=== PATIENT | male | born 1950 | race Caucasian/White ===

== ENCOUNTER 2019-11-10 10:47 | Outpatient (REF) | payer BC, SELFPAY ==
--- NOTE | 2019-11-10 | US_ITS ---
EXAMINATION: US EXTRACRANIAL CAROTID DUPLEX, BILATERAL CLINICAL INFORMATION: Carotid stenosis. Status post bilateral carotid endarterectomy. COMPARISON: 08/30/2017 carotid ultrasound. TECHNIQUE: Real-time ultrasound and Doppler techniques (integrating B-mode 2-D vascular images, Doppler spectral analysis and color-flow Doppler imaging) were utilized to interrogate the extracranial carotid arteries, the vertebral arteries and proximal subclavian arteries bilaterally. The degree of stenosis is determined by criteria similar to NASCET. FINDINGS: Severe echogenic atherosclerotic plaque was seen in the right arteries bilaterally. Endarterectomy changes are seen at the level the carotid bulbs bilaterally. Color Doppler interrogation demonstrated normal arterial waveforms with brisk systolic upstrokes. No tardus parvus waveform was identified. Arterial velocities were as follows in cm/s: RIGHT: Proximal CCA: 61 Distal CCA: 82 Proximal ICA: 125 Mid ICA: 93 Distal ICA: 78 ECA: 97 LEFT: Proximal CCA: 114 Distal CCA: 109 Proximal ICA: 141 Mid ICA: 134 Distal ICA: 110 ECA: 74 The vertebral arteries demonstrated normal arterial waveforms and direction of flow. IMPRESSION: 1. Elevated velocities in the the proximal segments of the internal carotid arteries bilaterally, left greater than right as well as the mid segment of the left internal carotid artery in the range of 50-79% stenosis by velocity criteria.
== END 2019-11-10 10:48 | disposition home or self-care (01) ==
LOC: HO.HMGCX 10:47
PROVIDERS: PCP Physician Assistant; Visit Provider Surgery Vascular Surgery
DX: I65.23 Occlusion and stenosis of bilateral carotid arteries (principal); Z98.890 Other specified postprocedural states
CPT/HCPCS: 93880

== ENCOUNTER → 2019-12-04 10:00 | Outpatient (BNVA) | payer BC, SELFPAY | PROVIDERS: PCP Physician Assistant; Referring Provider Physician Assistant; Visit Provider Surgery Vascular Surgery | DX: Z76.89 Persons encountering health services in other specified circumstances (principal) ==

== ENCOUNTER 2020-04-01 07:11 | Outpatient (REF) | payer BC, SELFPAY ==
[2020-04-01 08:01] LABS: Hematocrit 42.3 % (42-52); Hemoglobin 13.6 g/dl (14.0-18.0); Mean Corpuscular HGB Conc 32.2 g/dl (31.0-36.0); Mean Corpuscular Hemoglobin 30.2 pg (27.0-33.0); Mean Platelet Volume 9.3 fL (9.4-12.4); Platelet Count 181 X10*3/uL (160-400); Red Cell Distribution Width 13.6 % (11.0-16.0); White Blood Count 4.6 X10*3/uL (4.8-10.8)
[2020-04-01 09:16] LABS: Creatinine Urine 90.07 mg/dL; Microalbumin Urine < 5.0 mg/L
[2020-04-01 09:20] LABS: Alanine Aminotransferase 20 U/L (0-40); Albumin Level 3.9 g/dL (3.5-5.0); Alkaline Phosphatase 74 U/L (39-117); Anion Gap 11 (12-20); Aspartate Amino Transferase 19 U/L (5-37); Bilirubin Total 0.4 mg/dL (0.0-1.0); Blood Urea Nitrogen 21 mg/dL (9-16); Calcium 8.3 mg/dL (8.4-10.2); Carbon Dioxide 22 mmol/L (22-29); Chloride 109 mmol/L (96-108); Cholesterol 191 mg/dL; Estimated Glomerular Filt Rate > 60; Glucose Fasting 86 mg/dL (60-99); HDL Cholesterol 42 mg/dL; LDL Cholesterol Calculated 84 mg/dl; Potassium 4.3 mmol/L (3.3-5.1); Sodium 138 mmol/L (135-145); Total Protein 6.2 g/dL (6.5-8.0); Triglycerides 327 mg/dL
[2020-04-01 09:34] LABS: Prostate Specific Antigen Scr 0.99 ng/mL (<0.05-4.0); TSH reflex Free T4 2.93 uIU/mL (0.32-4.0)
== END 2020-04-01 07:12 | disposition home or self-care (01) ==
LOC: HO.LAB 07:11
PROVIDERS: PCP Physician Assistant; Visit Provider Physician Assistant
DX: I10 Essential (primary) hypertension (principal); Z12.5 Encounter for screening for malignant neoplasm of prostate
CPT/HCPCS: 36415; 80053; 80061; 82043; 84153; 84443; 85027

== ENCOUNTER 2020-09-29 07:09 | Outpatient (REF) | payer BC, SELFPAY ==
[2020-09-29 08:59] LABS: Hematocrit 42.6 % (42-52); Hemoglobin 13.7 g/dl (14.0-18.0); Mean Corpuscular HGB Conc 32.2 g/dl (31.0-36.0); Mean Corpuscular Hemoglobin 29.7 pg (27.0-33.0); Mean Corpuscular Volume 92.2 fL (80-98); Mean Platelet Volume 9.6 fL (9.4-12.4); Platelet Count 230 X10*3/uL (160-400); Red Blood Count 4.62 X10*6/uL (4.60-5.80); Red Cell Distribution Width 13.8 % (11.0-16.0); White Blood Count 5.6 X10*3/uL (4.8-10.8)
[2020-09-29 09:48] LABS: Alanine Aminotransferase 15 U/L (0-40); Alkaline Phosphatase 52 U/L (39-117); Anion Gap 10 (12-20); Aspartate Amino Transferase 20 U/L (5-37); Bilirubin Total 0.4 mg/dL (0.0-1.0); Blood Urea Nitrogen 15 mg/dL (9-16); Calcium 8.9 mg/dL (8.4-10.2); Carbon Dioxide 22 mmol/L (22-29); Chloride 109 mmol/L (96-108); Cholesterol 169 mg/dL; Estimated Glomerular Filt Rate 51; Glucose Fasting 81 mg/dL (60-99); HDL Cholesterol 40 mg/dL; LDL Cholesterol Calculated 60 mg/dl; Potassium 4.4 mmol/L (3.3-5.1); Sodium 137 mmol/L (135-145); Total Protein 6.3 g/dL (6.5-8.0); Triglycerides 346 mg/dL
== END 2020-09-29 07:10 | disposition home or self-care (01) ==
LOC: HO.LAB 07:09
PROVIDERS: PCP Physician Assistant; Visit Provider Physician Assistant
DX: E78.5 Hyperlipidemia, unspecified (principal); I10 Essential (primary) hypertension
CPT/HCPCS: 36415; 80053; 80061; 85027

== ENCOUNTER 2020-10-25 08:24 | Outpatient (REF) | payer BC, SELFPAY ==
--- NOTE | 2020-10-25 11:10 | MHC.AU.ANO ---
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 Iker was last tested at this office on 08/26/2019 and found to have normal/borderline normal low frequency thresholds, dropping to a severe high frequency sensorineural hearing loss bilaterally with 100% speech understanding for both ears at 65 dB HL. Compared to 2019 results, thresholds had decreased slightly for both ears. Hearing aid trial was discussed at the last visit and advised [facility] to determine if [facility] is [facility] for [facility] services. Iker reports he has not determined [facility] eligibility at this time, but plans to pursue when ready. Ear History: History of and occupational noise exposure?: Yes Medical History: Medical History: Heart Problems (Arythmia), High Blood Pressure, High cholesterol Medication List: Metoprolol, Lisinipril, Simvastatin, Topiramate, Loratidine. Recently placed on an additional cholesterol medication, but name of medication is not known. Otoscopy: Right Ear: Unremarkable Left Ear: Unremarkable Tympanometry: Not performed at today's visit as all previous testing has indicated normal middle ear function bilaterally. Otoacoustic Emissions Not performed at today's visit. Hearing Evaluation: Transducer(s) Used: Insert Earphones Bone Conduction Method: Conventional Audiometry Stimuli Used: Pure Tones Right Ear: Description of Hearing: Normal hearing thresholds at 250 and 500 Hz, sloping to a severe high frequency sensorineural hearing loss. Left Ear: Description of Hearing: Normal to borderline normal hearing thresholds at 250 and 500 Hz, sloping to a severe high frequency sensorineural hearing loss. Speech Recognition Threshold (SRT): Method Used: Monitored Live Voice Stimuli Used: Spondee Words Right Ear: 20 dB HL Left Ear: 25 dB HL Word Discrimination: Method: Recorded Lists Word Lists Used: NU-6 Right Ear: 88% at 60 dB HL 100% at 65 dB HL Left Ear: 100% at 65 dB HL Comparison: Compared to the most recent evaluation: Hearing is stable. Recommendations: Audiological re-evaluation in one year. Will send a reminder card. Patient plans to contact [facility] to inquire about [facility] aid benefits. Diagnosis: Primary Diagnosis: H90.3 Bilateral Sensorineural Hearing Loss Services Performed: Comprehensive Audiological Evaluation (CPT 04268) Signature: Provider: Jade Brewster, [facility]
== END 2020-10-25 08:25 | disposition home or self-care (01) ==
LOC: HO.SH 08:24
PROVIDERS: Visit Provider Physician Assistant
DX: H90.3 Sensorineural hearing loss, bilateral (principal)
CPT/HCPCS: 92557

== ENCOUNTER 2021-04-11 06:55 | Outpatient (REF) | payer BC, SELFPAY ==
[2021-04-11 07:20] LABS: Hematocrit 43.8 % (42.0-52.0); Hemoglobin 13.8 g/dl (14.0-18.0); Mean Corpuscular HGB Conc 31.5 g/dl (31.0-36.0); Mean Corpuscular Hemoglobin 29.4 pg (27.0-33.0); Mean Corpuscular Volume 93.4 fL (80.0-98.0); Mean Platelet Volume 8.9 fL (9.4-12.4); Platelet Count 211 X10*3/uL (160-400); Red Blood Count 4.69 X10*6/uL (4.60-5.80); Red Cell Distribution Width 13.9 % (11.0-16.0); White Blood Count 6.3 X10*3/uL (4.8-10.8)
[2021-04-11 07:42] LABS: Alanine Aminotransferase 13 U/L (0-40); Alkaline Phosphatase 49 U/L (39-117); Anion Gap 10 (12-20); Aspartate Amino Transferase 20 U/L (5-37); Bilirubin Total 0.4 mg/dL (0.0-1.0); Blood Urea Nitrogen 19 mg/dL (9-16); Calcium 8.8 mg/dL (8.4-10.2); Carbon Dioxide 22 mmol/L (22-29); Chloride 111 mmol/L (96-108); Cholesterol 156 mg/dL; Estimated Glomerular Filt Rate 48; Glucose Fasting 85 mg/dL (60-99); HDL Cholesterol 46 mg/dL; LDL Cholesterol Calculated 69 mg/dl; Potassium 4.3 mmol/L (3.3-5.1); Sodium 139 mmol/L (135-145); Total Protein 6.4 g/dL (6.5-8.0); Triglycerides 209 mg/dL
[2021-04-11 07:43] LABS: Creatinine Urine 110.48 mg/dL; Microalbum/Creatinine Ratio Ur 4.5 ug/mg cr
[2021-04-11 08:03] LABS: TSH reflex Free T4 2.25 uIU/mL (0.32-4.0)
== END 2021-04-11 06:56 | disposition home or self-care (01) ==
LOC: HO.LAB 06:55
PROVIDERS: PCP Physician Assistant; Visit Provider Physician Assistant
DX: I10 Essential (primary) hypertension (principal); E78.1 Pure hyperglyceridemia
CPT/HCPCS: 36415; 80053; 80061; 82043; 84443; 85027

== ENCOUNTER 2021-06-27 08:51 | Outpatient (REF) | payer BC, SELFPAY ==
--- NOTE | ~2021-06-27 | US_ITS ---
EXAMINATION: US RETROPERITONEAL LIMITED (AORTA) CLINICAL INFORMATION: History of smoking. Hypertension. Encounter for screening for cardiovascular disorders. COMPARISON: None TECHNIQUE: Tapia-scale, color Doppler and spectral Doppler evaluation of the abdominal aorta. FINDINGS: The aorta is atherosclerotic. The measurements of the aorta in maximum AP and transverse dimensions respectively are as follows: Proximal: 2.3 x 2.1 cm. Mid: 1.9 x 1.7 cm. Distal: 1.7 x 1.7 cm. PSV: 89 cm/s. The measurements of the common iliac arteries in maximum AP and TRV dimensions are as follows: Right Common Iliac Artery: 1.1 x 1.1 cm. Left Common Iliac Artery: 1.0 x 1.3 cm. US/US abdominal aortic aneurysm IMPRESSION: Negative for abdominal aortic aneurysm.
== END 2021-06-27 08:52 | disposition home or self-care (01) ==
LOC: HO.US 08:51
PROVIDERS: Visit Provider Physician Assistant
DX: Z13.6 Encounter for screening for cardiovascular disorders (principal); F17.200 Nicotine dependence, unspecified, uncomplicated; I10 Essential (primary) hypertension
CPT/HCPCS: 76706

== ENCOUNTER 2021-10-11 07:28 | Outpatient (REF) | payer MEDICARE, SELFPAY ==
[2021-10-11 07:56] LABS: Hematocrit 42.8 % (42.0-52.0); Hemoglobin 13.8 g/dl (14.0-18.0); Mean Corpuscular HGB Conc 32.2 g/dl (31.0-36.0); Mean Corpuscular Hemoglobin 29.5 pg (27.0-33.0); Mean Corpuscular Volume 91.5 fL (80.0-98.0); Mean Platelet Volume 9.5 fL (9.4-12.4); Platelet Count 220 X10*3/uL (160-400); Red Blood Count 4.68 X10*6/uL (4.60-5.80); Red Cell Distribution Width 14.1 % (11.0-16.0); White Blood Count 6.1 X10*3/uL (4.8-10.8)
[2021-10-11 08:41] LABS: Alanine Aminotransferase 16 U/L (0-40); Alkaline Phosphatase 48 U/L (39-117); Anion Gap 15 (12-20); Aspartate Amino Transferase 22 U/L (5-37); Bilirubin Total 0.4 mg/dL (0.0-1.0); Blood Urea Nitrogen 20 mg/dL (9-16); Calcium 8.9 mg/dL (8.4-10.2); Carbon Dioxide 19 mmol/L (22-29); Chloride 111 mmol/L (96-108); Cholesterol 163 mg/dL; Estimated Glomerular Filt Rate 47; Glucose Fasting 91 mg/dL (60-99); HDL Cholesterol 40 mg/dL; LDL Cholesterol Calculated 79 mg/dl; Potassium 4.9 mmol/L (3.3-5.1); Sodium 140 mmol/L (135-145); Total Protein 6.6 g/dL (6.5-8.0); Triglycerides 221 mg/dL
[2021-10-11 09:04] LABS: Prostate Specific Antigen Scr 0.59 ng/mL (<0.05-4.0)
[2021-10-11 09:28] LABS: Estimated Average Glucose 111 mg/dL; Hemoglobin A1c % 5.5 %
[2021-10-11 09:39] LABS: Creatinine Urine 103.55 mg/dL; Microalbumin Urine < 5.0 mg/L
== END 2021-10-11 07:29 | disposition home or self-care (01) ==
LOC: HO.LAB 07:28
PROVIDERS: PCP Physician Assistant; Visit Provider Physician Assistant
DX: Z12.5 Encounter for screening for malignant neoplasm of prostate (principal); I10 Essential (primary) hypertension
CPT/HCPCS: 36415; 80053; 80061; 82043; 83036; 84153; 85027

== ENCOUNTER 2022-05-05 12:49 | Outpatient (REF) | payer MEDICARE, SELFPAY ==
--- NOTE | ~2022-05-05 | US_ITS ---
EXAMINATION: US EXTRACRANIAL CAROTID DUPLEX, BILATERAL CLINICAL INFORMATION: Bilateral stenosis COMPARISON: Carotid duplex on 11/10/2019 TECHNIQUE: Real-time ultrasound and Doppler techniques (integrating B-mode 2-D vascular images, Doppler spectral analysis and color-flow Doppler imaging) were utilized to interrogate the extracranial carotid arteries, the vertebral arteries and proximal subclavian arteries bilaterally. The degree of stenosis is determined by criteria similar to NASCET. FINDINGS: Right Side: 1. There is severe atherosclerotic plaque seen in the bifurcation/proximal ICA region. 2. The common carotid artery PSV proximally is 48 cm/s and distally 69 cm/s. 3. The proximal internal carotid artery velocities are 105 cm/s systolic and 23 cm/s diastolic. 4. The proximal external carotid artery PSV is 79 cm/s. 5. The vertebral artery shows antegrade flow, however flow is monophasic. 6. The subclavian artery waveforms are normal. Left Side: 1. There is severe atherosclerotic plaque seen in the bifurcation/proximal ICA region. 2. The common carotid artery PSV proximally is 138 cm/s and distally 132 cm/s. 3. The proximal internal carotid artery velocities are 107 cm/s systolic and 30 cm/s diastolic. 4. The proximal external carotid artery PSV is 186 cm/s. 5. The vertebral artery shows antegrade flow, however flow is monophasic. 6. The subclavian artery waveforms are normal. US/US carotid duplex BI IMPRESSION: There is severe atherosclerotic disease in the bilateral common carotid and internal carotid arteries, however by velocity criteria to disease corresponds to less than 50% stenosis. 1. RIGHT: Minimal, non-hemodynamically significant stenosis of the proximal right internal carotid artery corresponding to a 0-49% stenosis by velocity criteria. 2. LEFT: Minimal, non-hemodynamically significant stenosis of the proximal left internal carotid artery corresponding to a 0-49% stenosis by velocity criteria. 3. Monophasic waveforms in the bilateral vertebral arteries.
== END 2022-05-05 12:50 | disposition home or self-care (01) ==
LOC: HO.HMGCX 12:49
PROVIDERS: PCP Physician Assistant; Visit Provider Surgery Vascular Surgery
DX: I65.23 Occlusion and stenosis of bilateral carotid arteries (principal)
CPT/HCPCS: 93880

== ENCOUNTER 2022-05-08 06:59 | Outpatient (REF) | payer MEDICARE, SELFPAY ==
[2022-05-08 08:05] LABS: Hematocrit 42.7 % (42.0-52.0); Hemoglobin 13.5 g/dl (14.0-18.0); Mean Corpuscular HGB Conc 31.6 g/dl (31.0-36.0); Mean Corpuscular Hemoglobin 28.9 pg (27.0-33.0); Mean Corpuscular Volume 91.4 fL (80.0-98.0); Mean Platelet Volume 9.6 fL (9.4-12.4); Platelet Count 205 X10*3/uL (160-400); Red Blood Count 4.67 X10*6/uL (4.60-5.80); Red Cell Distribution Width 13.9 % (11.0-16.0); White Blood Count 5.5 X10*3/uL (4.8-10.8)
[2022-05-08 08:27] LABS: Alanine Aminotransferase 17 U/L (0-40); Albumin Level 3.9 g/dL (3.5-5.0); Alkaline Phosphatase 48 U/L (39-117); Anion Gap 11 (12-20); Aspartate Amino Transferase 20 U/L (5-37); Bilirubin Total 0.6 mg/dL (0.0-1.0); Blood Urea Nitrogen 15 mg/dL (9-16); Calcium 8.9 mg/dL (8.4-10.2); Carbon Dioxide 22 mmol/L (22-29); Chloride 111 mmol/L (96-108); Cholesterol 164 mg/dL; Estimated Glomerular Filt Rate 48; Glucose Fasting 81 mg/dL (60-99); HDL Cholesterol 36 mg/dL; LDL Cholesterol Calculated 91 mg/dl; Potassium 4.7 mmol/L (3.3-5.1); Sodium 139 mmol/L (135-145); Total Protein 6.2 g/dL (6.5-8.0); Triglycerides 188 mg/dL
[2022-05-08 08:46] LABS: Creatinine Urine 64.29 mg/dL; Microalbumin Urine < 5.0 mg/L
[2022-05-08 08:46] LABS: Prostate Specific Antigen Scr 0.84 ng/mL (<0.05-4.0); TSH reflex Free T4 3.81 uIU/mL (0.32-4.0)
== END 2022-05-08 07:00 | disposition home or self-care (01) ==
LOC: HO.LAB 06:59
PROVIDERS: PCP Physician Assistant; Visit Provider Physician Assistant
DX: Z12.5 Encounter for screening for malignant neoplasm of prostate (principal); I10 Essential (primary) hypertension; E78.2 Mixed hyperlipidemia
CPT/HCPCS: 36415; 80053; 80061; 82043; 84153; 84443; 85027

== ENCOUNTER → 2022-06-08 15:18 | Outpatient (BNVA) | payer MEDICARE, SELFPAY | PROVIDERS: PCP Physician Assistant; Visit Provider Surgery Vascular Surgery | DX: I65.23 Occlusion and stenosis of bilateral carotid arteries (principal) | CPT/HCPCS: 99212 ==

== ENCOUNTER 2022-09-18 12:45 | Outpatient (RCR) | payer MEDICARE, SELFPAY ==
[2022-11-17 09:25] LABS: Immature Retic Fraction 17.2 % (2.3-13.4); Retic HGB Equivalent 34.2 pg (30.0-35.0); Reticulocyte Percent 1.6 % (0.5-1.8); Reticulocytes Absolute 0.078 X10*6/uL (0.026-0.095)
[2022-11-17 10:42] LABS: Rheumatoid Factor < 13.0 IU/mL (<15.0)
[2022-11-17 10:48] LABS: C Reactive Protein 0.22 mg/dL (< or = 0.50)
[2022-11-17 10:54] LABS: Ferritin 87 ng/mL (20-250)
[2022-11-17 10:56] LABS: Folate 8.2 ng/mL (> or = 4.0); Vitamin B12 214 pg/mL (200-900)
[2022-11-20 15:23] LABS: Anti Nuclear Antibody Screen NEGATIVE (NEGATIVE)
[2022-11-21 05:48] LABS: HLA B27 Negative (Negative)
[2022-11-23 04:59] LABS: PTT (LAC) Screen 35 sec (<=40)
== END 2023-05-25 15:00 | disposition home health service (06) ==
LOC: HO.WCC 12:45
PROVIDERS: Visit Provider Physician Assistant
DX: S00.00XD Unspecified superficial injury of scalp, subsequent encounter (principal); D23.4 Other benign neoplasm of skin of scalp and neck; I10 Essential (primary) hypertension; Z79.899 Other long term (current) drug therapy; Z87.891 Personal history of nicotine dependence
CPT/HCPCS: 11042; 11045; 17250; 82607; 82728; 82746; 83516; 84134; 85045; 85597; 85598; 85613; 85730; 86038; 86140; 86146; 86147; 86431; 86812; 97597; 99212; 99213; 99214

== ENCOUNTER 2022-09-18 15:23 | Outpatient (REF) | payer MEDICARE, SELFPAY | END 2022-09-18 15:24 | disposition home or self-care (01) | LOC: HO.SH 15:23 | PROVIDERS: Visit Provider Physician Assistant | DX: Z01.118 Encounter for examination of ears and hearing with other abnormal findings (principal); H90.3 Sensorineural hearing loss, bilateral | CPT/HCPCS: 92557 ==

== ENCOUNTER 2022-11-17 07:07 | Outpatient (REF) | payer MEDICARE, SELFPAY ==
[2022-11-17 09:24] LABS: Hematocrit 45.6 % (42.0-52.0); Hemoglobin 14.4 g/dl (14.0-18.0); Mean Corpuscular HGB Conc 31.6 g/dl (31.0-36.0); Mean Corpuscular Hemoglobin 28.7 pg (27.0-33.0); Mean Corpuscular Volume 90.8 fL (80.0-98.0); Mean Platelet Volume 10.1 fL (9.4-12.4); Platelet Count 195 X10*3/uL (160-400); Red Blood Count 5.02 X10*6/uL (4.60-5.80); Red Cell Distribution Width 14.2 % (11.0-16.0); White Blood Count 5.1 X10*3/uL (4.8-10.8)
== END 2022-11-17 07:08 | disposition home or self-care (01) ==
LOC: HO.LAB 07:07
PROVIDERS: PCP Physician Assistant; Visit Provider Physician Assistant
DX: I10 Essential (primary) hypertension (principal)
CPT/HCPCS: 36415; 85027

== ENCOUNTER 2022-11-20 08:24 | Outpatient (AMB) | payer MEDICARE, SELFPAY ==
--- NOTE | 2022-11-20 08:38 | MHC.PC.OV ---
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 Trauma Registrar: Not Required per policy Accompanied by: Self / Same As Patient Allergies No Known Allergies Allergy (Verified 11/20/22 08:46) Medication List - Last Reconciled 11/20/22 by Ehsan Payne PA-C albuterol sulfate 90 mcg/actuation 1 inh inhalation QID PRN 30 days aspirin (Adult Aspirin Regimen) 81 mg PO DAILY ipratropium bromide 2 sprays intranasal BID lisinopril 30 mg PO DAILY metoprolol succinate ER 25 mg PO DAILY simvastatin 40 mg PO BEDTIME 90 days topiramate 50 mg (2 x 25 mg) PO BID 90 days Tobacco use date assessed: 11/20/22 Fall risk assessment: No Falls in past year Last assessed Fall Risk: 11/20/22 Dental Screening Dental Screen Date: 11/20/22 Did you have a dental visit in the last 12 months?: No Did you have a dental problem in the last 6 months where you did not have access to dental care?: No Was dental information given to patient?: Patient has dentist HPI 6mth f/u HPI Details Iker is a 71 y/o M here today for follow-up visit. PAtient has a Pmhx of HLD, Migraines, HTN, carotid stenosis. ? Concern--> has been seeing a net lead architect for scalp actinic keratoses to which he has gotten biopsies, unfortunately complicated by delayed wound healing [facility] Dermatology considering skin graft. Awaiting on rheumatology lab testing. He also reports having left knee tightness and pain. Does use a left knee brace while he golfs which has helped. He does report a previous history of left knee arthroscopic surgery for meniscus tear. ? .. ? HTN: Blood pressure elevated today in office.? reports his blood pressures at home are 120 is 130 systolic. Deneis any CP/ SOB, Edema in extremities. Is followed by briquette machine operator helper ([facility] cardiology). ? .. ? Carotid stenosis :? Is followed yearly by /Vascular.? Denies any further episodes of dizziness were syncope. Patient is a smoker has quit several years ago. REcent Carotid US -->There is severe atherosclerotic disease in the bilateral common carotid and internal carotid arteries, however by velocity criteria to disease corresponds to less than 50% stenosis. ? .. ? HLD: Patient on statin therapy and reporting no side effects. Most recent lipid panel showing acceptable LDL and total cholesterol. Has been making lifestyle modifications to his diet to reduce his cholesterol as well. Triglycerides are much improved, will discontinue fenofibrate due to risk of myopathy. Laboratory Tests 11/17/22 07:41 WBC 5.1 Immature Retic Fra ction 17.2 H Ferritin 87 C-Reactive Protein 0.22 Vitamin B12 214 Folate 8.2 Rheumatoid Factor < 13.0 PFSH Medical History Tubular adenoma of colon Former smoker Surgical History H/O carotid endarterectomy S/P wisdom tooth extraction Hx of shoulder surgery Family History Father Myocardial infarction Mother Hypertension Emphysema lung Myocardial infarction Substance use disorder Son No problems noted. Son No problems noted. Son No problems noted. Daughter No problems noted. Social History Housing: House Alcohol intake: current Alcohol intake frequency: 0-2 drinks per day Alcohol type: wine Patient Tobacco Use Status: Former Tobacco user Quit Date: 1999 e-Cigarette/Vaping Use: Never Used Second Hand Smoke Exposure: No service: No Current occupational status: unemployed and retired Current occupation: [employer] Cognitive needs: No Hearing needs: No Vision needs: Yes (Glasses) Questionnaire Thrive Questionnaire Date Thrive assessed: 05/17/22 JEFF-7 AMB Questionnaire JEFF-7 Date JEFF - 7 assessed: 05/17/22 Source: Developed by Drs. Tim Power, Digna Ascencio, Dani Herrera and colleagues, with an educational dianelys from [employer]. Review of Systems Const Denies headache(s) Eyes Denies loss of vision ENT Denies vertigo, Denies dizziness, Denies headache(s) and Denies sore throat Card Denies chest pain, Denies leg edema and Denies lightheadedness Resp Denies cough, Denies hemoptysis and Denies wheezing GI Denies abdominal pain, Denies melena, Denies constipation, Denies diarrhea and Denies vomiting Denies dysuria, Denies urinary frequency and Denies urinary urgency Musc Denies arthralgias, Denies joint swelling, Denies numbness and Denies tingling Neuro Denies Abnormal speech present, Denies behavioral changes, Denies vertigo, Denies dizziness, Denies headache(s), Denies loss of vision, Denies memory loss, Denies numbness and Denies tingling Psych Denies anxiety, Denies behavioral changes, Denies depression, Denies memory loss and Denies panic attacks Ronal/Lymph Denies easy bleeding and Denies easy bruising Aller/Immun Denies wheezing Physical exam (Primary Care) Vital Signs: Last Vital Signs Pulse 50 11/20/22 08:39 BP 140/90 H 11/20/22 08:39 Pulse Ox 96 11/20/22 08:39 Oxygen Delivery Method Room Air 11/20/22 08:39 BMI result Body Mass Index 25.8 Tobacco/Smoking Status: Tobacco use Status Tobacco use date assessed 11/20/22 11/20/22 08:40 Patient Tobacco Use Status Former Tobacco user 11/20/22 08:39 e-Cigarette/Vaping Use Never Used 11/20/22 08:39 Thrive Assessment: Date of Thrive Assessment Date Thrive assessed 05/17/22 11/20/22 08:39 Const General: healthy appearing, no acute distress, alert and awake Nutritional Appearance: well nourished Orientation/consciousness: oriented to person, oriented to place and oriented to time [facility] Ears: TM's normal bilaterally General nose exam: Normal nasal mucous membranes and turbinates present Eyes Conjunctivae: conjunctivae normal Sclerae: sclerae normal Pupils: Equal, round and reactive pupils present Neck Neck: Yes no lymphadenopathy and Yes no JVD Thyroid: Thyroid normal Carotids: no bruits Resp Effort & Inspection: normal respiratory effort and not tachypneic Auscultation: no crackles, no rales, no rhonchi and no wheezes Cardio Rate: regular rate Rhythm: regular rhythm Heart sounds: no murmurs and normal S1 and S2 GI Palpation (GI): Soft to palpation, nontender, no hepatomegaly and no splenomegaly Auscultation: normal bowel sounds Skin General skin exam: no rashes or lesions noted and dry skin Neuro General: oriented to person, oriented to place and oriented to time Cranial nerves: Yes Equal, round and reactive pupils present Speech: No Abnormal speech present Gait exam (Neuro): Normal gait present Motor exam (neuro): no tremor noted Extrem Right upper extremity: full ROM Left upper extremity: full ROM Right lower extremity: full ROM; no edema Left lower extremity: full ROM; no edema Psych Mental Status: mental status grossly normal Speech and movement: Normal speech and movement present Affect: normal affect Attitude: cooperative Thought process: Normal thought process present Office Procedures Flu Questionnaire Does the patient have a severe egg allergy?: No Immunizations flu vacc [id number] 6mos up(PF) 60 mcg(15 mcgx4)/0.5 mL IM syringe Performing Provider: Ehsan Payne PA-C [facility] Documented (not given) by: RADHA Quiles on 11/20/22 08:44 Reason Not Given: Patient Refused Assessment and Plan Assessment & Plan (1) HTN (hypertension): Code(s): I10 - Essential (primary) hypertension Qualifiers: Hypertension type: primary hypertension Qualified Code(s): I10 - Essential (primary) hypertension Plan: Patient's blood pressure slightly elevated today in office. He reports that home and at other medical office his blood pressures have been stable. Continues with lisinopril and metoprolol with good effect. Otherwise denies any chest discomfort, headaches dizziness. Goal blood pressures remain below 140/90 (2) Carotid stenosis: Comment: 2019 - bilateral carotid endarterectomy by Dr. Malloy Code(s): I65.29 - Occlusion and stenosis of unspecified carotid artery Qualifiers: Laterality: bilateral Qualified Code(s): I65.23 - Occlusion and stenosis of bilateral carotid arteries Plan: Patient continues to follow vascular. Most recent ultrasound showing severe right carotid stenosis though hemodynamically stable. Will continue follow-up with vascular surgeon. (3) HLD (hyperlipidemia): Code(s): E78.5 - Hyperlipidemia, unspecified Qualifiers: Hyperlipidemia type: mixed hyperlipidemia Qualified Code(s): E78.2 - Mixed hyperlipidemia Plan: Patient's most recent lipid panel showing at appropriate total cholesterol and LDL. Triglycerides are well managed. He continues to work on lifestyle modifications on reducing high cholesterol/high triglyceride foods. (4) Scalp wound: Code(s): S01.00XA - Unspecified open wound of scalp, initial encounter Qualifiers: Encounter type: subsequent encounter Open wound type: unspecified Qualified Code(s): S01.00XD - Unspecified open wound of scalp, subsequent encounter Plan: Continues to have difficulty with delayed wound healing over his scalp due to recent biopsies. Dermatology considering skin grafting. (5) Left knee pain: Code(s): M25.562 - Pain in left knee Qualifiers: Chronicity: chronic Qualified Code(s): M25.562 - Pain in left knee; G89.29 - Other chronic pain Plan: Reports having left knee tightness and pain. He reports having a surgery in his left knee to fix a meniscal tear. He would like another evaluation of his left knee through orthopedics. Will send for x-rays to evaluate for advancing osteoarthritis. Orders: Orders Influenza [id number] Immunization Today Z23 - Encounter for immunization Lipid Panel Today E78.2 - Mixed hyperlipidemia Microalbumin, Random (w Creat) Today I10 - Essential (primary) hypertension XR knee LT 3V Today G89.29 - Other chronic pain, M25.562 - Pain in left knee Comprehensive Rapelje. Panel Fast Today I10 - Essential (primary) hypertension Prostate Specific Antigen Scr Today I10 - Essential (primary) hypertension, Z12.5 - Encounter for screening for malignant neoplasm of prostate Referrals Orthopedics Referral M17.12 - Unilateral primary osteoarthritis, left knee, M25.562 - Pain in left knee Coding Level of Care Code Est Pt Level 4 (63076) Diagnoses Primary hypertension I10 Hypertension type: primary hypertension Bilateral carotid artery stenosis I65.23 Laterality: bilateral Mixed hyperlipidemia E78.2 Hyperlipidemia type: mixed hyperlipidemia Open wound of scalp, unspecified open wound type, subsequent encounter S01.00XD Encounter type: subsequent encounter Open wound type: unspecified Chronic pain of left knee M25.562; G89.29 Chronicity: chronic
[2022-11-20 08:39] VITALS: BP 140/90; PULSE 50; O2SAT 96; BMI 25.8
== END 2022-11-20 09:03 | disposition home or self-care (01) ==
PROVIDERS: Visit Provider Physician Assistant
DX: I10 Essential (primary) hypertension (principal); I65.23 Occlusion and stenosis of bilateral carotid arteries; E78.2 Mixed hyperlipidemia; S01.00XD Unspecified open wound of scalp, subsequent encounter; M25.562 Pain in left knee; G89.29 Other chronic pain
CPT/HCPCS: 99214

== ENCOUNTER 2022-11-24 08:45 | Outpatient (REF) | payer MEDICARE, SELFPAY ==
--- NOTE | ~2022-11-24 | XR_ITS ---
EXAMINATION: XR KNEE, LEFT CLINICAL INFORMATION: Left knee pain COMPARISON: None available. TECHNIQUE: Three views of the left knee. FINDINGS: BONES: Bony structures are intact. There is no focal bone destruction or periosteal reaction seen. JOINTS: Alignment of joints is normal. SOFT TISSUE: Soft tissue is normal. No radiopaque foreign body or abnormal air collection is seen. Marked atherosclerotic calcifications are seen in the left popliteal fossa. XR/XR knee LT 3V IMPRESSION: 1. Normal x-rays of left knee. No fracture or dislocation or signs of osteomyelitis are found. Some fractures could be difficult to visualize on plain x-rays, especially in the osteopenic and relatively old patients. If there are significant clinical suspicion or symptoms of fracture, further evaluation with CT or MRI scan should be considered.
== END 2022-11-24 08:46 | disposition home or self-care (01) ==
LOC: HO.XRAY 08:45
PROVIDERS: PCP Physician Assistant; Visit Provider Physician Assistant
DX: M25.562 Pain in left knee (principal); G89.29 Other chronic pain
CPT/HCPCS: 73562

== ENCOUNTER 2022-12-21 09:27 | Outpatient (AMB) | payer MEDICARE, SELFPAY ==
[2022-12-21 09:28] VITALS: BMI 25.8
--- NOTE | 2022-12-21 09:28 | A.OFFVIS_ITS ---
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 Patient reports that his right knee has been painful for about a year now. He has previous knee scope done with menisectomy, this was done in [place]. He states that he did great after the surgery up until the last year. He feels that the knee is sore, he is wearing knee brace which does help. No history of cortisone injections. 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 He complains of pain with daily activity, which he says worsens with exercise or overuse. He says his pain began ~1 year ago, and he describes this as soreness . He feels pain globally about his knee, which is slightly worse in the back. He wears a knee brace with activities, especially golfing, which gives him some relief. He walks once a week and does two sessions of [employer] a week, which tires him out. He says this exercise program involves cardio activities and is not done primarily while sitting. He denies any prior injections or PT. He has a hx of left knee for a meniscus tear in ~1999. This was done at [place]. He says his knee was doing well following surgery until last year when his pain began. [facility] Medical History Tubular adenoma of colon Former smoker Surgical History (Updated 12/21/22 @ 09:34 by Margot Puckett CMA) H/O left knee surgery (~1999) H/O carotid endarterectomy S/P wisdom tooth extraction Hx of shoulder surgery Family History Father Myocardial infarction Mother Hypertension Emphysema lung Myocardial infarction Substance use disorder Son No problems noted. Son No problems noted. Son No problems noted. Daughter No problems noted. Social History Housing: House Alcohol intake: current Alcohol intake frequency: 0-2 drinks per day Alcohol type: wine Patient Tobacco Use Status: Former Tobacco user Quit Date: 1999 e-Cigarette/Vaping Use: Never Used Second Hand Smoke Exposure: No service: No Current occupational status: unemployed and retired Current occupation: [employer] Cognitive needs: No Hearing needs: No Vision needs: Yes (Glasses) Review of Systems Const All systems reviewed & are unremarkable except as noted in HPI and below Physical Exam Vital Signs: BMI result Body Mass Index 25.8 Const General: no acute distress, alert and awake Orientation/consciousness: patient oriented x3 HEENT Head: Yes normocephalic and Yes atraumatic Eyes EOM: EOMs intact bilaterally Resp Effort & Inspection: normal respiratory effort and able to speak in complete sentences Cardio Jugular venous distension: no JVD Skin General skin exam: turgor normal Rashes: no rashes Neuro General: patient oriented x3 Extrem Other: Left Knee: Medial joint TTP No effusion 5-125 deg motion Psych Appearance: grossly normal Affect: normal affect Attitude: cooperative Office Procedures Joint Injection/Drain Joint Injection/Drain Details: Injected 1 mL of Decadron and 3 mL 1% lidocaine and 3 mL of 0.25% Marcaine. Site was prepped using aseptic technique. Patient tolerated the procedure well. Primary Site: left knee Approach Used: anterolateral Coding 31133 - Large joint Procedure code (CPT) selection complete Results Reviewed Results Reviewed: I personally reviewed relevant radiographs Normal x-rays of left knee. No fracture or dislocation or signs of osteomyelitis are found. Assessment & Plan Assessment & Plan (1) Left knee pain: Code(s): M25.562 - Pain in left knee Qualifiers: Chronicity: chronic Qualified Code(s): M25.562 - Pain in left knee; G89.29 - Other chronic pain Plan: This is a 71 year old man with left knee pain, and a hx of knee in 1999. He has pain primarily with overuse when exercising or prolonged ambulation. He finds relief from wearing a knee brace and denies any hx of injections or PT. His radiographs are unremarkable and his pain is not reproducible on exam. I discussed his diagnosis and treatment options. I performed a diagnostic steroid injection to his left knee, which he tolerated well. He will follow up if his symptoms persist or worsen and we will consider PT and activity modification. Plan Scribed for Parish Marie MD by Cirilo Horowitz medical technologist generalist, on 12/21/22 at 9:45 AM, EST. Coding Level of Care Code New Pt Level 4 (38625) Diagnoses Chronic pain of left knee M25.562; G89.29 Chronicity: chronic CPT Codes Coding - 97131 Large joint: 48158 - Large joint ([id number])
== END 2022-12-21 10:19 | disposition home or self-care (01) ==
PROVIDERS: PCP Physician Assistant; Visit Provider Orthopaedic Surgery
DX: M25.562 Pain in left knee (principal); G89.29 Other chronic pain
CPT/HCPCS: 20610; 99204

== ENCOUNTER → 2022-12-21 09:27 | Outpatient (BNVA) | payer MEDICARE, SELFPAY | PROVIDERS: PCP Physician Assistant; Visit Provider Orthopaedic Surgery | DX: M25.562 Pain in left knee (principal); G89.29 Other chronic pain | CPT/HCPCS: 20610; 99202; J0665; J1100 ==

== ENCOUNTER 2022-12-22 08:10 | Outpatient (AMB) | payer MEDICARE, SELFPAY ==
[2022-12-22 08:27] VITALS: BP 130/78; PULSE 78; TEMP 36.6; O2SAT 95; BMI 25.8
--- NOTE | 2022-12-22 08:27 | AM.OFFWIN_ITS ---
Intake Vital Signs 12/22/22 08:27 Height 5 ft 6 in Weight 160 lb BMI 25.8 BP 130/78 Blood Pressure Location Rt brachial Position Sitting Pulse 78 Pulse Source Pulse Oximeter Temp 97.8 F Temp Source Temporal Artery Scan Pulse Oximetry (%) 95 Oxygen Delivery Method Room Air Intake Visit Reasons: EST/cough X 3 weeks (lobby masked) Intake Note: pt is here for c/o cough x3 week Patient Tobacco Use Status: Former Tobacco user Quit Date: 1999 Allergies No Known Allergies Allergy (Verified 12/22/22 08:27) Do you need a note to return to daycare/school/sports/work: Yes HPI HPI Comments History of Present Illness Details This is a 71-year-old male who presents to the office today for sick visit. Patient complaining of a persistent cough x3 weeks. Patient states he developed viral URI symptoms such as sinus/nasal congestion, rhinorrhea, sore throat, and low-grade fevers approximately 3 weeks ago. He states that the symptoms have all resolved but he has a persistent dry cough. He states the cough is worse at night. He denies any significant shortness of breath, but does feel slightly winded during a coughing fit. He has been using his albuterol inhaler with good relief. He has been using PO benzonatate 200 mg 3 times daily as needed with good relief. [facility]LY [facility] Medical History Tubular adenoma of colon Former smoker Surgical History (Updated 12/21/22 @ 09:34 by Margot Puckett CMA) H/O left knee surgery (~1999) H/O carotid endarterectomy S/P wisdom tooth extraction Hx of shoulder surgery Family History Father Myocardial infarction Mother Hypertension Emphysema lung Myocardial infarction Substance use disorder Son No problems noted. Son No problems noted. Son No problems noted. Daughter No problems noted. Social History Housing: House Alcohol intake: current Alcohol intake frequency: 0-2 drinks per day Alcohol type: wine Patient Tobacco Use Status: Former Tobacco user Quit Date: 1999 e-Cigarette/Vaping Use: Never Used Second Hand Smoke Exposure: No service: No Current occupational status: unemployed and retired Current occupation: [employer] Cognitive needs: No Hearing needs: No Vision needs: Yes (Glasses) Review of Systems Const All systems reviewed & are unremarkable except as noted in HPI and below Reports no additional complaints Eyes Reports no additional complaints ENT Reports no additional complaints Card Reports no additional complaints Resp Reports no additional complaints GI Reports no additional complaints Reports no additional complaints Musc Reports no additional complaints Skin/Breast Reports system reviewed and no additional complaints, except as documented Neuro Reports no additional complaints Psych Reports no additional complaints Endo Reports no additional complaints Ronal/Lymph Reports no additional complaints Aller/Immun Reports no additional complaints Physical Exam Vital Signs: Last Vital Signs Temp 97.8 F 12/22/22 08:27 Pulse 78 12/22/22 08:27 BP 130/78 12/22/22 08:27 Pulse Ox 95 12/22/22 08:27 Oxygen Delivery Method Room Air 12/22/22 08:27 BMI result Body Mass Index 25.8 Const Other: Vital signs reviewed. Constitutional: Non-toxic appearing. No acute distress. Well-developed and well-nourished. HEENT: Normocephalic and atraumatic. Skin: Warm and dry. No rashes or lesions noted. Neck: Full and painless range of motion. No cervical lymphadenopathy. Cardio: Regular rate and rhythm. No murmurs, gallops, or rubs. No lower extremity edema. No JVD. Pulmonary: No respiratory distress. No accessory muscle usage. Scant expiratory wheezing. Gastrointestinal: Soft, nontender, and nondistended in all 4 quadrants. Normoactive bowel sounds in all 4 quadrants. Genitourinary: No CVA tenderness. Musculoskeletal: Normal range of motion in joints throughout the body. No deformity or other signs of injury. Neuro: Alert and oriented x4. Cranial nerves 2-12 grossly intact. No focal deficits appreciated. Psych: Normal mood and affect. Assessment & Plan Assessment & Plan (1) Acute bronchitis: Code(s): J20.9 - Acute bronchitis, unspecified Plan: This is a 71-year-old male who presents to the office complaining of a persistent dry cough x3 weeks in the setting of viral URI symptoms. On physical examination, patient has scant expiratory wheezing but his physical exam is otherwise benign and his vital signs are stable. History and physical most consistent with an acute post viral bronchitis. Patient sent home on p.o. prednisone 40 mg daily x5 days. He was instructed to continue using PO benzon atate 200 mg 3 times daily as needed for cough. He was instructed to continue using albuterol inhaler as needed for wheezing/shortness of breath. Patient was advised to follow-up here or proceed to the emergency room if he were to develop worsening sputum production, worsening shortness of breath, fever/chills, or hemoptysis. Patient verbalizes understanding and he is in agreement with the plan. Medications: New prednisone 40 mg (2 x 20 mg) PO DAILY 10 tabs 0RF Coding Level of Care Code Est Pt Level 3 (93456) Diagnoses Acute bronchitis J20.9
== END 2022-12-22 08:49 | disposition home or self-care (01) ==
PROVIDERS: PCP Physician Assistant; Visit Provider Physician Assistant Medical
DX: J20.9 Acute bronchitis, unspecified (principal)
CPT/HCPCS: 99213

== ENCOUNTER 2023-02-09 10:12 | Outpatient (REF) | payer MEDICARE, SELFPAY ==
--- NOTE | ~2023-02-09 | XR_ITS ---
EXAMINATION: XR SKULL CLINICAL INFORMATION: Nonhealing component of the sculp COMPARISON: None available. TECHNIQUE: 3 views of the skull were obtained. FINDINGS: Osseous structures are unremarkable. Soft tissues are normal. There is no evidence of abnormal soft tissues or gas in the soft tissues. Visualized paranasal sinuses are well aerated. Mastoids are well aerated. XR/XR skull <4V IMPRESSION: Unremarkable examination.
== END 2023-02-09 10:13 | disposition home or self-care (01) ==
LOC: HO.XRAY 10:12
PROVIDERS: PCP Physician Assistant; Visit Provider Physician Assistant
DX: S01.00XD Unspecified open wound of scalp, subsequent encounter (principal)
CPT/HCPCS: 70250

== ENCOUNTER 2023-03-12 07:32 | Day surgery (SDC) | payer MEDICARE, SELFPAY ==
[2023-03-08 14:58] VITALS: BMI 25.5
--- NOTE | 2023-03-09 09:17 | P.CONAN_ITS ---
HPI - Anesthesia Eval Consult details Narrative: 72yo M for Colonoscopy [facility] Active Problems Active Problems: All Active Problems (Updated 03/08/23 @ 14:57 by Catalina Riojas RN) Osteoarthritis of left knee (Acute) Left knee pain (Acute) Scalp wound (Acute) Colon cancer screening (Acute) Screening for AAA (abdominal aortic aneurysm) (Acute) Sensorineural hearing loss (SNHL) of both ears (Acute) Hypertriglyceridemia (Acute) Annual physical exam (Acute) Carotid stenosis (Acute) HTN (hypertension) (Acute) HLD (hyperlipidemia) (Acute) Past Medical History Medical History Osteoarthritis Carotid stenosis Elevated cholesterol HTN (hypertension) Tubular adenoma of colon Former smoker Family History Family History Father Myocardial infarction Mother Hypertension Emphysema lung Myocardial infarction Substance use disorder Son No problems noted. Son No problems noted. Son No problems noted. Daughter No problems noted. Surgical History Surgical History (Updated 03/08/23 @ 15:00 by Catalina Riojas RN) H/O colonoscopy H/O left knee surgery (~1999) H/O carotid endarterectomy S/P wisdom tooth extraction Hx of shoulder surgery Social History Social History Housing: House Alcohol intake: current Alcohol intake frequency: 0-2 drinks per day Alcohol type: wine Patient Tobacco Use Status: Former Tobacco user Quit Date: 1999 e-Cigarette/Vaping Use: Never Used Second Hand Smoke Exposure: No service: No Current occupational status: unemployed and retired Current occupation: [employer] Cognitive needs: No Hearing needs: No Vision needs: Yes (Glasses) Meds Allergies Allergy/AdvReac Type Severity Reaction Status Date / Time No Known Allergies Allergy Verified 12/22/22 08:27 Home Medications Medication Instructions Recorded Confirmed Last Taken Type aspirin 81 mg tablet,delayed 81 mg PO DAILY 12/04/19 03/08/23 Unknown History release (Adult Aspirin Regimen) metoprolol succinate 25 mg 25 mg PO DAILY 12/04/19 03/08/23 Unknown History tablet,extended release 24 hr Exam Height,Weight and Vital Signs: Height 5 ft 6 in Weight 71.668 kg Pertinent Lab Results Pertinent Lab Results: Laboratory Tests 11/17/22 07:41 WBC 5.1 Hgb 14.4 Hct 45.6 Plt Count 195 Assessment and Plan Assessment Anesthesia Assessment: Chart Reviewed
--- NOTE | 2023-03-12 07:23 | HO.ANESPROP2 ---
COUNT INCLUDES THE [facility] Active Problems Active Problems: All Active Problems (Updated 03/12/23 @ 06:32 by Maine Mtz RN) Osteoarthritis of left knee (Acute) Left knee pain (Acute) Scalp wound (Acute) Colon cancer screening (Acute) Screening for AAA (abdominal aortic aneurysm) (Acute) Sensorineural hearing loss (SNHL) of both ears (Acute) Hypertriglyceridemia (Acute) Annual physical exam (Acute) Carotid stenosis (Acute) HTN (hypertension) (Acute) HLD (hyperlipidemia) (Acute) Past Medical History Medical History Asthma History of supraventricular tachycardia Migraines Osteoarthritis Carotid stenosis Elevated cholesterol HTN (hypertension) Tubular adenoma of colon Former smoker Functional capacity: independent ambulation Family History Family History Father Myocardial infarction Mother Hypertension Emphysema lung Myocardial infarction Substance use disorder Son No problems noted. Son No problems noted. Son No problems noted. Daughter No problems noted. Family history of problems with anesthesia: No Surgical History Surgical History H/O colonoscopy H/O left knee surgery (~1999) H/O carotid endarterectomy S/P wisdom tooth extraction Hx of shoulder surgery Social History Social History Housing: House Alcohol intake: current Alcohol intake frequency: 0-2 drinks per day Alcohol type: wine Patient Tobacco Use Status: Former Tobacco user Quit Date: 1999 e-Cigarette/Vaping Use: Never Used Second Hand Smoke Exposure: No service: No Current occupational status: unemployed and retired Current occupation: [employer] Cognitive needs: No Hearing needs: No Vision needs: Yes (Glasses) Meds Allergies Allergy/AdvReac Type Severity Reaction Status Date / Time No Known Allergies Allergy Verified 12/22/22 08:27 Active Medications: Current Medications Lactated Ringer's (Lr) 1,000 mls @ 100 mls/hr IVCONT .Q10H RAFA Sodium Biphosphate/Sodium Phosphate (Sodium Phosphate,Maverick-Dibasic 133 Ml Enema) 133 ml FL ONCE PRN PRN Reason: Poor Colonoscopy Prep Results Home Medications Medication Instructions Recorded Confirmed Last Taken Type aspirin 81 mg tablet,delayed 81 mg PO DAILY 12/04/19 03/08/23 Unknown History release (Adult Aspirin Regimen) metoprolol succinate 25 mg 25 mg PO DAILY 12/04/19 03/08/23 03/12/23 History tablet,extended release 24 hr Exam Height,Weight and Vital Signs: Height 5 ft 6 in Weight 71.668 kg Airway Mallampati Class: II TM Dist: >3cm Neck ROM: Full Heart: RRR Lungs: CTA Assessment and Plan Assessment Anesthesia Assessment: Anesthesia Plan Discussed Final Anesthetic Review Family History of Problems with Anesthesia: No NPO: Yes ASA Class: II Final Preanesthetic Review: Meds/Allgs Chart Reviewed, Consent Obtained/Reviewed and Anes Risks/Benef Reviewed Patient Risk: Low Procedure Risk: Low Anesthetic Plan Anesthetic Plan: MAC: Disposition: Standard PACU
[2023-03-12 07:43] VITALS: BMI 26.0
[2023-03-12 08:08] VITALS: BP 114/75; PULSE 80; RESP 16; TEMP 36.6; O2SAT 97
[2023-03-12] MEDS: Lactated Ringers 1,000 ML 100 ML IVCONT (08:14)
[2023-03-12 09:45] VITALS: BP 118/105; PULSE 60; TEMP 36.4; O2SAT 97
--- NOTE | 2023-03-12 09:47 | PM.OP ---
Brief Operative Note Date of Service: 03/12/23 Pre-op diagnosis: Screening Post-op diagnosis: other (Colon polyps) Procedure: Colonoscopy to the cecum with bx/removal of polyps Surgeon: Tim Schmitt MD Anesthesia: MAC Was an Restaurant Assistant used for this Procedure?: No Estimated blood loss (mL): 2.0 Pathology: other (A. Transverse colon polyp B. Polyp at 20cm C. Rectal polyp) Condition: stable Disposition: PACU
[2023-03-12 10:00] VITALS: BP 77/45; PULSE 51; RESP 16; O2SAT 96
[2023-03-12 10:15] VITALS: BP 98/56; PULSE 50; O2SAT 98
--- NOTE | 2023-03-12 10:27 | HO.POSTANES ---
Post Anesthesia Evaluation Post Anesthesia Evaluation Date of Service: 03/12/23 Vital Signs: Vital Signs Temp Pulse Resp BP Pulse Ox O2 Del Method 03/12/23 10:15 50 89/50 L 98 Room Air 03/12/23 10:00 51 16 77/45 L 96 Room Air 03/12/23 09:45 97.5 F 60 118/105 H 97 Room Air 03/12/23 08:08 97.8 F 80 16 114/75 97 Room Air Anesthesia: Monitored Mental Status: Awake Pain Control: Satisfactory Nausea/Vomiting: None Hydration: Adequate Anesthesia-Related Issues: No Anes. Related Issues
[2023-03-12 10:29] VITALS: BP 108/59; PULSE 87; RESP 16; O2SAT 98
--- NOTE | 2023-03-12 11:35 | OP_ITS ---
DATE OF SERVICE: 03/12/2023 SURGEON: Tim Schmitt MD INDICATIONS: The patient presents for evaluation of colorectal cancer screening and personal history of tubular adenoma of the colon. Full consent was obtained from him for this, including risks of bleeding and perforation. PREOPERATIVE DIAGNOSIS: POSTOPERATIVE DIAGNOSIS: PROCEDURE PERFORMED: Colonoscopy to cecum with biopsy and removal of polyps. ESTIMATED BLOOD LOSS: COMPLICATIONS: ANESTHESIA: Medication used: Monitored anesthesia care. ASSISTANTS: SPECIMENS: PREOPERATIVE DIAGNOSES: Colorectal cancer screening and personal history of tubular adenoma of the colon. POSTOPERATIVE DIAGNOSES: Colorectal cancer screening and personal history of tubular adenoma of the colon, small colon polyps, diverticulosis, and internal hemorrhoids. DESCRIPTION OF PROCEDURE: The patient was placed in the left lateral decubitus position. The digital rectal exam revealed no abnormalities. The Olympus video pediatric colonoscope was entered into the rectum and advanced easily to the cecum. Once in the cecum, I did identify normal-appearing cecal pouch with appendiceal orifice and a normal-appearing ileocecal valve. The entire cecum and ileocecal valve appeared normal. The scope was slowly withdrawn assessing all mucosal surfaces carefully. Preparation was excellent. In the transverse colon, at 20 cm, and in the rectum there were flat less than 5 mm polyps, which were each biopsied and completely removed with cold biopsy forceps. I did not visualize any other polyps, colitis, nor angiodysplasia. There was a moderate amount of sigmoid diverticulosis. In the rectum, scope was retroflexed visualizing internal hemorrhoids, but no other pathology. The rectal mucosa appeared normal. The scope was straightened out and withdrawn from the patient. He tolerated the procedure well and was returned to the recovery area in stable condition. IMPRESSION: 1. Small colon polyps. 2. Diverticulosis. 3. Internal hemorrhoids. PLAN: The results of biopsy will be checked. I would recommend a repeat colonoscopy in 5 years for further screening. He was advised to resume his aspirin in 48 hours. MD RAMIRO De La O/LEATHA / [phone]
== END 2023-03-12 10:55 | disposition home or self-care (01) ==
PROVIDERS: PCP Physician Assistant; Visit Provider Internal Medicine
PROC: 0DJD8ZZ Inspection of Lower Intestinal Tract, Via Natural or Artificial Opening Endoscopic (ICD-10-PCS; CPT 45378; principal; 2023-03-12 08:40)
DX: Z12.11 Encounter for screening for malignant neoplasm of colon (principal); Z86.010 Personal history of colon polyps; D12.3 Benign neoplasm of transverse colon; D12.8 Benign neoplasm of rectum; K63.5 Polyp of colon; K57.30 Diverticulosis of large intestine without perforation or abscess without bleeding; K64.8 Other hemorrhoids; I10 Essential (primary) hypertension; E78.5 Hyperlipidemia, unspecified; J45.909 Unspecified asthma, uncomplicated; Z79.82 Long term (current) use of aspirin; Z98.890 Other specified postprocedural states; Z87.891 Personal history of nicotine dependence; Z79.899 Other long term (current) drug therapy
CPT/HCPCS: 45380; 88305; J2704

== ENCOUNTER 2023-03-30 11:27 | Outpatient (AMB) | payer MEDICARE, SELFPAY ==
--- NOTE | 2023-03-30 11:29 | MHC.OFFVIS ---
Intake Intake Visit Reasons: Unilateral primary osteoarthritis, left knee Intake Note: Iker is a 72 year old male who presents today for a follow up of his left knee osteoarthritis, last injection was done 12/21/22. Patient reports that this injection continues to be helpful. He does not feel that he needs a repeat injection at this point. He wears brace with increased activity which is helpful Allergies No Known Allergies Allergy (Verified 12/22/22 08:27) HPI Unilateral primary osteoarthritis, left knee HPI Details Iker is a 72 year old man who returns to discuss his left knee pain. He received a diagnostic steroid injection on 12/21/22, with good relief, and has found good support from wearing a knee brace. He denies nay pain today and says the injection continues to be helpful for him. He has a hx of left knee for a meniscus tear in ~1999. This was done at [facility]. He says his knee was doing well following surgery until his pain began. [facility] Medical History Wounds, multiple Asthma History of supraventricular tachycardia Migraines Osteoarthritis Carotid stenosis Elevated cholesterol HTN (hypertension) Tubular adenoma of colon Former smoker Surgical History H/O colonoscopy H/O left knee surgery (~1999) H/O carotid endarterectomy S/P wisdom tooth extraction Hx of shoulder surgery Family History Father Myocardial infarction Mother Hypertension Emphysema lung Myocardial infarction Substance use disorder Son No problems noted. Son No problems noted. Son No problems noted. Daughter No problems noted. Social History Housing: House Alcohol intake: current Alcohol intake frequency: 0-2 drinks per day Alcohol type: wine Patient Tobacco Use Status: Former Tobacco user Quit Date: 1999 e-Cigarette/Vaping Use: Never Used Second Hand Smoke Exposure: No service: No Current occupational status: unemployed and retired Current occupation: [employer] Cognitive needs: No Hearing needs: No Vision needs: Yes (Glasses) Review of Systems Const All systems reviewed & are unremarkable except as noted in HPI and below Physical Exam Const General: no acute distress, alert and awake Orientation/consciousness: patient oriented x3 HEENT Head: Yes normocephalic and Yes atraumatic Eyes EOM: EOMs intact bilaterally Resp Effort & Inspection: normal respiratory effort and able to speak in complete sentences Cardio Jugular venous distension: no JVD Skin General skin exam: turgor normal Rashes: no rashes Neuro General: patient oriented x3 Extrem Other: nl gait nl motion no ttp Psych Appearance: grossly normal Affect: normal affect Attitude: cooperative Assessment & Plan Assessment & Plan (1) Osteoarthritis of left knee: Code(s): M17.12 - Unilateral primary osteoarthritis, left knee Plan: Left knee OA Nothing to do as he is feeling well. May follow up as needed. Plan Prepared for Parish Marie MD by Cirilo Horowitz, medical underwriter, on 03/30/23 at 11:38 AM, EST. Coding Level of Care Code Est Pt Level 3 (68229) Diagnoses Osteoarthritis of left knee M17.12
== END 2023-03-30 11:49 | disposition home or self-care (01) ==
PROVIDERS: PCP Physician Assistant; Visit Provider Orthopaedic Surgery
DX: M17.12 Unilateral primary osteoarthritis, left knee (principal)
CPT/HCPCS: 99212

== ENCOUNTER → 2023-03-30 11:27 | Outpatient (BNVA) | payer MEDICARE, SELFPAY | PROVIDERS: PCP Physician Assistant; Visit Provider Orthopaedic Surgery | DX: M17.12 Unilateral primary osteoarthritis, left knee (principal) | CPT/HCPCS: 99212 ==

== ENCOUNTER 2023-05-21 06:59 | Outpatient (REF) | payer MEDICARE, SELFPAY ==
[2023-05-21 07:44] LABS: Alanine Aminotransferase 25 U/L (0-40); Albumin Level 3.9 g/dL (3.5-5.0); Alkaline Phosphatase 70 U/L (39-117); Aspartate Amino Transferase 24 U/L (5-37); Bilirubin Direct 0.2 mg/dL (0.0-0.5); Bilirubin Total 0.6 mg/dL (0.0-1.0); Cholesterol 178 mg/dL (<200); HDL Cholesterol 64 mg/dL (>40); LDL Cholesterol Calculated 82 mg/dL (<100); Total Protein 6.7 g/dL (6.5-8.0); Triglycerides 162 mg/dL (<150)
[2023-05-21 07:47] LABS: Alanine Aminotransferase 26 U/L (0-40); Alkaline Phosphatase 70 U/L (39-117); Anion Gap 13 (12-20); Aspartate Amino Transferase 25 U/L (5-37); Bilirubin Total 0.6 mg/dL (0.0-1.0); Blood Urea Nitrogen 17 mg/dL (9-16); Calcium 8.9 mg/dL (8.4-10.2); Carbon Dioxide 22 mmol/L (22-29); Chloride 110 mmol/L (96-108); Cholesterol 183 mg/dL (<200); Estimated Glomerular Filt Rate > 60; Glucose Fasting 79 mg/dL (60-99); HDL Cholesterol 64 mg/dL (>40); LDL Cholesterol Calculated 86 mg/dL (<100); Potassium 4.3 mmol/L (3.3-5.1); Sodium 141 mmol/L (135-145); Total Protein 6.8 g/dL (6.5-8.0); Triglycerides 165 mg/dL (<150)
[2023-05-21 08:04] LABS: Prostate Specific Antigen Scr 0.84 ng/mL (<0.05-4.0)
[2023-05-21 09:15] LABS: Microalbum/Creatinine Ratio Ur 37.8 ug/mg cr (<30)
== END 2023-05-21 07:00 | disposition home or self-care (01) ==
LOC: HO.LAB 06:59
PROVIDERS: Absent Provider Physician Assistant; PCP Physician Assistant; Visit Provider Internal Medicine
DX: I10 Essential (primary) hypertension (principal); E78.2 Mixed hyperlipidemia; Z12.5 Encounter for screening for malignant neoplasm of prostate
CPT/HCPCS: 36415; 80053; 80061; 80076; 82043; 82570; 84153

== ENCOUNTER 2023-05-23 08:23 | Outpatient (AMB) | payer MEDICARE, SELFPAY ==
[2023-05-23 08:25] VITALS: BP 144/88; PULSE 57; O2SAT 97; BMI 25.8
--- NOTE | 2023-05-23 08:25 | MHC.PC.OV ---
Vital Signs 05/23/23 08:25 Height 5 ft 6 in Weight 160 lb BMI 25.8 BP 144/88 H Blood Pressure Location Lt brachial Position Sitting Pulse 57 Pulse Source Pulse Oximeter Pulse Oximetry (%) 97 Oxygen Delivery Method Room Air Intake Visit Reasons: Annual Exam - see comments Intake Note: Patient here for a physical exam Brand Protection Manager Required: No Accompanied by: Self / Same As Patient Allergies No Known Allergies Allergy (Verified 05/23/23 08:45) Medication List - Last Reconciled 05/23/23 by Ehsan Payne PA-C albuterol sulfate 90 mcg/actuation 1 inh inhalation QID PRN 30 days aspirin (Adult Aspirin Regimen) 81 mg PO DAILY ipratropium bromide 2 sprays intranasal BID lisinopril 10 mg PO DAILY 90 days metoprolol succinate ER 25 mg PO DAILY rosuvastatin (Crestor) 20 mg PO DAILY topiramate 50 mg (2 x 25 mg) PO BID 90 days Tobacco use date assessed: 05/23/23 Fall risk assessment: No Falls in past year Last assessed Fall Risk: 05/23/23 Dental Screening Dental Screen Date: 05/23/23 Did you have a dental visit in the last 12 months?: Yes Did you have a dental problem in the last 6 months where you did not have access to dental care?: No Was dental information given to patient?: Patient has dentist HPI Annual Exam - see comments HPI Details Iker is a 72 y/o M here today for routine annual physical. Patient has a Pmhx of HLD, Migraines, HTN, carotid stenosis. ? 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 Second opinion with Dermatology diagnosed with erosive skin disorder the repeat biopsy. Was using clobetasol which really helped heal his skin.. ? .. ? HTN: Blood pressure elevated today in office. He believes he has an element of white coat hypertension. He reports at home having low blood pressure readings 90 to 100 systolic. He does report at these times feeling somewhat tired and fatigued. Will like to decrease his lisinopril dose to 10 mg. ? .. ? Carotid stenosis :? Is followed yearly by /Vascular.? Denies any further episodes of dizziness were syncope. Patient is a smoker has quit several years ago. REcent Carotid US -->There is severe atherosclerotic disease in the bilateral common carotid and internal carotid arteries, however by velocity criteria to disease corresponds to less than 50% stenosis. His statin potency has been increased to better manage his LDL. Now on Crestor 20 mg ? .. ? HLD: Patient on statin therapy and reporting no side effects. Most recent lipid panel showing acceptable LDL and total cholesterol. Has been making lifestyle modifications to his diet to reduce his cholesterol as well. Vaccine: UTD with COVID, ,UTD with Tdap and PCV, Considering Shingrex vaccine Colonoscopy:? Done in [address] Schmitt, polyp found tubular adenoma repeat 5 years- Laboratory Tests 05/08/22 05/21/23 05/21/23 07:06 07:06 07:10 Creatinine 1.44 H 1.02 Fasting Glucose 79 Cholesterol 178 LDL Cholesterol, C alc 82 PSA Screen 0.84 Urine Microalbumin 38.0 PFSH Medical History Wounds, multiple Asthma History of supraventricular tachycardia Migraines Osteoarthritis Carotid stenosis Elevated cholesterol HTN (hypertension) Tubular adenoma of colon Former smoker Surgical History (Updated 05/23/23 @ 08:35 by Ehsan Payne PA-C) H/O colonoscopy H/O left knee surgery (~1999) H/O carotid endarterectomy S/P wisdom tooth extraction Hx of shoulder surgery Family History Father Myocardial infarction Mother Hypertension Emphysema lung Myocardial infarction Substance use disorder Son No problems noted. Son No problems noted. Son No problems noted. Daughter No problems noted. 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 1. Little interest or pleasure in doing things: not at all 2. Feeling down, depressed, or hopeless: not at all 3. Trouble falling or staying asleep, or sleeping too much: not at all 4. Feeling tired or having little energy: not at all 5. Poor appetite or overeating: not at all 6. Feeling bad about yourself - or that you are a failure or have let yourself or your family down: not at all 7. Trouble concentrating on things, such as reading the newspaper or watching television: not at all 8. Moving or speaking so slowly that other people could have noticed. Or the opposite - being so fidgety or restless that you have been moving around a lot more than usual: not at all 9. Thoughts that you would be better off or of hurting yourself in some way: not at all Total score: 0 Depression Screening Interpretation: Negative Depression Screening Done: Yes 62824 - PHQ-9 Billing: Yes Source: Developed by Drs. Tim Power, Digan Ascencio, Dani Herrera and colleagues, with an educational dianelys from [employer]. Thrive Questionnaire Date Thrive assessed: 05/23/23 I am a: Patient What is your living situation today?: I have a steady place to live Within the past 12 months, did the food you bought not last and you didn't have the money to get more?: Never true Within the past 12 months, did you worry whether your food would run out before you got money to buy more?: Never true Do you have trouble paying for medicines?: No Do you have trouble getting transportation to medical appointments?: No Do you have trouble paying your heating and electricity bill?: No Do you have trouble taking care of your child, family member or friend?: No Do you have trouble with day-to-day activities such as bathing, preparing meals, shopping, managing finances, etc.?: No Are you currently unemployed and looking for a job?: No Are you interested in more education?: No Please select the resources that you would like help with: None Currently or been in a relationship where the following occur: no concerns reported THRIVE Score: 0 AUDIT C Alcohol Use Questionnaire (AUDIT-C) 1. How often do you have a drink containing alcohol?: 4 or more times a week 2. How many drinks containing alcohol do you have on a typical day when you are drinking?: 1 or 2 3. How often do you have six or more drinks on one occasion?: Never Total Score: 4 JEFF-7 AMB Questionnaire JEFF-7 Date JEFF - 7 assessed: 05/23/23 Feeling nervous, anxious, or on edge: 0 = Not at all Not being able to stop or control worryin = Not at all Worrying too much about different things: 0 = Not at all Trouble relaxin = Not at all Being so restless that it is hard to sit still: 0 = Not at all Becoming easily annoyed or irritable: 0 = Not at all Feeling afraid as if something awful might happen: 0 = Not at all Total JEFF-7 score (0-4 normal; 5-9 mild; 10-14 moderate; 15-21 severe): 0 Source: Developed by Drs. Tim Power, Digna Ascencio, Dani Herrera and colleagues, with an educational dianelys from [employer]. JEFF-7 Assessment Billing JEFF-7 Assessment Tool: JEFF-7 Assessment 61689 Review of Systems Const Denies body aches, Denies chills, Denies excessive sweating, Denies fatigue, Denies fever(s) and Denies headache(s) Eyes Denies blurry vision ENT Denies dysphagia, Denies vertigo, Denies dizziness, Denies headache(s), Denies hearing loss and Denies tinnitus Card Denies chest pain, Denies chest pain with activity, Denies syncope, Denies irregular heart rhythm and Denies dyspnea Resp Denies chest congestion, Denies cough, Denies hemoptysis, Denies dyspnea and Denies wheezing GI Denies abdominal pain, Denies melena, Denies hematochezia, Denies coffee ground emesis, Denies dysphagia, Denies diarrhea, Denies nausea and Denies vomiting Denies difficulty urinating, Denies dysuria, Denies urinary frequency, Denies urinary hesitancy and Denies urinary urgency Musc Denies arthralgias, Denies limited range of motion, Denies muscle cramps and Denies muscle weakness Skin/Breast Denies rash and Denies skin ulcer Neuro Denies Abnormal speech present, Denies confusion, Denies vertigo, Denies dizziness, Denies syncope, Denies headache(s), Denies memory loss and Denies seizure-like activity Psych Denies anxiety, Denies confusion, Denies depression, Denies memory loss, Denies panic attacks and Denies paranoia Endo Denies excessive sweating, Denies fatigue, Denies flushing, Denies polydipsia and Denies polyuria Aller/Immun Denies wheezing Physical exam (Primary Care) Vital Signs: Last Vital Signs Pulse 57 05/23/23 08:25 BP 144/88 H 05/23/23 08:25 Pulse Ox 97 05/23/23 08:25 Oxygen Delivery Method Room Air 05/23/23 08:25 BMI result Body Mass Index 25.8 Tobacco/Smoking Status: Tobacco use Status Tobacco use date assessed 05/23/23 05/23/23 08:29 Patient Tobacco Use Status Former Tobacco user 05/23/23 08:36 e-Cigarette/Vaping Use Never Used 05/23/23 08:36 PHQ-9: PHQ-9 Score PHQ-9: Total score 0 05/23/23 13:38 Depression Screening Interpretation: Negative Thrive Assessment: Date of Thrive Assessment Date Thrive assessed 05/23/23 05/23/23 08:29 Currently or been in a relationship where the following occur: no concerns reported Const General: cooperative, comfortable, no acute distress, alert and awake; No confusion Orientation/consciousness: oriented to person, oriented to place, patient oriented x3 and No confusion [facility] Head: Yes normocephalic Head images: 1. WELL-HEALED SKIN , PREVIOUS ulcerative scar is noted Ears: external ears normal and TM's normal bilaterally Face and sinus: No sinus tenderness Mouth: Normal oral and palatal mucosa present and tongue normal Teeth and gingiva: dentition normal and gingiva normal Throat: Yes posterior oropharynx normal, Yes tonsils normal and Yes uvula midline Eyes Conjunctivae: conjunctivae normal Sclerae: sclerae normal Pupils: Equal, round and reactive pupils present EOM: EOMs intact bilaterally Direct Ophthalmoscopy: No no photophobia Neck Neck: Yes no lymphadenopathy, No tender and Yes no JVD Thyroid: Thyroid normal Carotids: no bruits Chest Chest palpation & inspection: no tenderness Resp Effort & Inspection: normal respiratory effort, no audible wheezes, not labored and no stridor Auscultation: no crackles, no rales, no rhonchi and no wheezes Cardio Jugular venous distension: no JVD Rate: regular rate, not bradycardic and not tachycardic Rhythm: regular rhythm Bruits: no carotid bruits Peripheral pulses: Peripheral pulses 2+ throughout GI Inspection: Yes normal to inspection, No abdominal wall ecchymosis and No visible herniation Palpation (GI): Soft to palpation, nontender, no guarding, not rigid and No hepatosplenomegaly present Auscultation: normoactive bowel sounds General: Yes no CVA tenderness Back/Spine/Pelvis Back: no CVA tenderness and No back tenderness Cervical Spine: cervical ROM normal Thoracic/Lumbar Spine: thoracic and lumbar spine normal to inspection, straight leg raise negative bilaterally, No thoraco-lumbar ROM limited and No lumbar spinal tenderness Skin Lesions: no lesions Rashes: no rashes Wounds: no wounds Neuro General: oriented to person, oriented to place, patient oriented x3, CN's II-XI intact bilaterally and No confusion Cranial nerves: Yes Equal, round and reactive pupils present and Yes Normal accommodation reflex present Cognition (Neuro): normal cognition Speech: No Abnormal speech present Gait exam (Neuro): Normal gait present Motor exam (neuro): 5/5 motor strength present throughout Extrem Right upper extremity: full ROM; no cyanosis Left upper extremity: full ROM; no cyanosis Right lower extremity: no edema Left lower extremity: no edema Psych Appearance: grossly normal Mental Status: mental status grossly normal Affect: normal affect Attitude: cooperative Thought process: Normal thought process present Assessment and Plan Assessment & Plan (1) Annual physical exam: Code(s): Z00.00 - Encounter for general adult medical examination without abnormal findings (2) HTN (hypertension): Code(s): I10 - Essential (primary) hypertension Qualifiers: Hypertension type: primary hypertension Qualified Code(s): I10 - Essential (primary) hypertension Plan: Patient's blood pressure slightly elevated today in office. Does have an element of white coat hypertension. He Reports having low blood pressure reading ( 90- 100 systolic) at times does asymptomatic during those times. He is interested in reducing his lisinopril dose to reduce episodes of hypo tension He believes metoprolol is managing his blood pressure for the most part. Goal blood pressures remain below 140/90 (3) Carotid stenosis: Comment: 2019 - bilateral carotid endarterectomy by Dr. Malloy Code(s): I65.29 - Occlusion and stenosis of unspecified carotid artery Qualifiers: Laterality: bilateral Qualified Code(s): I65.23 - Occlusion and stenosis of bilateral carotid arteries Plan: Patient continues to follow vascular. He is status post endarterectomy. His statin was increased in potency (now on Crestor 20 mg). Most recent ultrasound showing severe right carotid stenosis though hemodynamically stable. Will continue follow-up with vascular surgeon. Goal LDL to be optimally below 70 (4) HLD (hyperlipidemia): Code(s): E78.5 - Hyperlipidemia, unspecified Qualifiers: Hyperlipidemia type: mixed hyperlipidemia Qualified Code(s): E78.2 - Mixed hyperlipidemia Plan: Patient's most recent lipid panel showing good total cholesterol and LDL. Triglycerides are well managed. HAs been changed to Crestor 20mg by his livestock showman to better manage his LDL. Goal LDL to be optimally below 70. . He continues to work on lifestyle modifications on reducing high cholesterol/high triglyceride foods. (5) Scalp wound: Code(s): S01.00XA - Unspecified open wound of scalp, initial encounter Qualifiers: Encounter type: subsequent encounter Open wound type: unspecified Qualified Code(s): S01.00XD - Unspecified open wound of scalp, subsequent encounter Plan: Has got a 2nd opinion from dermatology and [place]. Repeat biopsy showed an erosive skin disease. He was started on clobetasol topical treatment which significantly helped his scalp ulcer. 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 Was followed by [place] wound management.. Was treated with topical steroid which significantly helped his skin disorder. Continues following up with Dermatology. Orders: Orders Comprehensive [place]. Panel Fast 6 Months I10 - Essential (primary) hypertension Lipid Panel 6 Months E78.2 - Mixed hyperlipidemia Complete Blood Count no Diff 6 Months E78.2 - Mixed hyperlipidemia Microalbumin, Random (w Creat) 6 Months I10 - Essential (primary) hypertension Medications: New lisinopril 10 mg PO DAILY 90 tabs 1RF 90 days I10 - Essential (primary) hypertension Discontinued lisinopril Discontinued Reason: Doctor's Order 30 mg PO DAILY 90 tabs 2RF I10 - Essential (primary) hypertension Patient Instructions: Goal: Monitor blood pressure with goal blood pressure be below 140/90 and above 100/60 Barriers: Being compliant with medication Coding Level of Care Code Est Pt Prev Care >65y(50739) Diagnoses Annual physical exam Z00.00 Primary hypertension I10 Hypertension type: primary hypertension Bilateral carotid artery stenosis I65.23 Laterality: bilateral Mixed hyperlipidemia E78.2 Hyperlipidemia type: mixed hyperlipidemia Open wound of scalp, unspecified open wound type, subsequent encounter S01.00XD Encounter type: subsequent encounter Open wound type: unspecified Non-pressure chronic ulcer of skin of other sites with unspecified severity L98.499 Additional Codes JEFF-7 Assessment Billing - JEFF-7 Assessment Tool: JEFF-7 Assessment [id number] ([id number])
== END 2023-05-23 09:03 | disposition home or self-care (01) ==
PROVIDERS: Visit Provider Physician Assistant
DX: Z00.00 Encounter for general adult medical examination without abnormal findings (principal); I10 Essential (primary) hypertension; L98.499 Non-pressure chronic ulcer of skin of other sites with unspecified severity; I65.23 Occlusion and stenosis of bilateral carotid arteries; E78.2 Mixed hyperlipidemia; S01.00XD Unspecified open wound of scalp, subsequent encounter
CPT/HCPCS: 99397

== ENCOUNTER 2023-06-08 15:27 | Outpatient (REF) | payer MEDICARE, SELFPAY ==
--- NOTE | ~2023-06-08 | US_ITS ---
EXAMINATION: US EXTRACRANIAL CAROTID DUPLEX, BILATERAL CLINICAL INFORMATION: Occlusion and stenosis of bilateral carotid arteries COMPARISON: Carotid duplex 05/05/2022 TECHNIQUE: Real-time ultrasound and Doppler techniques (integrating B-mode 2-D vascular images, Doppler spectral analysis and color-flow Doppler imaging) were utilized to interrogate the extracranial carotid arteries, the vertebral arteries and proximal subclavian arteries bilaterally. The degree of stenosis is determined by criteria similar to NASCET. FINDINGS: Right Side: 1. There is moderate atherosclerotic plaque seen in the bifurcation/proximal ICA region. 2. The common carotid artery PSV proximally is 60 cm/s and distally 51 cm/s. 3. The proximal internal carotid artery velocities are 114 cm/s systolic and 27 cm/s diastolic. Of note, there is a moderate stenosis at the bulb area of the endarterectomy with peak systolic velocity of 260 cm/sec. Bovine stent graft placed after endarterectomy partially visualized. 4. The proximal external carotid artery PSV is 66 cm/s. 5. The vertebral artery shows antegrade flow. 6. The subclavian artery waveforms are normal. Left Side: 1. There is moderate atherosclerotic plaque seen in the bifurcation/proximal ICA region. 2. The common carotid artery PSV proximally is 125 cm/s and distally 156 cm/s. 3. The proximal internal carotid artery velocities are 104 cm/s systolic and 26 cm/s diastolic. Of note, there is a moderate stenosis at the bulb area of the endarterectomy with peak systolic velocity 272 cm/sec. Bovine stent graft placed after endarterectomy partially visualized. 4. The proximal external carotid artery PSV is 109 cm/s. 5. The vertebral artery shows bidirectional flow. 6. The subclavian artery waveforms are normal. US/US carotid duplex BI IMPRESSION: 1. RIGHT: Minimal, non-hemodynamically significant stenosis of the proximal right internal carotid artery corresponding to a 0-49% stenosis by velocity criteria. 2. LEFT: Minimal, non-hemodynamically significant stenosis of the proximal left internal carotid artery corresponding to a 0-49% stenosis by velocity criteria. 3. Moderate stenosis at the bulb and bilateral endarterectomies. Bovine stent grafts partially visualized bilaterally. 4. There is no change in the category severity of disease when compared to the previous study dated 05/05/2022.
== END 2023-06-08 15:28 | disposition home or self-care (01) ==
LOC: HO.US 15:27
PROVIDERS: PCP Physician Assistant; Visit Provider Surgery Vascular Surgery
DX: I65.23 Occlusion and stenosis of bilateral carotid arteries (principal)
CPT/HCPCS: 93880

== ENCOUNTER 2023-07-17 09:57 | Outpatient (AMB) | payer MEDICARE, SELFPAY ==
[2023-07-17 09:58] VITALS: BP 156/80; BMI 25.8
--- NOTE | 2023-07-17 09:58 | A.OFFVIS_ITS ---
Vital Signs 07/17/23 09:58 07/17/23 10:15 Height 5 ft 6 in Weight 160 lb BMI 25.8 BP 156/80 H 120/76 Blood Pressure Location Rt brachial Lt brachial Position Sitting Sitting Intake Visit Reasons: 1 year carotid US follow up Intake Note: 1 yr follow up carotid US 06/08/23, NO complaints, goes to the gym three times a week. Hx of bilateral LE CEA 2019 Accompanied by: Self / Same As Patient Allergies No Known Allergies Allergy (Verified 07/17/23 10:12) HPI HPI 1 year carotid US follow up: Details: Very pleasant 72-year-old gentleman presents for follow-up regarding carotid disease. It has been nearly 5 years since he has undergone bilateral carotid endarterectomy. He is retired but remains quite active. He works at the [employer]. 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 In addition he golfs and exercises on a regular basis. He is on an aspirin. He is doing extremely well. Of note he did quit smoking at the age of 50. He now presents for follow-up. PENDING SALE TO [facility] Medical History Wounds, multiple Asthma History of supraventricular tachycardia Migraines Osteoarthritis Carotid stenosis Elevated cholesterol HTN (hypertension) Tubular adenoma of colon Former smoker Surgical History H/O colonoscopy H/O left knee surgery (~1999) H/O carotid endarterectomy S/P wisdom tooth extraction Hx of shoulder surgery Family History Father Myocardial infarction Mother Hypertension Emphysema lung Myocardial infarction Substance use disorder Son No problems noted. Son No problems noted. Son No problems noted. Daughter No problems noted. 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 Cognitive needs: No Hearing needs: No Vision needs: Yes (Glasses) Review of Systems Const All systems reviewed & are unremarkable except as noted in HPI and below Reports no additional complaints ENT Reports Normal hearing present Card Denies chest pain, Denies chest pain at rest, Denies chest pain with activity and Denies pedal edema Resp Denies cough GI Denies abdominal pain Musc Denies abnormal gait, Denies muscle cramps and Denies radiating pain into limb Skin/Breast Denies skin ulcer and Denies wounds Neuro Reports Normal hearing present and Denies abnormal gait Psych Reports no additional complaints Physical Exam Vital Signs: Last Vital Signs BP 120/76 07/17/23 10:15 BMI result Body Mass Index 25.8 Const General: cooperative, healthy appearing and comfortable Orientation/consciousness: oriented to person, oriented to place and oriented to time HEENT Head: Yes normal to inspection Neck Neck: Yes normal visual inspection Carotids: no bruits Chest Chest palpation & inspection: normal inspection of the chest Resp Effort & Inspection: normal respiratory effort and able to speak in complete sentences Auscultation: clear to auscultation bilaterally, no crackles, no rales, no rhonchi and no wheezes Cardio Rate: regular rate Rhythm: regular rhythm Heart sounds: S1 normal heart sound present and S2 normal heart sound present Bruits: no carotid bruits Peripheral pulses: Peripheral pulses 2+ throughout GI Inspection: Yes normal to inspection Skin Wounds: no wounds Hair: normal Neuro General: oriented to person, oriented to place and oriented to time Cranial nerves: Yes CN's II-XII intact bilaterally and Yes Normal hearing present Cognition (Neuro): normal cognition Motor exam (neuro): 5/5 motor strength present throughout Extrem Other: venous exam: No significant superficial varicosities or spider telangiectasias, minimal edema General: No clubbing, No cyanosis and No edema Psych Appearance: grossly normal Mental Status: mental status grossly normal Speech and movement: Normal speech and movement present Results Reviewed Results Reviewed: Testing dated 06/08/2023 demonstrates bilateral 0-49% stenosis with a peak systolic on the right of 114 and on the left of 104. Written report and images were reviewed. Assessment & Plan Assessment & Plan (1) Carotid stenosis: Comment: 2019 - bilateral carotid endarterectomy by Dr. Malloy Code(s): I65.29 - Occlusion and stenosis of unspecified carotid artery Category: Medical Qualifiers: Laterality: bilateral Qualified Code(s): I65.23 - Occlusion and stenosis of bilateral carotid arteries Plan: In short patient has asymptomatic carotid disease. We have reviewed signs and symptoms of a stroke. We also discussed risk factor modification inclusive a healthy diet low in cholesterol. The patient will follow up with us with surveillance ultrasound of the carotids 1 year. Should there be any changes or signs or symptoms of a stroke we will be happy to see them back sooner. Thank you for allowing us to participate in this patient's care. If there are any questions or concerns please do not hesitate to contact us. Orders: Orders US carotid duplex BI 1 Year I65.23 - Occlusion and stenosis of bilateral carotid arteries Coding Level of Care Code Est Pt Level 4 (41810) Diagnoses Bilateral carotid artery stenosis I65.23 Laterality: bilateral
[2023-07-17 10:15] VITALS: BP 120/76
== END 2023-07-17 10:18 | disposition home or self-care (01) ==
PROVIDERS: PCP Physician Assistant; Visit Provider Surgery Vascular Surgery
DX: I65.23 Occlusion and stenosis of bilateral carotid arteries (principal)
CPT/HCPCS: 99213

== ENCOUNTER → 2023-07-17 09:57 | Outpatient (BNVA) | payer MEDICARE, SELFPAY | PROVIDERS: PCP Physician Assistant; Visit Provider Surgery Vascular Surgery | DX: I65.23 Occlusion and stenosis of bilateral carotid arteries (principal) | CPT/HCPCS: 99212 ==

== ENCOUNTER 2023-09-10 14:26 | Outpatient (AMB) | payer MEDICARE, SELFPAY ==
[2023-09-10 15:24] VITALS: BP 122/74; PULSE 68; TEMP 36.9; O2SAT 99; BMI 26.6
--- NOTE | 2023-09-10 15:24 | AM.OFFWIN_ITS ---
Intake Vital Signs 09/10/23 15:24 Height 5 ft 6 in Weight 165 lb BMI 26.6 BP 122/74 Blood Pressure Location Rt brachial Position Sitting Pulse 68 Pulse Source Pulse Oximeter Temp 98.5 F Temp Source Oral Pulse Oximetry (%) 99 Oxygen Delivery Method Room Air Intake Visit Reasons: EP Blocked Ears Intake Note: PT c/o blocked ears Patient Tobacco Use Status: Former Tobacco user Allergies No Known Allergies Allergy (Verified 09/10/23 15:24) Do you need a note to return to daycare/school/sports/work: No HPI EP Blocked Ears HPI Details This note is constructed using voice recognition software. While every effort has been made to ensure accuracy, senior electronics engineer errors may have been included. The patient is a 72 year old male who presents to the clinic today with bilateral ear blockage for the past several days. He notes that he does have a history of cerumen impaction, which was last over a decade ago, but none since. He was concerned that he could have cerumen blockage. He does have some recent sneezing, and some ?allergy symptoms , that he reports are not so bothersome to him. He denies fever, chills, cough, shortness of breath, but is having some nasal congestion. He takes [id number] generic Claritin daily. [facility] Medical History Wounds, multiple Asthma History of supraventricular tachycardia Migraines Osteoarthritis Carotid stenosis Elevated cholesterol HTN (hypertension) Tubular adenoma of colon Former smoker Surgical History H/O colonoscopy H/O left knee surgery (~1999) H/O carotid endarterectomy S/P wisdom tooth extraction Hx of shoulder surgery Family History Father Myocardial infarction Mother Hypertension Emphysema lung Myocardial infarction Substance use disorder Son No problems noted. Son No problems noted. Son No problems noted. Daughter No problems noted. 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 Cognitive needs: No Hearing needs: No Vision needs: Yes (Glasses) Review of Systems Const All systems reviewed & are unremarkable except as noted in HPI and below Physical Exam Vital Signs: Last Vital Signs Temp 98.5 F 09/10/23 15:24 Pulse 68 09/10/23 15:24 BP 122/74 09/10/23 15:24 Pulse Ox 99 09/10/23 15:24 Oxygen Delivery Method Room Air 09/10/23 15:24 BMI result Body Mass Index 26.6 Const General: cooperative, healthy appearing, comfortable and no acute distress Orientation/consciousness: patient oriented x3 Limitations: no limitations HEENT Head: Yes normal to inspection Ears: hearing grossly normal bilaterally, external ears normal and TM abnormal retracted bilateral General nose exam: Normal external nose present, Normal nares present and No nasal discharge present Face and sinus: Yes normal facial exam and Yes sinuses nontender Mouth: Normal oral and palatal mucosa present and moist mucous membranes Throat: Yes posterior oropharynx normal, Yes tonsils normal, Yes uvula midline, Yes postnasal drainage and Yes cobblestoning Eyes General: appearance normal, both eyes and all related structures Neck Neck: Yes normal visual inspection Resp Effort & Inspection: normal respiratory effort, able to speak in complete sentences, Actively coughing, no respiratory distress, not tachypneic, no tripod positioning and no use of accessory muscles Auscultation: clear to auscultation bilaterally Cardio Jugular venous distension: no JVD Rate: regular rate Rhythm: regular rhythm Heart sounds: S1 normal heart sound present, S2 normal heart sound present, no click, no gallops, no murmurs and no rubs Skin General skin exam: no rashes or lesions noted, elasticity normal and turgor normal Neuro General: patient oriented x3 Extrem General: Yes normal to inspection and Yes no clubbing, cyanosis or edema Assessment & Plan Assessment & Plan (1) Allergic rhinitis: Code(s): J30.9 - Allergic rhinitis, unspecified Qualifiers: Allergic rhinitis trigger: unspecified Allergic rhinitis seasonality: unspecified Qualified Code(s): J30.9 - Allergic rhinitis, unspecified Plan: Physical examination reassuring today for allergy contribution to symptoms. Advised trial Flonase nasal spray, prescription sent to requested pharmacy as patient feels that this may be covered by his insurance and his FSA card. Advised ongoing use of [id number] second-generation antihistamine. Advised follow up with worsening or failure to resolve. Plan See above for full details and plan. Medications: New fluticasone propionate 50 mcg/actuation administer into each nostril 1 spray intranasal BID PRN 16 grams 0RF allergy symptoms Coding Level of Care Code Est Pt Level 3 (54442) Diagnoses Allergic rhinitis, unspecified seasonality, unspecified trigger J30.9 Allergic rhinitis trigger: unspecified Allergic rhinitis seasonality: unspecified
== END 2023-09-10 16:03 | disposition home or self-care (01) ==
PROVIDERS: PCP Physician Assistant; Visit Provider Registered Nurse
DX: J30.9 Allergic rhinitis, unspecified (principal)
CPT/HCPCS: 99213

== ENCOUNTER 2023-11-20 07:08 | Outpatient (REF) | payer MEDICARE, SELFPAY ==
[2023-11-20 07:50] LABS: Hematocrit 45.1 % (42.0-52.0); Hemoglobin 14.3 g/dl (14.0-18.0); Mean Corpuscular HGB Conc 31.7 g/dl (31.0-36.0); Mean Corpuscular Hemoglobin 28.3 pg (27.0-33.0); Mean Corpuscular Volume 89.3 fL (80.0-98.0); Mean Platelet Volume 9.6 fL (9.4-12.4); Platelet Count 182 X10*3/uL (160-400); Red Blood Count 5.05 X10*6/uL (4.60-5.80); Red Cell Distribution Width 14.2 % (11.0-16.0); White Blood Count 5.2 X10*3/uL (4.8-10.8)
[2023-11-20 08:29] LABS: Alanine Aminotransferase 19 U/L (0-40); Albumin Level 3.9 g/dL (3.5-5.0); Alkaline Phosphatase 79 U/L (39-117); Anion Gap 10 (12-20); Aspartate Amino Transferase 20 U/L (5-37); Bilirubin Total 0.5 mg/dL (0.0-1.0); Blood Urea Nitrogen 14 mg/dL (9-16); Carbon Dioxide 24 mmol/L (22-29); Chloride 113 mmol/L (96-108); Cholesterol 159 mg/dL (<200); Estimated Glomerular Filt Rate 59; Glucose Fasting 89 mg/dL (60-99); HDL Cholesterol 34 mg/dL (>40); LDL Cholesterol Calculated 74 mg/dL (<100); Potassium 4.1 mmol/L (3.3-5.1); Sodium 143 mmol/L (135-145); Total Protein 6.4 g/dL (6.5-8.0); Triglycerides 256 mg/dL (<150)
[2023-11-20 08:36] LABS: Microalbum/Creatinine Ratio Ur 29.6 ug/mg cr (<30)
== END 2023-11-20 07:09 | disposition home or self-care (01) ==
LOC: HO.LAB 07:08
PROVIDERS: PCP Physician Assistant; Visit Provider Physician Assistant
DX: E78.2 Mixed hyperlipidemia (principal); I10 Essential (primary) hypertension
CPT/HCPCS: 36415; 80053; 80061; 82043; 82570; 85027

== ENCOUNTER 2023-11-22 08:26 | Outpatient (AMB) | payer MEDICARE, SELFPAY ==
[2023-11-22 08:52] VITALS: BP 122/80; PULSE 62; O2SAT 96; BMI 27.0
--- NOTE | 2023-11-22 08:52 | A.OFFPC_ITS ---
Vital Signs 11/22/23 08:52 Height 5 ft 6 in Weight 167 lb BMI 27.0 BP 122/80 Blood Pressure Location Lt brachial Position Sitting Pulse 62 Pulse Source Pulse Oximeter Pulse Oximetry (%) 96 Oxygen Delivery Method Room Air Intake Visit Reasons: fu HTN/ Carotid stenosis Content Publisher Required: No Accompanied by: Self / Same As Patient Allergies No Known Allergies Allergy (Verified 11/22/23 08:57) Medication List - Last Reconciled 11/22/23 by Ehsan Payne PA-C albuterol sulfate 90 mcg/actuation 1 inh inhalation QID PRN 30 days aspirin (Adult Aspirin Regimen) 81 mg PO DAILY fluticasone propionate 50 mcg/actuation 1 spray intranasal BID PRN ipratropium bromide 2 sprays intranasal BID lisinopril 10 mg PO DAILY 90 days metoprolol succinate ER 25 mg PO DAILY rosuvastatin (Crestor) 20 mg PO DAILY topiramate 50 mg (2 x 25 mg) PO BID 90 days Tobacco use date assessed: 05/23/23 Fall risk assessment: No Falls in past year Last assessed Fall Risk: 11/22/23 Dental Screening Dental Screen Date: 11/22/23 Did you have a dental visit in the last 12 months?: Yes Did you have a dental problem in the last 6 months where you did not have access to dental care?: No Was dental information given to patient?: Patient has dentist HPI fu HTN/ Carotid stenosis HPI Details Iker is a 72 y/o M here today for a follow-up visit. Patient has a Pmhx of HLD, Migraines, HTN, carotid stenosis. ? Scalp ulceration: Has resolved, does have clobetasol available to for any flare-ups.. ? .. ? HTN: Patient's blood pressure acceptable today in office. He does use m etoprolol consistently, only use his lisinopril on as needed basis.. He reports at home having low blood pressure readings 90 to 100 systolic. He does report at these times feeling somewhat tired and fatigued. ? .. ? Carotid stenosis :? Is followed yearly by /Vascular.? Denies any further episodes of dizziness were syncope. Patient is a smoker has quit several years ago. Recent Carotid US -->There is severe atherosclerotic disease in the bilateral common carotid and internal carotid arteries, however by velocity criteria to disease corresponds to less than 50% stenosis. Patient continues aspirin and statin therapy. Most recent lipid panel showing excellent control of his total cholesterol and LDL ? .. ? HLD: Patient on statin therapy and reporting no side effects. Most recent lipid panel showing acceptable LDL and total cholesterol. Has been making lifestyle modifications to his diet to reduce his cholesterol as well. Laboratory Tests 05/21/23 11/20/23 11/20/23 07:10 07:23 07:24 RBC 5.05 Creatinine 1.21 Triglycerides 162 H 256 H LDL Cholesterol, C alc 74 Urine Microalbumin 24.0 PFSH Medical History Non-pressure chronic ulcer of skin of other sites with unspecified severity Wounds, multiple Asthma History of supraventricular tachycardia Migraines Osteoarthritis Carotid stenosis Elevated cholesterol HTN (hypertension) Tubular adenoma of colon Former smoker Surgical History H/O colonoscopy H/O left knee surgery (~1999) H/O carotid endarterectomy S/P wisdom tooth extraction Hx of shoulder surgery Family History Father Myocardial infarction Mother Hypertension Emphysema lung Myocardial infarction Substance use disorder Son No problems noted. Son No problems noted. Son No problems noted. Daughter No problems noted. 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 How many drinks containing alcohol do you have on a typical day when you are drinking?: 1 or 2 3. How often do you have six or more drinks on one occasion?: Never Total Score: 0 JEFF-7 AMB Questionnaire JEFF-7 Date JEFF - 7 assessed: 05/23/23 Source: Developed by Drs. Tim Power, Digna Ascencio, Dani Herrera and colleagues, with an educational dianelys from [employer]. Review of Systems Const Denies headache(s) Eyes Denies loss of vision ENT Denies vertigo, Denies dizziness, Denies headache(s) and Denies sore throat Card Denies chest pain, Denies leg edema and Denies lightheadedness Resp Denies cough, Denies hemoptysis and Denies wheezing GI Denies abdominal pain, Denies melena, Denies constipation, Denies diarrhea and Denies vomiting Denies dysuria, Denies urinary frequency and Denies urinary urgency Musc Denies arthralgias, Denies joint swelling, Denies numbness and Denies tingling Neuro Denies Abnormal speech present, Denies behavioral changes, Denies vertigo, Denies dizziness, Denies headache(s), Denies loss of vision, Denies memory loss, Denies numbness and Denies tingling Psych Denies anxiety, Denies behavioral changes, Denies depression, Denies memory loss and Denies panic attacks Ronal/Lymph Denies easy bleeding and Denies easy bruising Aller/Immun Denies wheezing Physical exam (Primary Care) Vital Signs: Last Vital Signs Pulse 62 11/22/23 08:52 BP 122/80 11/22/23 08:52 Pulse Ox 96 11/22/23 08:52 Oxygen Delivery Method Room Air 11/22/23 08:52 BMI result Body Mass Index 27.0 Tobacco/Smoking Status: Tobacco use Status Tobacco use date assessed 05/23/23 11/22/23 08:55 Patient Tobacco Use Status Former Tobacco user 11/22/23 08:55 e-Cigarette/Vaping Use Never Used 11/22/23 08:55 Thrive Assessment: Date of Thrive Assessment Date Thrive assessed 05/23/23 11/22/23 08:55 Const General: healthy appearing, no acute distress, alert and awake Nutritional Appearance: well nourished Orientation/consciousness: oriented to person, oriented to place and oriented to time HENMT Ears: TM's normal bilaterally General nose exam: Normal nasal mucous membranes and turbinates present Eyes Conjunctivae: conjunctivae normal Sclerae: sclerae normal Pupils: Equal, round and reactive pupils present Neck Neck: Yes no lymphadenopathy and Yes no JVD Thyroid: Thyroid normal Carotids: no bruits Resp Effort & Inspection: normal respiratory effort and not tachypneic Auscultation: no crackles, no rales, no rhonchi and no wheezes Cardio Rate: regular rate Rhythm: regular rhythm Heart sounds: no murmurs and normal S1 and S2 GI Palpation (GI): Soft to palpation, nontender, no hepatomegaly and no splenomegaly Auscultation: normal bowel sounds Skin General skin exam: no rashes or lesions noted and dry skin Neuro General: oriented to person, oriented to place and oriented to time Cranial nerves: Yes Equal, round and reactive pupils present Speech: No Abnormal speech present Gait exam (Neuro): Normal gait present Motor exam (neuro): no tremor noted Extrem Right upper extremity: full ROM Left upper extremity: full ROM Right lower extremity: full ROM; no edema Left lower extremity: full ROM; no edema Psych Mental Status: mental status grossly normal Speech and movement: Normal speech and movement present Affect: normal affect Attitude: cooperative Thought process: Normal thought process present Office Procedures Flu Questionnaire Does the patient have a severe egg allergy?: No Does the patient have severe life threatening allergies?: No Does the patient have a fever or illness today?: No Immunizations Fluarix Triv [id number] (PF) 45 mcg (15 mcg x 3)/0.5 mL IM syringe Performing Provider: Ehsan Payne PA-C [facility] Administered by: AUREA Serrano on 11/22/23 09:11 Dose Route Admin Location Dispensed Lot Number Expiration Date [facility] [place] Lead Technical Writer 0.5 mL IM Left Deltoid 0.5 mL [id number] 08/04/24 [id number] [employer] VIS Given Date VIS Provided VIS Publication Date 11/22/23 Single Vaccine 20 Eligibility Eligibility Date Funding Source Not [facility] Eligible 11/22/23 Private Coding Level of Care Code Est Pt Level 4 (75673) Diagnoses Primary hypertension I10 Hypertension type: primary hypertension Mixed hyperlipidemia E78.2 Hyperlipidemia type: mixed hyperlipidemia Bilateral carotid artery stenosis I65.23 Laterality: bilateral Hypertriglyceridemia E78.1 Assessment & Plan Assessment & Plan (1) HTN (hypertension): Code(s): I10 - Essential (primary) hypertension Category: Medical Qualifiers: Hypertension type: primary hypertension Qualified Code(s): I10 - Essential (primary) hypertension Plan: Patient's blood pressure under excellent control. He reports he consistently uses his metoprolol though only has to use lisinopril from time to time. Most recent microalbumin has improved. Goal blood pressure to remain below 140/90 (2) HLD (hyperlipidemia): Code(s): E78.5 - Hyperlipidemia, unspecified Category: Medical Qualifiers: Hyperlipidemia type: mixed hyperlipidemia Qualified Code(s): E78.2 - Mixed hyperlipidemia Plan: Patient's most recent lipid panel showing excellent control of his total cholesterol and LDL. He continues on statin therapy without any particular side effects. His triglycerides are still borderline high and will work on dietary modifications. (3) Carotid stenosis: Comment: 2019 - bilateral carotid endarterectomy by Dr. Malloy Code(s): I65.29 - Occlusion and stenosis of unspecified carotid artery Category: Medical Qualifiers: Laterality: bilateral Qualified Code(s): I65.23 - Occlusion and stenosis of bilateral carotid arteries Plan: Patient continues to follow vascular surgeon here in [place]. He does get regular carotid ultrasounds which has been stable. He otherwise denies any further symptoms related to his carotid stenosis.. (4) Hypertriglyceridemia: Code(s): E78.1 - Pure hyperglyceridemia Category: Medical Plan: As above patient's triglycerides are borderline high and will work on lifestyle and dietary modifications to reduce his triglycerides. Orders: Orders Lipid Panel 6 Months E78.2 - Mixed hyperlipidemia Microalbumin, Random (w Creat) 6 Months I10 - Essential (primary) hypertension Prostate Specific Antigen Scr 6 Months I10 - Essential (primary) hypertension, Z12.5 - Encounter for screening for malignant neoplasm of prostate Influenza [id number] Immunization Today Z23 - Encounter for immunization Comprehensive [place]. Panel Fast 6 Months I10 - Essential (primary) hypertension Complete Blood Count no Diff 6 Months I10 - Essential (primary) hypertension Medications: New Fluarix Triv [id number] (PF) (flu vacc [id number] 6mos up(PF)) 0.5 mL IM ONCE 0.5 mL 0RF NS Z23 - Encounter for immunization Patient Instructions: Goal: Blood pressure to be below 140/90, LDL to optimally below 70 Barriers: Adherence to physical activity and healthy eating habits
== END 2023-11-22 09:12 | disposition home or self-care (01) ==
PROVIDERS: PCP Physician Assistant; Visit Provider Physician Assistant
DX: I10 Essential (primary) hypertension (principal); E78.2 Mixed hyperlipidemia; I65.23 Occlusion and stenosis of bilateral carotid arteries; E78.1 Pure hyperglyceridemia; Z23 Encounter for immunization

== ENCOUNTER → 2023-11-22 08:26 | Outpatient (BNVA) | payer MEDICARE, SELFPAY | PROVIDERS: PCP Physician Assistant; Visit Provider Physician Assistant | DX: I10 Essential (primary) hypertension (principal); E78.2 Mixed hyperlipidemia; I65.23 Occlusion and stenosis of bilateral carotid arteries; E78.1 Pure hyperglyceridemia; Z23 Encounter for immunization | CPT/HCPCS: 90471; 90656; 99212 ==

== ENCOUNTER 2024-05-19 06:58 | Outpatient (REF) | payer MEDICARE, SELFPAY ==
--- OUTSIDE RECORDS SUMMARY | 2024-05-19 07:01 | XMS_ITS ---
Author Organization [facility] Address [address] [place] [address] Care Team Providers Care Slot Shift Manager Name Role Phone Ehsan Payne Primary Care Provider UnavailTim Mancilla Unavailable [phone] Allergies Allergen (clinical drug ingredient) Drug/Non Drug Allergy documented on EMR Reaction Allergy Type Onset Date Status hay fever (uncoded) Unknown Allergy Active REASON FOR VISIT patient presents today for colon screening Medications Medication SIG (Take, Route, Frequency, Duration) Notes Start Date End Date Status Topamax 25 MG 2 tablet Orally Twic e a day Active Loratadine 10 MG 1 tablet Orally Once a day Active Metoprolol Succinate ER 25 MG TAKE 1 TABLET BY MOUTH EVERY DAY Oral for 90 for a SVT Active Aspirin 81 81 MG 1 tablet Orally Once a day for 30 day(s) Active Albuterol Sulfate HFA 108 (90 Base) MCG/ACT 1 puff as needed Inhalation every 4 hrs Active Lisinopril 30 MG 1 tablet Orally Once a day Active Simvastatin 40 MG 1 tablet in the even ing Orally Once a day Active Social History Tobacco Use: Social History Observation Description Date Details (start date - stop date) Former Smoker NA - NA Tobacco Use/Smoking Question Answer Notes Patient is a former smoker How long has it been since you last smoked? > 10 years Alcohol Screen Question Answer Notes Did you have a drink contain ing alcohol in the past year? Yes How often did you have a dri nk containing alcohol in the past year? 4 or more times a week (4 points) How many drinks did you have on a typical day when you were drinking in the past year? 1 or 2 drinks (0 point) How often did you have 6 or more drinks on one occasion in the past year? Never (0 point) Points 4 Interpretation Positive Section Notes: Occasional cigar; 2 glasses of wine QD Problems Problem Type SNOMED Code ICD Code Onset Dates Problem Status W/U Status Risk Notes Problem [id number] History of adenomatous polyp of colon (Z86.010) Active confirmed Problem [id number] Aspirin long-term use (Z79.82) Active confirmed Vital Signs Temperature 96.9 degrees Fahrenheit 12/15/19 23 Blood pressure systolic 00 mm Hg 12/15/19 23 Blood pressure diastolic 00 mm Hg 023 Height 66 in 12/14/2022 Weight 158 lbs 12/14/2022 BMI 25.50 kg/m2 12/14/2022 Encounters Encounter Location Date Provider Diagnosis [facility] [address] [place] [address] 12/14/2022 Tim Schmitt Encounter for screen ing for malignant neoplasm of colon Z12.11 ; Preprocedural examination Z01.818 ; History of adenomatous polyp of colon Z86.010 and Aspirin long-term use Z79.82 Assessments Encounter Date Diagnosis (ICD Code) Assessment Notes Treatment Notes Treatment Clinical Notes Section Notes 12/14/2022 Encounter for screening for malignant neoplasm of colon (ICD-10 - Z12.11) Do not take aspirin on the day of the colonoscopy Overall, Autumn appears quite well. Given his age, good clinical appearance, history of tubular adenomas of the colon, and his last colonoscopy being almost 6 years ago, I did recommend a followup colonoscopy for further screening purposes. We did review the rationale for this in regard to colon cancer prevention. Full consent is obtained for this, including risks of bleeding and perforation. He was advised not to take any aspirin on the day of the procedure. The procedure will be done with monitored anesthesia care. Autumn was comfortable with this plan. Thank you again for allowing me to participate in Autumn's care. I shall continue to keep you advised of his progress. 12/14/2022 Preprocedural examination (ICD-10 - Z01.818) Overall, Autumn appears quite well. Given his age, good clinical appearance, history of tubular adenomas of the colon, and his last colonoscopy being almost 6 years ago, I did recommend a followup colonoscopy for further screening purposes. We did review the rationale for this in regard to colon cancer prevention. Full consent is obtained for this, including risks of bleeding and perforation. He was advised not to take any aspirin on the day of the procedure. The procedure will be done with monitored anesthesia care. Autumn was comfortable with this plan. Thank you again for allowing me to participate in Autumn's care. I shall continue to keep you advised of his progress. 12/14/2022 History of adenomatous polyp of colon (ICD-10 - Z86.010) Overall, Autumn appears quite well. Given his age, good clinical appearance, history of tubular adenomas of the colon, and his last colonoscopy being almost 6 years ago, I did recommend a followup colonoscopy for further screening purposes. We did review the rationale for this in regard to colon cancer prevention. Full consent is obtained for this, including risks of bleeding and perforation. He was advised not to take any aspirin on the day of the procedure. The procedure will be done with monitored anesthesia care. Autumn was comfortable with this plan. Thank you again for allowing me to participate in Autumn's care. I shall continue to keep you advised of his progress. 12/14/2022 Aspirin long-term use (ICD-10 - Z79.82) Overall, Autumn appears quite well. Given his age, good clinical appearance, history of tubular adenomas of the colon, and his last colonoscopy being almost 6 years ago, I did recommend a followup colonoscopy for further screening purposes. We did review the rationale for this in regard to colon cancer prevention. Full consent is obtained for this, including risks of bleeding and perforation. He was advised not to take any aspirin on the day of the procedure. The procedure will be done with monitored anesthesia care. Autumn was comfortable with this plan. Thank you again for allowing me to participate in Autumn's care. I shall continue to keep you advised of his progress. Plan Of Treatment Treatment Notes Assessment Notes Encounter for screening for malignant neoplasm of colon Do not take aspirin on the day of the colonoscopy Future Test Test Name Order Date COLONOSCOPY 12/14/2022 Next Appt Details Follow Up: prn, Reason: Progress Notes * AUTUMN MAYER RDOB:[birth year] (72 yo M)Acc No.[id number]:12/14/2022 Progress Notes Patient:?AUTUMN MAYER R Provider:?Tim Schmitt MD :1950???Age:71 Y???Sex:Male Riccardo e:12/14/2022 Address:[address], [id number] Pcp:Ehsan Payne Subjective: * Chief Complaints: * ???Patient presents today fo r colon screening * HPI: ???incontinence:? I saw Autumn in the office today for evaluation of his personal history of tubular adenomas of the colon and need for colorectal cancer screening. ?I last saw Autumn in February of 2017, at which time he underwent a followup colonoscopy with removal of small tubular adenomas. He presently feels well. He enjoys a good appetite, without any significant heartburn or dysphagia. His bowel movements have been regular, without any hematochezia nor melena. He denies abdominal pain, jaundice, nor weight loss. He denies any known family history of colon cancer. Labs from last month revealed a normal CBC. Labs from May revealed a normal liver profile. * ROS:?General/Constitutional:?Change in appetite?denies.?Chills?denies.?Fatigue?denies.?Ophthalmologic:?Comments?all negative.?ENT:?Comments?all negative.?Respiratory:?hemoptysis?denies.?Cough?denies.?Cardiovascular:?Chest pain?denies.?Orthopnea?denies.?Gastrointestinal:?Comments?See HPI for details.?Genitourinary:?Hematuria?denies.?Dysuria?denies.?Musculoskeletal:?Painful joints?denies.?Weakness?denies.?Skin:?Itching?denies.?Rash?denies.?Neurologic:?Headache?denies.?Seizures?denies.?Psychiatric:?Comments?all negative.? * Medical History:? * Surgical History:?Left knee arthroscopy 2000 Left shoulder surgery for a fracture--has hardware 2013Bilateral carotid endarterectomy 2019Wisdom teeth extraction * Hospitalization/Major Diagno stic Procedure:? * Family History:?Father: dece ased, diagnosed with Heart disease.?Mother: , diagnosed with HTN (hypertension), Heart disease.? No colorectal cancer. * Social History:?Tobacco Use:?Tobacco Use/Smoking?Patient is a?former smoker,?How long has it been since you last smoked??> 10 years.?Drugs/Alcohol:?Alcohol Screen?Did you have a drink containing alcohol in the past year??Yes,?How often did you have a drink containing alcohol in the past year??4 or more times a week (4 points),?How many drinks did you have on a typical day when you were drinking in the past year??1 or 2 drinks (0 point),?How often did you have 6 or more drinks on one occasion in the past year??Never (0 point),?Points?4,?Interpretation?Positive.?Miscellaneous:?Marital status: . 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 ???Occasional cigar; 2 glasses of wine QD. * Medications:?TakingAspirin 8 1 81 MG Tablet Delayed Release 1 tablet Orally Once a dayAlbuterol Sulfate HFA 108 (90 Base) MCG/ACT Aerosol Solution 1 puff as needed Inhalation every 4 hrsLisinopril 30 MG Tablet 1 tablet Orally Once a daySimvastatin 40 MG Tablet 1 tablet in the evening Orally Once a dayTopamax 25 MG Tablet 2 tablet Orally Twice a dayLoratadine 10 MG Tablet 1 tablet Orally Once a dayMetoprolol Succinate ER 25 MG Tablet Extended Release 24 Hour TAKE 1 TABLET BY MOUTH EVERY DAY Oral , Notes: for a SVTMedication List reviewed and reconciled with the patientTaking Aspirin 81 81 MG Tablet Delayed Release 1 tablet Orally Once a dayTaking Albuterol Sulfate HFA 108 (90 Base) MCG/ACT Aerosol Solution 1 puff as needed Inhalation every 4 hrsTaking Lisinopril 30 MG Tablet 1 tablet Orally Once a dayTaking Simvastatin 40 MG Tablet 1 tablet in the evening Orally Once a dayTaking Topamax 25 MG Tablet 2 tablet Orally Twice a dayTaking Loratadine 10 MG Tablet 1 tablet Orally Once a dayTaking Metoprolol Succinate ER 25 MG Tablet Extended Release 24 Hour TAKE 1 TABLET BY MOUTH EVERY DAY Oral , Notes: for a SVTMedication List reviewed and reconciled with the patient * Allergies:?hay feveryes[Garo rgies Verified] Objective: * Vitals:?Wt: 158 lbs, Ht: 66 in, BMI:25.50 Index, BP: 00/00 mm Hg, Temp: 96.9. * Examination: ???General Examination: ?GENERAL APPEARANCE:?pleasant, well nourished, well developed, in no acute distress.?EYES:?sclera non-icteric.?ORAL CAVITY:?mucosa moist.?NECK/THYROID:?no cervical lymphadenopathy, neck supple.?SKIN:?nonjaundiced, no spider angiomata.?HEART:?S1, S2 normal.?LUNGS:?clear to auscultation bilaterally.?ABDOMEN:?normal bowel sounds, no guarding or rigidity, no guarding or rigidity, no masses palpable, soft, nontender, nondistended.?EXTREMITIES:?no edema.?NEUROLOGIC:?alert and oriented.? Assessment: * Assessment: 1.?Preprocedural examination - Z01.818 (Primary)?2.?Encounter for screening for malignant neoplasm of colon - Z12.11?3.?History of adenomatous polyp of colon - Z86.010?4.?Aspirin long-term use - Z79.82? Overall, Autumn appears quite well. Given his age, good clinical appearance, history of tubular adenomas of the colon, and his last colonoscopy being almost 6 years ago, I did recommend a followup colonoscopy for further screening purposes. We did review the rationale for this in regard to colon cancer prevention. Full consent is obtained for this, including risks of bleeding and perforation. He was advised not to take any aspirin on the day of the procedure. The procedure will be done with monitored anesthesia care. Autumn was comfortable with this plan. Thank you again for allowing me to participate in Autumn's care. I shall continue to keep you advised of his progress. Plan: * Treatment: Notes: Do not take aspirin on the day of the colonoscopy.??2.?History of adenomatous polyp of colon?Procedure: COLONOSCOPY (Ordered for 12/14/2022)* with MACsched for 03/12/23 at 9:40 ammiralax * Procedure Codes:?3017F COLOR ECTAL CA SCREEN DOC QNP1875M TOBACCO NON-[id number] BP SCR NOT PRFRM REC REASON NOS * Preventive Medicine:? ??Counseling:?Care goal follow-up plan:?Above Normal BMI Follow-up?Giving encouragement to exercise,?BMI management provided?Yes.? * Follow Up:?prn * * Sign off status: Completed true * Provider:?Tim Schmitt MD Date:? 023 Generated for Kourtneyi malou/Aron/eTransmitting on:?05/19/2024 07:01 AM EDT History and Physical Notes * HPI (History of Present Illness) Category Sub-Category Detail Notes Category Not es incontinence I saw Autumn in the office today for evaluation of his personal history of tubular adenomas of the colon and need for colorectal cancer screening. I last saw Autumn in February of 2017, at which time he underwent a followup colonoscopy with removal of small tubular adenomas. He presently feels well. He enjoys a good appetite, without any significant heartburn or dysphagia. His bowel movements have been regular, without any hematochezia nor melena. He denies abdominal pain, jaundice, nor weight loss. He denies any known family history of colon cancer. Labs from last month revealed a normal CBC. Labs from May revealed a normal liver profile. Examination Category Sub-Category Detail Notes Category Not es General Examination GENERAL APPEARANCE: pleasant , well nourished, well developed, in no acute distress HEAD: EYES: sclera non-icteric EARS: NOSE: THROAT: NECK/THYROID: no cervical lymphade nopathy, neck supple HEART: S1, S2 normal CHEST: LUNGS: clear to auscultatio n bilaterally ABDOMEN: normal bowel sounds, no guarding or rigidity, no guarding or rigidity, no masses palpable, soft, nontender, nondistended NEUROLOGIC: alert and oriented SKIN: nonjaundiced, no spi carlos angiomata EXTREMITIES: no edema PERIPHERAL PULSES: BACK: BREASTS: MUSCULOSKELETAL: MALE GENITOURINARY: LYMPH NODES: RECTAL EXAM: FEMALE GENITOURINARY: ORAL CAVITY: mucosa moist
--- OUTSIDE RECORDS SUMMARY | 2024-05-19 07:01 | XMS_ITS ---
Author Organization [facility] Address [address] [place] [address] Care Team Providers Care Manager Ct Name Role Phone Ehsan Payne Primary Care Provider Unavailab Tim Meneses Unavailable [phone] REASON FOR VISIT screening Problems Problem Type SNOMED Code ICD Code Onset Dates Problem Status W/U Status Risk Notes Problem Diverticular disease of colon (744689988) Diverticulosis of large intestine without perforation or abscess without bleeding (K57.30) Active confirmed Encounters Encounter Location Date Provider Diagnosis [facility] [address] [place], [place] [id number] 03/12/2023 Tim Schmitt Encounter for scre ening colonoscopy Z12.11 ; Rectal polyp K62.1 ; Diverticulosis of large intestine without perforation or abscess without bleeding K57.30 and Other hemorrhoids K64.8 Assessments Encounter Date Diagnosis (ICD Code) Assessment Notes Treatment Notes Treatment Clinical Notes Section Notes 03/12/2023 Encounter for screening colonoscopy (ICD-10 - Z12.11) 03/12/2023 Rectal polyp (ICD-10 - K62.1) 03/12/2023 Diverticulosis of large intestine without perforation or abscess without bleeding (ICD-10 - K57.30) 03/12/2023 Other hemorrhoids (ICD-10 - K64.8) Plan Of Treatment No Information Progress Notes * AUTUMN MAYER RDOB:[birth year] (73 yo M)Acc No.[id number]:03/12/2023 COLON WITH MAC Patient:?AUTUMN MAYER Provider:?Tim Schmitt MD :1950???Age:72 Y???Sex:Male Riccardo e:03/12/2023 Address:[address] [facility] [address], [place] Pcp:Ehsan Payne Subjective: * Chief Complaints: * ???1. Screening. * Medical History:? Objective: * Vitals:? Assessment: * Assessment: 1.?Encounter for screening c olonoscopy - Z12.11 (Primary)???2.?Rectal polyp - K62.1???3.?Diverticulosis of large intestine without perforation or abscess without bleeding - K57.30???4.?Other hemorrhoids - K64.8??? Plan: * Treatment: * Procedure Codes:?64656 COLON OSCOPY AND BIOPSY, Modifiers: PT , 0529F INTRVL 3+YRS PTS CLNSCP DOCD, Modifiers: 8P , 0528F RCMND FLW-UP 10 YRS DOCD, Modifiers: 1P * * The named appointment provid er may or may not be the originator of this progress note, and it is not deemed complete until electronically signed by the appointment provider. Sign off status: Pending * Provider:?Tim Schmitt MD Date:? 024 Generated for Ky westfall/Aron/Jose Franciscoitting on:?05/19/2024 07:00 AM EDT
--- OUTSIDE RECORDS SUMMARY | 2024-05-19 07:01 | XMS_ITS | Clinical Summary ---
Author Organization [facility] Address [address] [place] [address] Care Team Providers Care Bacteriologist Fishery Name Role Phone Cristobal Rodriguez MD Primary Care Provider [phone] Allergies No known active allergies Medications metoprolol succinate (TOPROL-XL) 25 mg 24 hr tablet TAKE 1 TABLET BY MOUTH EVERY DAY 90 tablet 2 4 Active albuterol sulfate (ProAir RespiClick) 90 mcg/actuation aerosol powdr breath activated Inhale? into the lungs as needed. Active aspirin 81 mg chewable tablet Take 81 mg by mouth daily. Active lisinopriL (PRINIVIL,ZESTR IL) 20 mg tablet Take 1 Tablet by mouth daily. Active loratadine (CLARITIN) 10 mg tablet Take 10 mg by mouth daily. Active topiramate (TOPAMAX) 25 mg tablet Take 25 mg by mouth 2 times daily. Active rosuvastatin (CRESTOR) 20 mg tablet TAKE 1 TABLET BY MOUTH DAILY 90 tablet 1 5 Active rosuvastatin (CRESTOR) 20 mg tablet Take 1 Tablet by mouth daily. 4 04/23/19 25 Discontinued Active Problems Problem Noted Date Diagnosed Date HTN (hypertension) 06/03/2018 Overview (02/21/2024): Last Assessment & Plan: The patient has a history of arterial hypertension. The patient's blood pressure today was noted to be well controlled. We'll continue the current antihypertensive medication regimen. Hyperlipidemia 06/03/2018 Overview (02/21/2024): Last Assessment & Plan: The patient has a history of hyperlipidemia. The patient is currently on simvastatin 40 mg orally daily. We will order a new lipid panel to evaluate the patient's current lipid control and determine if any adjustment are needed in the lipid lowering therapy. Migraines 06/03/2018 Seasonal allergies 06/03/2018 Bilateral carotid artery stenosis 03/11/2018 Overview (02/21/2024): s/p L endardectomy 04/02/2018. Last Assessment & Plan: The patient has a history of carotid artery stenosis status post left CEA in March 2018 and right CEA in July 2018. He is followed by the [facility] vascular surgery service (Dr. Diggs). The patient will continue to follow-up with the [facility] vascular surgery regarding continued monitoring of his carotid artery stenosis. Surgical History Surgery Date Site/Laterality Comments OTHER SURGICAL HISTORY 2012 Left PROCEDURE: MS CAPSULORRHAPHY GLENOHUMERAL JT PST W/WO BONE BLK; COMMENT: plate w/ 14 screws KNEE ARTHROSCOPY Right PROCEDURE: MS ARTHROSCOPY AID TX SPINE&/FX KNEE W/O FIXJ CAROTID ENDARTERECTOMY 04/02/2018 Left PROCEDURE: HISTORICAL CAROTID ENDART; COMMENT: Keira Peña COLONOSCOPY 02/2017 PROCEDURE: HISTORICAL COLONOSCOPY; COMMENT: No exact date or path report, repeat 5 years. Medical History Medical History Date Comments Bilateral carotid artery stenosis 03/11/2018 DX:Bilateral carotid artery stenosis; COMMENT: s/p L endardectomy 04/02/2018. HTN (hypertension) 06/03/2018 DX:HTN (hyper tension) Hyperlipidemia 06/03/2018 DX:Hyperlipidemi a Migraines 06/03/2018 DX:Migraines Seasonal allergies 06/03/2018 DX:Seasonal a llergies Family History Medical History Relation Name Comments Heart attack Father Hypertension Mother [place], emphysema, lung cancer Relation Name Status Comments Father Mother Social History Tobacco Use Types Packs/Day Years Used Date Smoking Tobacco: Former Cigarettes Q uit: 01/18/2003 Smokeless Tobacco: Former Alcohol Use Standard Drinks/Week Comments Yes 10 (1 standard drink = 0.6 oz pu re alcohol) Sex and Gender Information Value Date Recorded Sex Assigned at Not on file Legal Sex Male 10:34 PM EST Gender Identity Not on file Sexual Orientation Not on file Obstetrics History Last Filed Vital Signs Vital Sign Reading Time Taken Comments Blood Pressure 132/86 04/30/2023 8:23 AM EDT Sitting L Arm Pulse 59 04/30/2023 8:23 AM EDT Temperature - - Respiratory Rate - - Oxygen Saturation - - Inhaled Oxygen Concentration - - Weight 71.4 kg (157 lb 4.8 oz) 04/30/2023 8:23 AM EDT Height 167.6 cm (5' 6 ) 04/30/2023 8:23 AM EDT Body Mass Index 25.39 04/30/2023 8:23 AM EDT Plan of Treatment Upcoming Encounters Date Type Department Care Team (Late st Contact Info) Description 07/30/2024 8:20 AM EDT Office Visit [facility] [address] [place] [address] [place] [address] Peter Watson MD [address] [place] [address] [address] [place] [address] Health Maintenance Due Date Last Done Comments DTaP,Tdap,and Td Vaccines (1 - Tdap) 1969 Pneumococcal Vaccine: 50+ Ye ars (1 of 1 - PCV) 2000 Zoster Vaccines (1 of 2) 2000 Abdominal Aortic Aneurysm (A AA) Screen 01/14/2022 Cholesterol Screening (Lipid Panel) 01/14/2022 Colorectal Cancer Screening: Colonoscopy 01/14/2022 Depression Screening 01/14/2022 Falls Risk Assessment 01/14/2022 Hepatitis C Screening 01/14/2022 Hypertension/CHF/CAD Annual BMP Blood Test 01/14/2022 02/19/2018 Medicare Annual Wellness Visit 01/14/2022 Social Influencers of Health Screening 01/14/2022 COVID-19 Vaccine (1 - 2023-2 5 season) 2023 Influenza Vaccine (Season Ended) 2024 RSV Immunization Adult Patie nts (1 - 1-dose 75+ series) 2025 HIB Vaccines Aged Out No longer eligi ble based on patient's age to complete this topic HPV Vaccines Aged Out No longer eligi ble based on patient's age to complete this topic Hepatitis A Vaccines Aged Out No long er eligible based on patient's age to complete this topic Hepatitis B Vaccines Aged Out No long er eligible based on patient's age to complete this topic IPV Vaccines Aged Out No longer eligi ble based on patient's age to complete this topic MMR Vaccines Aged Out No longer eligi ble based on patient's age to complete this topic Meningococcal ACWY Vaccine Aged Out N o longer eligible based on patient's age to complete this topic Meningococcal B Vaccine Aged Out No l onger eligible based on patient's age to complete this topic RSV Immunization Patients Un carlos 20 months Aged Out No longer eligible b ased on patient's age to complete this topic Varicella Vaccines Aged Out No longer eligible based on patient's age to complete this topic Procedures Procedure Name Priority Date/Time Associated Diagnosis Comments ANNUAL BMP BLOOD TEST Routine 02/19/2018 from Last 3 Months or Most Recently Relevant to Health Maintenance Results * Annual BMP Blood Test (02/19/2018) Annual BMP Blood Test Abstracted Historical Provider HEALTH MAINTENANCE Final Result from Last 3 Months or Most Recently Relevant to Health Maintenance Insurance [employer] MEDICARE Advance Directives Documents on File Type Date Recorded Patient Sports Management Intern Expl anation Health Care Decision (hx) 03/25/2018 HANNY YOU DIRECTIVE Care Teams Bacteriologist Fishery Relationship Specialty Start Date End Date Cristobal Rodriguez MD [facility] [address] [place] [address] [address] [place] [address] PCP - General Internal Medicine 01/07/16
--- OUTSIDE RECORDS SUMMARY | 2024-05-19 07:01 | XMS_ITS | Patient Health Record ---
Author Organization [facility] Address [address] [place] [address] Care Team Providers Care Waistband Setter Name Role Phone Ehsan Payne Primary Care Provider UnavailTim Mancilla Unavailable [phone] Allergies Allergen (clinical drug ingredient) Drug/Non Drug Allergy documented on EMR Reaction Allergy Type Onset Date Status hay fever (uncoded) Unknown Allergy Active Reason For Referral No Information Medications Medication SIG (Take, Route, Frequency, Duration) Notes Start Date End Date Status Topamax 25 MG 2 tablet Orally Twic e a day Active Loratadine 10 MG 1 tablet Orally Once a day Active Lisinopril 30 MG 1 tablet Orally Once a day Active Simvastatin 40 MG 1 tablet in the even ing Orally Once a day Active Metoprolol Succinate ER 25 MG TAKE 1 TABLET BY MOUTH EVERY DAY Oral for 90 for a SVT Active Aspirin 81 81 MG 1 tablet Orally Once a day for 30 day(s) Active Albuterol Sulfate HFA 108 (90 Base) MCG/ACT 1 puff as needed Inhalation every 4 hrs Active Social History Tobacco Use: Social History [...] Occasional cigar; 2 glasses of wine QD Occasional cigar; 2 glasses of wine QD Problems Problem Type SNOMED Code ICD Code Onset Dates Problem Status W/U Status Risk Notes Problem 862154138 Encounter for screening for malignant neoplasm of colon (Z12.11) Active confirmed Problem 924374412 History of adenomatous polyp of colon (Z86.010) Active confirmed Problem Diverticular disease of colon (453491248) Diverticulosis of large intestine without perforation or abscess without bleeding (K57.30) Active confirmed Problem 691110755 Preprocedural examination (Z01.818) Active confirmed Problem 176709265 History of colon polyps (Z86.010) Active confirmed Problem 185343877472050 Aspirin long-ter m use (Z79.82) Active confirmed Plan Of Treatment Pending Test Test Name Order Date Pathology 03/12/2023 Future Test Test Name Order Date COLONOSCOPY 01/05/2017 COLONOSCOPY 12/14/2022 Insurance Providers Payer Name Payer Address Payer Phone Subscriber Number Group Number Insured Name Patient Relationship to Insured Coverage Start Date Coverage End Date AARP Medicare Advantage Plan [address] [address] [place] [address] [id number] AUTUMN MAYER Self - patient is the insured Medical (General) History Medical History History ICD Code Hypertension Denies CA,DM,CVA,renal disease Colonoscopy at age 50 at [facility]-negative; colonoscopy in early 60's at [facility]--06/2013--tubular adenomas removed Migraines Hyperlipidemia Colonoscopy in 02/2017 with removal of 2 small tubular adenomas SVT-sees Dr. Morrow Mild asthma--uses inhaler regularly Surgical History Surgery Date(Month/Year) Left knee arthroscopy 1999 Left shoulder surgery for a fracture--garcia s hardware 2012 Bilateral carotid endarterectomy 2019 [place] teeth extraction
[2024-05-19 07:17] LABS: Hematocrit 43.4 % (42.0-52.0); Hemoglobin 14.1 g/dl (14.0-18.0); Mean Corpuscular HGB Conc 32.5 g/dl (31.0-36.0); Mean Corpuscular Volume 89.3 fL (80.0-98.0); Mean Platelet Volume 9.7 fL (9.4-12.4); Platelet Count 166 X10*3/uL (160-400); Red Blood Count 4.86 X10*6/uL (4.60-5.80); Red Cell Distribution Width 14.5 % (11.0-16.0)
[2024-05-19 07:59] LABS: Alanine Aminotransferase 20 U/L (0-40); Albumin Level 3.8 g/dL (3.5-5.0); Alkaline Phosphatase 81 U/L (39-117); Anion Gap 10 (12-20); Aspartate Amino Transferase 27 U/L (5-37); Bilirubin Total 0.6 mg/dL (0.0-1.0); Blood Urea Nitrogen 17 mg/dL (9-16); Calcium 8.7 mg/dL (8.4-10.2); Carbon Dioxide 21 mmol/L (22-29); Chloride 114 mmol/L (96-108); Cholesterol 150 mg/dL (<200); Estimated Glomerular Filt Rate > 60; Glucose Fasting 83 mg/dL (60-99); HDL Cholesterol 41 mg/dL (>40); LDL Cholesterol Calculated 74 mg/dL (<100); Potassium 4.2 mmol/L (3.3-5.1); Sodium 141 mmol/L (135-145); Total Protein 6.4 g/dL (6.5-8.0); Triglycerides 179 mg/dL (<150)
[2024-05-19 08:10] LABS: Prostate Specific Antigen Scr 1.04 ng/mL (<0.05-4.0)
[2024-05-19 08:43] LABS: Creatinine Urine 143.12 mg/dL; Microalbum/Creatinine Ratio Ur 65.6 ug/mg cr (<30)
== END 2024-05-19 06:59 | disposition home or self-care (01) ==
LOC: HO.LAB 06:58
PROVIDERS: PCP Physician Assistant; Visit Provider Physician Assistant
DX: I10 Essential (primary) hypertension (principal); E78.2 Mixed hyperlipidemia; Z12.5 Encounter for screening for malignant neoplasm of prostate
CPT/HCPCS: 36415; 80053; 80061; 82043; 82570; 84153; 85027

== ENCOUNTER 2024-05-22 08:48 | Outpatient (AMB) | payer MEDICARE, SELFPAY ==
--- NOTE | 2024-05-22 09:03 | MHC.PC.OV ---
Vital Signs 05/22/24 09:05 Height 5 ft 6 in Weight 165 lb 2 oz BMI 26.6 BP 110/72 Blood Pressure Location Lt brachial Position Sitting Pulse 59 Pulse Source Pulse Oximeter Temp 97.3 F Temp Source Temporal Artery Scan Pulse Oximetry (%) 96 Oxygen Delivery Method Room Air Intake Visit Reasons: Annual Exam - see comments Intake Note: Patient is here today for a physical. Academic Support Assistant Required: No Die Finisher Forging: Not Required per policy Accompanied by: Self / Same As Patient Allergies No Known Allergies Allergy (Verified 05/22/24 09:21) Medication List - Last Reconciled 05/22/24 by Ehsan Payne PA-C albuterol sulfate 90 mcg/actuation 1 inh inhalation QID PRN 30 days aspirin (Adult Aspirin Regimen) 81 mg PO DAILY fluticasone propionate 50 mcg/actuation 1 spray intranasal BID PRN ipratropium bromide 2 sprays intranasal BID lisinopril 10 mg PO DAILY 90 days metoprolol succinate ER 25 mg PO DAILY rosuvastatin (Crestor) 20 mg PO DAILY topiramate 50 mg (2 x 25 mg) PO BID 90 days Tobacco use date assessed: 05/22/24 Fall risk assessment: No Falls in past year Last assessed Fall Risk: 05/22/24 Dental Screening Dental Screen Date: 05/22/24 Did you have a dental visit in the last 12 months?: Yes Did you have a dental problem in the last 6 months where you did not have access to dental care?: No Was dental information given to patient?: Patient has dentist HPI Annual Exam - see comments HPI Details Iker is a 73 y/o M here today for a routine annual physical . Patient has a Pmhx of HLD, Migraines, HTN, carotid stenosis. ? .. ? HTN: Patient's blood pressure acceptable today in office. He does use metoprolol consistently, only use his lisinopril on as needed basis.. He reports at home having low blood pressure readings 90 to 100 systolic. He does report at these times feeling somewhat tired and fatigued. Noted mild Microalbuminuria ? .. ? Carotid stenosis :? Is followed yearly by /Vascular.? Denies any further episodes of dizziness were syncope. Patient is a smoker has quit several years ago. Recent Carotid US -->There is severe atherosclerotic disease in the bilateral common carotid and internal carotid arteries, however by velocity criteria to disease corresponds to less than 50% stenosis. Patient continues aspirin and statin therapy. Most recent lipid panel showing excellent control of his total cholesterol and LDL Continues to follow [place] vascular and getting ultrasounds annually ? .. ? HLD: Patient on statin therapy and reporting no side effects. Most recent lipid panel showing acceptable LDL and total cholesterol. Has been making lifestyle modifications to his diet to reduce his cholesterol as well. Vaccine: UTD with COVID, ,UTD with Tdap and PCV, UTD Shingrex vaccine Colonoscopy:? Done [place] [address] Schmitt, polyp found tubular adenoma repeat 5 years- Laboratory Tests 11/20/23 05/19/24 07:24 07:06 RBC 4.86 Creatinine 1.18 Triglycerides 256 H 179 H LDL Cholesterol, C alc 74 HDL Cholesterol 41 PSA Screen 1.04 PFSH Medical History Non-pressure chronic ulcer of skin of other sites with unspecified severity Wounds, multiple Asthma History of supraventricular tachycardia Migraines Osteoarthritis Carotid stenosis Elevated cholesterol HTN (hypertension) Tubular adenoma of colon Former smoker Surgical History H/O colonoscopy H/O left knee surgery (~1999) H/O carotid endarterectomy S/P wisdom tooth extraction Hx of shoulder surgery Family History Father Myocardial infarction Mother Hypertension Emphysema lung Myocardial infarction Substance use disorder Son No problems noted. Son No problems noted. Son No problems noted. Daughter No problems noted. 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 1. Little interest or pleasure in doing things: nearly every day 2. Feeling down, depressed, or hopeless: not at all 3. Trouble falling or staying asleep, or sleeping too much: not at all 4. Feeling tired or having little energy: not at all 5. Poor appetite or overeating: not at all 6. Feeling bad about yourself - or that you are a failure or have let yourself or your family down: not at all 7. Trouble concentrating on things, such as reading the newspaper or watching television: not at all 8. Moving or speaking so slowly that other people could have noticed. Or the opposite - being so fidgety or restless that you have been moving around a lot more than usual: not at all 9. Thoughts that you would be better off or of hurting yourself in some way: not at all Total score: 3 Depression Screening Interpretation: Positive Depression Screening Done: Yes 92088 - PHQ-9 Billing: Yes Source: Developed by Drs. Tim Power, Digna Ascencio, Dani Herrera and colleagues, with an educational dianelys from [employer]. Thrive Questionnaire Date Thrive assessed: 05/22/24 I am a: Patient What is your living situation today?: I have a steady place to live Within the past 12 months, did the food you bought not last and you didn't have the money to get more?: Never true Within the past 12 months, did you worry whether your food would run out before you got money to buy more?: Never true Do you have trouble paying for medicines?: No Do you have trouble getting transportation to medical appointments?: No Do you have trouble paying your heating and electricity bill?: No Do you have trouble taking care of your child, family member or friend?: No Do you have trouble with day-to-day activities such as bathing, preparing meals, shopping, managing finances, etc.?: No Are you currently unemployed and looking for a job?: No Are you interested in more education?: No Please select the resources that you would like help with: None Currently or been in a relationship where the following occur: No concerns reported THRIVE Score: 0 AUDIT C Alcohol Use Questionnaire (AUDIT-C) 1. How often do you have a drink containing alcohol?: 4 or more times a week 2. How many drinks containing alcohol do you have on a typical day when you are drinking?: 1 or 2 3. How often do you have six or more drinks on one occasion?: Never Total Score: 4 JEFF-7 AMB Questionnaire JEFF-7 Date JEFF - 7 assessed: 05/22/24 Feeling nervous, anxious, or on edge: 1 = Several days Not being able to stop or control worryin = Not at all Worrying too much about different things: 0 = Not at all Trouble relaxin = Not at all Being so restless that it is hard to sit still: 0 = Not at all Becoming easily annoyed or irritable: 0 = Not at all Feeling afraid as if something awful might happen: 0 = Not at all Total JEFF-7 score (0-4 normal; 5-9 mild; 10-14 moderate; 15-21 severe): 1 Source: Developed by Drs. Tim Power, Digna Ascencio, Dnai Herrera and colleagues, with an educational dianelys from [employer]. JEFF-7 Assessment Billing JEFF-7 Assessment Tool: JEFF-7 Assessment 20865 Review of Systems Const Denies body aches, Denies chills, Denies excessive sweating, Denies fatigue, Denies fever(s) and Denies headache(s) Eyes Denies blurry vision ENT Denies dysphagia, Denies vertigo, Denies dizziness, Denies headache(s), Denies hearing loss and Denies tinnitus Card Denies chest pain, Denies chest pain with activity, Denies syncope, Denies irregular heart rhythm and Denies dyspnea Resp Denies chest congestion, Denies cough, Denies hemoptysis, Denies dyspnea and Denies wheezing GI Denies abdominal pain, Denies melena, Denies hematochezia, Denies coffee ground emesis, Denies dysphagia, Denies diarrhea, Denies nausea and Denies vomiting Denies difficulty urinating, Denies dysuria, Denies urinary frequency, Denies urinary hesitancy and Denies urinary urgency Musc Denies arthralgias, Denies limited range of motion, Denies muscle cramps and Denies muscle weakness Skin/Breast Denies rash and Denies skin ulcer Neuro Denies Abnormal speech present, Denies confusion, Denies vertigo, Denies dizziness, Denies syncope, Denies headache(s), Denies memory loss and Denies seizure-like activity Psych Denies anxiety, Denies confusion, Denies depression, Denies memory loss, Denies panic attacks and Denies paranoia Endo Denies excessive sweating, Denies fatigue, Denies flushing, Denies polydipsia and Denies polyuria Aller/Immun Denies wheezing Physical exam (Primary Care) Vital Signs: Last Vital Signs Temp 97.3 F 05/22/24 09:05 Pulse 59 05/22/24 09:05 BP 110/72 05/22/24 09:05 Pulse Ox 96 05/22/24 09:05 Oxygen Delivery Method Room Air 05/22/24 09:05 BMI result Body Mass Index 26.6 Tobacco/Smoking Status: Tobacco use Status Tobacco use date assessed 05/22/24 05/22/24 09:09 Patient Tobacco Use Status Former Tobacco user 05/22/24 09:25 e-Cigarette/Vaping Use Never Used 05/22/24 09:25 PHQ-9: PHQ-9 Score PHQ-9: Total score 3 05/22/24 09:25 Depression Screening Interpretation: Positive Thrive Assessment: Date of Thrive Assessment Date Thrive assessed 05/22/24 05/22/24 09:09 Currently or been in a relationship where the following occur: No concerns reported Const General: cooperative, comfortable, no acute distress, alert and awake; No confusion Orientation/consciousness: oriented to person, oriented to place, patient oriented x3 and No confusion HENMT Head: Yes normocephalic Ears: external ears normal and TM's normal bilaterally Face and sinus: No sinus tenderness Mouth: Normal oral and palatal mucosa present and tongue normal Teeth and gingiva: dentition normal and gingiva normal Throat: Yes posterior oropharynx normal, Yes tonsils normal and Yes uvula midline Eyes Conjunctivae: conjunctivae normal Sclerae: sclerae normal Pupils: Equal, round and reactive pupils present EOM: EOMs intact bilaterally Direct Ophthalmoscopy: No no photophobia Neck Neck: Yes no lymphadenopathy, No tender and Yes no JVD Thyroid: Thyroid normal Carotids: no bruits Chest Chest palpation & inspection: no tenderness Resp Effort & Inspection: normal respiratory effort, no audible wheezes, not labored and no stridor Auscultation: no crackles, no rales, no rhonchi and no wheezes Cardio Jugular venous distension: no JVD Rate: regular rate, not bradycardic and not tachycardic Rhythm: regular rhythm Bruits: no carotid bruits Peripheral pulses: Peripheral pulses 2+ throughout GI Inspection: Yes normal to inspection, No abdominal wall ecchymosis and No visible herniation Palpation (GI): Soft to palpation, nontender, no guarding, not rigid and No hepatosplenomegaly present Auscultation: normoactive bowel sounds General: Yes no CVA tenderness Back/Spine/Pelvis Back: no CVA tenderness and No back tenderness Cervical Spine: cervical ROM normal Thoracic/Lumbar Spine: thoracic and lumbar spine normal to inspection, straight leg raise negative bilaterally, No thoraco-lumbar ROM limited and No lumbar spinal tenderness Skin Lesions: no lesions Rashes: no rashes Wounds: no wounds Neuro General: oriented to person, oriented to place, patient oriented x3, CN's II-XI intact bilaterally and No confusion Cranial nerves: Yes Equal, round and reactive pupils present and Yes Normal accommodation reflex present Cognition (Neuro): normal cognition Speech: No Abnormal speech present Gait exam (Neuro): Normal gait present Motor exam (neuro): 5/5 motor strength present throughout Extrem Right upper extremity: full ROM; no cyanosis Left upper extremity: full ROM; no cyanosis Right lower extremity: no edema Left lower extremity: no edema Psych Appearance: grossly normal Mental Status: mental status grossly normal Affect: normal affect Attitude: cooperative Thought process: Normal thought process present Coding Level of Care Code Est Pt Prev Care >65y(58764) Diagnoses Annual physical exam Z00.00 Mixed hyperlipidemia E78.2 Hyperlipidemia type: mixed hyperlipidemia Primary hypertension I10 Hypertension type: primary hypertension Bilateral carotid artery stenosis I65.23 Laterality: bilateral Hypertriglyceridemia E78.1 Microalbuminuria R80.9 Additional Codes PHQ-9 - 72050 - PHQ-9 Billing: Yes ([id number]) JEFF-7 Assessment Billing - JEFF-7 Assessment Tool: JEFF-7 Assessment 62531 ([id number]) Assessment & Plan Assessment & Plan (1) Annual physical exam: Code(s): Z00.00 - Encounter for general adult medical examination without abnormal findings Category: Medical Plan: As per HPI (2) HLD (hyperlipidemia): Code(s): E78.5 - Hyperlipidemia, unspecified Category: Medical Qualifiers: Hyperlipidemia type: mixed hyperlipidemia Qualified Code(s): E78.2 - Mixed hyperlipidemia Plan: Patient's most recent lipid panel showing excellent control of his total cholesterol and LDL. He continues on statin therapy without any particular side effects. His triglycerides are still borderline high and will work on dietary modifications. Goal LDL to remain below 100 (3) HTN (hypertension): Code(s): I10 - Essential (primary) hypertension Category: Medical Qualifiers: Hypertension type: primary hypertension Qualified Code(s): I10 - Essential (primary) hypertension Plan: Patient's blood pressure under excellent control. He reports he consistently uses his metoprolol though only has to use lisinopril from time to time. Most recent microalbumin has improved. Goal blood pressure to remain below 140/90 (4) Carotid stenosis: Comment: 2019 - bilateral carotid endarterectomy by Dr. Malloy Code(s): I65.29 - Occlusion and stenosis of unspecified carotid artery Category: Medical Qualifiers: Laterality: bilateral Qualified Code(s): I65.23 - Occlusion and stenosis of bilateral carotid arteries Plan: Patient continues to follow vascular surgeon here in [place]. He does get regular carotid ultrasounds which has been stable. He otherwise denies any further symptoms related to his carotid stenosis.. (5) Hypertriglyceridemia: Code(s): E78.1 - Pure hyperglyceridemia Category: Medical Plan: As above patient's triglycerides are borderline high and will work on lifestyle and dietary modifications to reduce his triglycerides. (6) Microalbuminuria: Code(s): R80.9 - Proteinuria, unspecified Category: Medical Plan: Noted mild microalbuminuria most recent labs. His blood pressure seems to be well controlled. He will try to increase his fluids. Will recheck his microalbumin in 6 months. Will consider Nephrology evaluation Orders: Orders Complete Blood Count no Diff Today I10 - Essential (primary) hypertension Lipid Panel Today E78.2 - Mixed hyperlipidemia Microalbumin, Random (w Creat) Today R80.9 - Proteinuria, unspecified Comprehensive [place]. Panel Fast Today I10 - Essential (primary) hypertension Patient Instructions: Goal: Blood pressure to remain below 140/90, LDL to optimally below 100 Barriers: Adherence to physical activity and healthy eating habits
[2024-05-22 09:05] VITALS: BP 110/72; PULSE 59; TEMP 36.3; O2SAT 96; BMI 26.6
--- OUTSIDE RECORDS SUMMARY | 2024-05-22 09:32 | XMS_ITS | Patient Health Record ---
Author Organization [facility] Address [address] [place] [address] Care Team Providers Care Brass Pickler Name Role Phone Ehsan Payne Primary Care Provider UnavailTim Mancilla Unavailable [phone] Allergies Allergen (clinical drug ingredient) Drug/Non Drug [...] Problem Status W/U Status Risk Notes Problem 885639245 Encounter for screening for malignant neoplasm of colon (Z12.11) Active confirmed Problem 454254932 History of adenomatous polyp of colon (Z86.010) Active confirmed Problem Diverticular disease of colon (860577555) Diverticulosis of large intestine without perforation or abscess without bleeding (K57.30) Active confirmed Problem 751233712 Preprocedural examination (Z01.818) Active confirmed Problem 055224563 History of colon polyps (Z86.010) Active confirmed Problem 793764760188671 Aspirin long-ter m use (Z79.82) Active confirmed Plan Of Treatment Pending Test Test Name Order Date Pathology 03/12/2023 Future Test Test Name Order Date COLONOSCOPY 01/05/2017 COLONOSCOPY 12/14/2022 Insurance Providers Payer Name Payer Address Payer Phone Subscriber Number Group Number Insured Name Patient Relationship to Insured Coverage Start Date Coverage End Date AARP Medicare Advantage Plan [address] [address] [place] [address] [id number] AUTUMN MAYER Self - patient is the insured Medical (General) History Medical History History ICD Code Hypertension Denies [place],DM,CVA,renal disease Colonoscopy at age 50 at [facility]-negative; colonoscopy in early 60's at [facility]--06/2013--tubular adenomas removed Migraines Hyperlipidemia Colonoscopy in 02/2017 with removal of 2 small tubular adenomas SVT-sees Dr. Morrow Mild asthma--uses inhaler regularly Surgical History Surgery Date(Month/Year) Left knee arthroscopy 1999 Left shoulder surgery for a fracture--garcia s hardware 2012 Bilateral carotid endarterectomy 2019 [place] teeth extraction
--- OUTSIDE RECORDS SUMMARY | 2024-05-22 09:32 | XMS_ITS ---
Author Organization [facility] Address [address] [place] [address] Care Team Providers Care Associate Pastor Name Role Phone Ehsan Payne Primary Care Provider UnavailTim Mancilla Unavailable [phone] Allergies Allergen (clinical drug ingredient) Drug/Non Drug [...] Problem Status W/U Status Risk Notes Problem 545864975 History of adenomatous polyp of colon (Z86.010) Active confirmed Problem 502185376336973 Aspirin long-term use (Z79.82) Active confirmed Vital Signs Temperature 96.9 degrees Fahrenheit 12/15/19 23 Blood pressure systolic 00 mm Hg 12/15/19 23 Blood pressure diastolic 00 mm Hg 023 Height 66 in 12/14/2022 Weight 158 lbs 12/14/2022 BMI 25.50 kg/m2 12/14/2022 Encounters Encounter Location Date Provider Diagnosis [facility] [address] [place] [address] 12/14/2022 Tim Schmitt Encounter for screen ing [...] AUTUMN MAYER RDOB:[birth year] (72 yo M)Acc No.[id number]:12/14/2022 Progress Notes Patient:?AUTUMN MAYER R Provider:?Tim Schmitt MD :1950???Age:71 Y???Sex:Male Riccardo e:12/14/2022 Address:[address], [id number] Pcp:Ehsan Payne Subjective: * Chief Complaints: * [...] point),?Points?4,?Interpretation?Positive.?Miscellaneous:?Marital status: . 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 ??Counseling:?Care goal follow-up plan:?Above Normal BMI Follow-up?Giving encouragement to exercise,?BMI management provided?Yes.? * Follow Up:?prn * * Sign off status: Completed true * Provider:?Tim Schmitt MD Date:? 023 Generated for Kourtneyi malou/Aron/eTransmitting on:?05/22/2024 09:32 AM EDT History and Physical Notes * [...]
--- OUTSIDE RECORDS SUMMARY | 2024-05-22 09:32 | XMS_ITS ---
Author Organization [facility] Address [address] [place] [address] Care Team Providers Care Measurement Superintendent Name Role Phone Ehsan Payne Primary Care Provider Unavailab Tim Meneses Unavailable [phone] REASON FOR VISIT screening Problems Problem Type SNOMED Code ICD Code Onset Dates Problem Status W/U Status Risk Notes Problem Diverticular disease of colon (831058369) Diverticulosis of large intestine without perforation or abscess without bleeding (K57.30) Active confirmed Encounters Encounter Location Date Provider Diagnosis [facility] [address] [place], [place] [id number] 03/12/2023 Tim Schmitt Encounter for scre ening [...] AUTUMN MAYER RDOB:[birth year] (73 yo M)Acc No.[id number]:03/12/2023 COLON WITH MAC Patient:?AUTUMN MAYER Provider:?Tim Schmitt MD :1950???Age:72 Y???Sex:Male Riccardo e:03/12/2023 Address:[address], [id number] Pcp:Ehsan Payne Subjective: * Chief Complaints: * ???1. Screening. * Medical History:? Objective: * Vitals:? Assessment: * Assessment: 1.?Encounter for screening c olonoscopy - Z12.11 (Primary)???2.?Rectal polyp - K62.1???3.?Diverticulosis of large intestine without perforation or abscess without bleeding - K57.30???4.?Other hemorrhoids - K64.8??? Plan: * Treatment: * Procedure Codes:?07005 COLON OSCOPY AND BIOPSY, Modifiers: PT , [...] Date:? 024 Generated for Ky westfall/Aron/Jose Franciscoitting on:?05/22/2024 09:31 AM EDT
--- OUTSIDE RECORDS SUMMARY | 2024-05-22 09:32 | XMS_ITS | Clinical Summary ---
Author Organization [facility] Address [address] [place] [address] Care Team Providers Care Financial Aid Administrator Name Role Phone Cristobal Rodriguez MD Primary Care Provider [phone] Allergies No known active allergies Medications metoprolol succinate (TOPROL-XL) 25 mg 24 hr tablet TAKE 1 TABLET BY MOUTH EVERY DAY 90 tablet 2 01/21/2024 Active albuterol sulfate (ProAir RespiClick) 90 mcg/actuation aerosol powdr breath activated Inhale?i nto the lungs as needed. Active aspirin 81 mg chewable tablet Take 81 mg by mouth daily. Active lisinopriL (PRINIVIL,ZESTRI L) 20 mg tablet Take 1 Tablet by mouth daily. Active loratadine (CLARITIN) 10 mg tablet Take 10 mg by mouth daily. Active topiramate (TOPAMAX) 25 mg tablet Take 25 mg by mouth 2 times daily. Active rosuvastatin (CRESTOR) 20 mg tablet TAKE 1 TABLET BY MOUTH DAILY 90 tablet 1 04/22/2024 Active Active Problems Problem Noted Date Diagnosed Date [...] July 2018. He is followed by the [facility] vascular surgery service (Dr. Diggs). The patient will continue to follow-up with the [facility] vascular surgery regarding continued monitoring of his carotid artery stenosis. Surgical History Surgery Date Site/Laterality Comments OTHER SURGICAL HISTORY 2012 Left PROCEDURE: NC CAPSULORRHAPHY GLENOHUMERAL JT PST W/WO BONE BLK; COMMENT: plate w/ 14 screws KNEE ARTHROSCOPY Right PROCEDURE: NC ARTHROSCOPY AID TX SPINE&/FX KNEE W/O FIXJ CAROTID ENDARTERECTOMY 04/02/2018 Left PROCEDURE: HISTORICAL CAROTID ENDART; COMMENT: Dr. Malloy [facility] COLONOSCOPY 02/2017 PROCEDURE: HISTORICAL COLONOSCOPY; COMMENT: No [...] Name Comments Heart attack Father Hypertension Mother [place], emphysema, lung cancer Relation Name Status Comments [...] Description 07/30/2024 8:20 AM EDT Office Visit [facility] [address] [place] [address] Dr [address] [place] [id number] Peter Watson MD [address] [place] [address] Dr Campos [address] [place] [address] Health Maintenance Due Date Last Done Comments [...] Influencers of Health Screening 01/14/2022 COVID-19 Vaccine ( - 2023-2 5 season) 2023 Influenza Vaccine [...] Test (02/19/2018) Annual BMP Blood Test Abstracted us Historical Provider HEALTH MAINTENANCE Final Result from Last 3 Months or Most Recently Relevant to Health Maintenance Insurance [employer] MEDICARE Advance Directives Documents on File Type Date Recorded 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
== END 2024-05-22 09:42 | disposition home or self-care (01) ==
LOC: HO.HMCH 08:49
PROVIDERS: PCP Physician Assistant; Visit Provider Physician Assistant
DX: Z00.00 Encounter for general adult medical examination without abnormal findings (principal); E78.2 Mixed hyperlipidemia; I10 Essential (primary) hypertension; I65.23 Occlusion and stenosis of bilateral carotid arteries; E78.1 Pure hyperglyceridemia; R80.9 Proteinuria, unspecified

== ENCOUNTER → 2024-05-22 08:48 | Outpatient (BNVA) | payer MEDICARE, SELFPAY | PROVIDERS: PCP Physician Assistant; Visit Provider Physician Assistant | DX: Z00.00 Encounter for general adult medical examination without abnormal findings (principal); E78.2 Mixed hyperlipidemia; I10 Essential (primary) hypertension; I65.23 Occlusion and stenosis of bilateral carotid arteries; E78.1 Pure hyperglyceridemia; R80.9 Proteinuria, unspecified | CPT/HCPCS: 96127; 99397 ==

== ENCOUNTER 2024-07-01 15:09 | Outpatient (REF) | payer MEDICARE, SELFPAY ==
--- NOTE | ~2024-07-01 | US_ITS ---
EXAMINATION: US EXTRACRANIAL CAROTID DUPLEX, BILATERAL CLINICAL INFORMATION: Status post endarterectomies, bilaterally. COMPARISON: June 08, 2023. TECHNIQUE: Real-time ultrasound and Doppler techniques (integrating B-mode 2-D vascular images, Doppler spectral analysis and color-flow Doppler imaging) were utilized to interrogate the extracranial carotid arteries, the vertebral arteries and proximal subclavian arteries bilaterally. The degree of stenosis is determined by criteria similar to NASCET. FINDINGS: Right Side: 1. There is calcified atherosclerotic plaque seen in the bifurcation/proximal ICA region. 2. The common carotid artery PSV proximally is 79 cm/s and distally 75 cm/s. 3. The proximal internal carotid artery velocities are 91 cm/s systolic and 24 cm/s diastolic. 4. The proximal external carotid artery PSV is 159 cm/s. 5. The vertebral artery shows antegrade flow. 6. The subclavian artery waveforms are triphasic.. Left Side: 1. There is calcified atherosclerotic plaque seen in the bifurcation/proximal ICA region. 2. The common carotid artery PSV proximally is 149 cm/s and distally 167 cm/s. 3. The proximal internal carotid artery velocities are 165 cm/s systolic and 33 cm/s diastolic. 4. The proximal external carotid artery PSV is 158 cm/s. 5. The vertebral artery shows antegrade flow. 6. The subclavian artery waveforms are triphasic.. US/US carotid duplex BI IMPRESSION: 1. RIGHT: Calcified plaques representing 0-49% stenosis by ultrasound criteria. 2. LEFT: Calcified plaques representing 50-79% stenosis by ultrasound criteria. 3. There is slight worsening, left ICA in the category severity of disease when compared to the previous study dated June 08, 2023. Electronically signed by: Hayden Miller MD 07/02/2024 09:23 AM EDT
--- OUTSIDE RECORDS SUMMARY | 2024-07-01 15:11 | XMS_ITS ---
Author Organization [facility] Address [address] [place] [address] Care Team Providers Care Formula Weigher Name Role Phone Ehsan Payne Primary Care Provider Unavailab Tim Meneses Unavailable [phone] REASON FOR VISIT screening Problems Problem Type SNOMED Code ICD Code Onset Dates Problem Status W/U Status Risk Notes Problem Diverticulosis o f large intestine without perforation or abscess without bleeding (K57.30) Active confirmed Encounters Encounter Location Date Provider Diagnosis [facility] Outpatient [address] [place], [place] [id number] 03/12/2023 Tim Schmitt Encounter for scre ening [...] AUTUMN MAYER RDOB:[birth year] (73 yo M)Acc No.[id number]:03/12/2023 COLON WITH MAC Patient:?AUTUMN MAYER Provider:?Tim Schmitt MD :1950???Age:72 Y???Sex:Male Riccardo e:03/12/2023 Address:[address] [facility] [address], [id number] Pcp:Ehsan Payne Subjective: * Chief Complaints: * ???1. Screening. * Medical History:? Objective: * Vitals:? Assessment: * Assessment: 1.?Encounter for screening c olonoscopy - Z12.11 (Primary)???2.?Rectal polyp - K62.1???3.?Diverticulosis of large intestine without perforation or abscess without bleeding - K57.30???4.?Other hemorrhoids - K64.8??? Plan: * Treatment: * Procedure Codes:?90134 COLON OSCOPY AND BIOPSY, Modifiers: PT , [...] Date:? 024 Generated for Ky westfall/Aron/Jose Franciscoitting on:?07/01/2024 03:11 PM EDT
== END 2024-07-01 15:10 | disposition home or self-care (01) ==
LOC: HO.US 15:09
PROVIDERS: PCP Physician Assistant; Visit Provider Surgery Vascular Surgery
DX: I65.23 Occlusion and stenosis of bilateral carotid arteries (principal)
CPT/HCPCS: 93880

== ENCOUNTER → 2024-07-01 15:11 | Outpatient (BNV) | payer MEDICARE, SELFPAY | PROVIDERS: PCP Physician Assistant; Visit Provider Radiology Diagnostic Radiology | DX: I65.22 Occlusion and stenosis of left carotid artery (principal) | CPT/HCPCS: 93880 ==

== ENCOUNTER 2024-07-15 13:54 | Outpatient (AMB) | payer MEDICARE, SELFPAY ==
[2024-07-15 14:13] VITALS: BMI 26.6
--- NOTE | 2024-07-15 14:13 | A.OFFVIS_ITS ---
Vital Signs 07/15/24 14:13 Height 5 ft 6 in Weight 165 lb BMI 26.6 Intake Visit Reasons: 1 yr follow up carotid US 07/01/24 Intake Note: 1 yr follow up carotid US 07/01/24 w/ hx of bilateral CEA in 2019. Accompanied by: Self / Same As Patient Allergies No Known Allergies Allergy (Verified 07/15/24 14:16) HPI HPI 1 yr follow up carotid US 07/01/24: Details: The patient is a 73-year-old male presenting for annual carotid artery surveillance. Since a procedure in [address] Rodriguez, intended to address carotid artery stenosis, regular follow-ups have been maintained. The patient has no new complaints related to his carotid arteries, and evaluations show a clean right carotid artery while the left presents slight imaging variations that are not clinically significant. The patient is on baby aspirin and rosuvastatin, experiencing improved cholesterol measures. Diet monitoring continues as part of ongoing care, and the patient is scheduled to see Dr. Morrow for cardiology follow-up. Stability in his condition is noted with no new or progressing symptoms reported. PFSH Medical History Non-pressure chronic ulcer of skin of other sites with unspecified severity Wounds, multiple Asthma History of supraventricular tachycardia Migraines Osteoarthritis Carotid stenosis Elevated cholesterol HTN (hypertension) Tubular adenoma of colon Former smoker Surgical History H/O colonoscopy H/O left knee surgery (~1999) H/O carotid endarterectomy S/P wisdom tooth extraction Hx of shoulder surgery Family History Father Myocardial infarction Mother Hypertension Emphysema lung Myocardial infarction Substance use disorder Son No problems noted. Son No problems noted. Son No problems noted. Daughter No problems noted. 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 Cognitive needs: No Hearing needs: No Vision needs: Yes (Glasses) Review of Systems Const All systems reviewed & are unremarkable except as noted in HPI and below Reports no additional complaints ENT Reports Normal hearing present Card Denies chest pain, Denies chest pain at rest, Denies chest pain with activity and Denies pedal edema Resp Denies cough GI Denies abdominal pain Musc Denies abnormal gait, Denies muscle cramps and Denies radiating pain into limb Skin/Breast Denies skin ulcer and Denies wounds Neuro Reports Normal hearing present and Denies abnormal gait Psych Reports no additional complaints Physical Exam Vital Signs: BMI result Body Mass Index 26.6 Const General: cooperative, healthy appearing and comfortable Orientation/consciousness: oriented to person, oriented to place and oriented to time HEENT Head: Yes normal to inspection Neck Neck: Yes normal visual inspection Carotids: no bruits Chest Chest palpation & inspection: normal inspection of the chest Resp Effort & Inspection: normal respiratory effort and able to speak in complete sentences Auscultation: clear to auscultation bilaterally, no crackles, no rales, no rhonchi and no wheezes Cardio Rate: regular rate Rhythm: regular rhythm Heart sounds: S1 normal heart sound present and S2 normal heart sound present Bruits: no carotid bruits Peripheral pulses: Peripheral pulses 2+ throughout GI Inspection: Yes normal to inspection Skin Wounds: no wounds Hair: normal Neuro General: oriented to person, oriented to place and oriented to time Cranial nerves: Yes CN's II-XII intact bilaterally and Yes Normal hearing present Cognition (Neuro): normal cognition Motor exam (neuro): 5/5 motor strength present throughout Extrem Other: venous exam: No significant superficial varicosities or spider telan giectasias, minimal edema General: No clubbing, No cyanosis and No edema Psych Appearance: grossly normal Mental Status: mental status grossly normal Speech and movement: Normal speech and movement present Results Reviewed Results Reviewed: Noninvasive carotid testing dated 07/01/2024 demonstrates right-sided 0-49% left side 50-79% with a peak systolic of 165. Written report and images were reviewed. Assessment & Plan Assessment & Plan (1) Carotid stenosis: Comment: 2019 - bilateral carotid endarterectomy by Dr. Malloy Code(s): I65.29 - Occlusion and stenosis of unspecified carotid artery Category: Medical Qualifiers: Laterality: bilateral Qualified Code(s): I65.23 - Occlusion and stenosis of bilateral carotid arteries Plan: In short patient has asymptomatic carotid disease. We have reviewed signs and symptoms of a stroke. We also discussed risk factor modification inclusive a healthy diet low in cholesterol. The patient will follow up with us with surveillance ultrasound of the carotids 1 year. Should there be any changes or signs or symptoms of a stroke we will be happy to see them back sooner. Thank you for allowing us to participate in this patient's care. If there are any questions or concerns please do not hesitate to contact us. Orders: Orders US carotid duplex BI 1 Year I65.23 - Occlusion and stenosis of bilateral carotid arteries Coding Level of Care Code Est Pt Level 4 (02181) Diagnoses Bilateral carotid artery stenosis I65.23 Laterality: bilateral
--- OUTSIDE RECORDS SUMMARY | 2024-07-15 16:33 | XMS_ITS ---
Author Organization [facility] Address [address] [place] [address] Care Team Providers Care Urogynecology Physician Name Role Phone Ehsan Payne Primary Care Provider Unavailab Tim Meneses Unavailable [phone] REASON FOR VISIT screening Problems Problem Type SNOMED Code ICD Code Onset Dates Problem Status W/U Status Risk Notes Problem Diverticulosis o f large intestine without perforation or abscess without bleeding (K57.30) Active confirmed Encounters Encounter Location Date Provider Diagnosis [facility] Outpatient [address] [place], [place] [phone] 03/12/2023 Tim Schmitt Encounter for scre ening [...] AUTUMN MAYER RDOB:[birth year] (73 yo M)Acc No.[id number]:03/12/2023 COLON WITH MAC Patient:?AUTUMN MAYER Provider:?Tim Schmitt MD :1950???Age:72 Y???Sex:Male Riccardo e:03/12/2023 Address:[address] [facility] [address], [place] Pcp:Ehsna Payne Subjective: * Chief Complaints: * ???1. Screening. * Medical History:? Objective: * Vitals:? Assessment: * Assessment: 1.?Encounter for screening c olonoscopy - Z12.11 (Primary)???2.?Rectal polyp - K62.1???3.?Diverticulosis of large intestine without perforation or abscess without bleeding - K57.30???4.?Other hemorrhoids - K64.8??? Plan: * Treatment: * Procedure Codes:?49716 COLON OSCOPY AND BIOPSY, Modifiers: PT , [...] Date:? 024 Generated for Ky westfall/Aron/Jose Franciscoitting on:?07/15/2024 04:33 PM EDT
== END 2024-07-15 14:27 | disposition home or self-care (01) ==
LOC: HO.HVS 13:55
PROVIDERS: PCP Physician Assistant; Visit Provider Surgery Vascular Surgery
DX: I65.23 Occlusion and stenosis of bilateral carotid arteries (principal)
CPT/HCPCS: 99214

== ENCOUNTER → 2024-07-15 13:54 | Outpatient (BNVA) | payer MEDICARE, SELFPAY | PROVIDERS: PCP Physician Assistant; Visit Provider Surgery Vascular Surgery | DX: I65.23 Occlusion and stenosis of bilateral carotid arteries (principal) | CPT/HCPCS: 99212 ==

== ENCOUNTER 2024-11-21 08:08 | Outpatient (REF) | payer MEDICARE, SELFPAY ==
--- OUTSIDE RECORDS SUMMARY | 2024-11-21 08:26 | XMS_ITS | Patient Health Record ---
Author Organization [facility] Address [address] [place] [address] Care Team Providers Care Bulbs Farmworker Name Role Phone Ehsan Payne Primary Care Provider Tim Jones Unavailable [phone] Allergies Allergen (clinical drug ingredient) Drug/Non Drug [...] TAKE 1 TABLET BY MOUTH EVERY DAY Oral; Duration: 90 for a SVT Active Aspirin 81 81 MG 1 tablet Orally Once a day; Duration: 30 day(s) Active Albuterol Sulfate HFA 108 [...] Problem Status W/U Status Risk Notes Problem Screening for malignant neoplasm of colon (081106572) Encounter for screening for malignant neoplasm of colon (Z12.11) Active confirmed Problem History of adenomatous polyp of colon (541791707) History of adenomatous polyp of colon (Z86.010) Active confirmed Problem Diverticular disease of colon (404233895) Diverticulosis of large intestine without perforation or abscess without bleeding (K57.30) Active confirmed Problem Preprocedural examination (023388152452481) Preprocedural examination (Z01.818) Active confirmed Problem History of polyp of colon (situation) (873274259) History of colon polyps (Z86.010) Active confirmed Problem Long-term current use of aspirin (418045580157341) Aspirin long-term use (Z79.82) Active confirmed Plan Of Treatment Pending Test Test Name Order Date Pathology 03/12/2023 Future Test Test Name Order Date COLONOSCOPY 01/05/2017 COLONOSCOPY 12/14/2022 Insurance Providers Payer Name Payer Address Payer Phone Subscriber Number Group Number Insured Name Patient Relationship to Insured Coverage Start Date Coverage End Date [employer] Medicare Advantage Plan [address] [address] [place] [address] [id number] AUTUMN MAYER Self - patient is the insured Medical (General) History Medical History History ICD Code Hypertension Denies MD,DM,CVA,renal disease Colonoscopy at age 50 at [facility]-negative; colonoscopy in early 60's at [facility]--06/2013--tubular adenomas removed Migraines Hyperlipidemia Colonoscopy in 02/2017 with removal of 2 small tubular adenomas SVT-sees Dr. Morrow Mild asthma--uses inhaler regularly Surgical History Surgery Date(Month/Year) Left knee arthroscopy 1999 Left shoulder surgery for a fracture--garcia s hardware 2012 Bilateral carotid endarterectomy 2018 [place] teeth extraction
--- OUTSIDE RECORDS SUMMARY | 2024-11-21 08:26 | XMS_ITS | Clinical Summary ---
Author Organization [facility] Address [address] [place] [phone] Phone Care Team Providers Care Geodes[employer] Teacher Name Role Phone Cristobal Rodriguez MD Primary Care Provider [phone] Allergies No known active allergies Medications albuterol sulfate (ProAir RespiClick) 90 mcg/actuation aerosol powdr breath activated Inhale into the lungs as needed. Active aspirin 81 mg chewable tablet Take 81 mg by mouth daily. Active lisinopriL (PRINIVIL,ZESTRI L) 10 mg tablet Take 1 tablet (10 mg total) by mouth 1 (one) time each day. Take 1 Tablet by mouth daily. Active loratadine (CLARITIN) 10 mg tablet Take 10 mg by mouth daily. Active topiramate (TOPAMAX) 25 mg tablet Take 25 mg by mouth 2 times daily. Active rosuvastatin (CRESTOR) 20 mg tablet TAKE 1 TABLET BY MOUTH DAILY 90 tablet 1 10/20/2024 Active metoprolol succinate (TOPROL-XL) 25 mg 24 hr tablet Take 1 tablet (25 mg total) by mouth 1 (one) time each day. 90 tablet 2 10/21/2024 Active Active Problems Problem Noted Date Diagnosed Date Aortic root dilation (CMS/HCC V24) 11/05/2024 Assessment & Plan (11/05/2024 9:26 AM EDT): The patient was found to have a very mild dilation of the aortic root during his recent echocardiogram. The aortic root was noted to measure 4.0 cm which corresponds to an aortic root index of 2.2 cm/m . His ascending aorta was noted to have a normal diameter. The patient has a trileaflet aortic valve. He is on beta-huang therapy with metoprolol. Blood pressure is well-controlled. The patient should undergo a follow-up echocardiogram in 1 year. Hypocalcemia 11/05/2024 Assessment & Plan (11/05/2024 9:26 AM EDT): The patient was found to have a mild hypocalcemia during his recent laboratory testing from July 2024. His calcium level was noted to be 8.3. The patient was instructed to discuss this further with his primary care physician to determine if he will need any further evaluation or management for his mild hypocalcemia. The patient states that he has a follow-up appointment with his primary care physician in November 2024 and he will discuss his mild hypercalcemia with his primary care physician at that time. Abnormal EKG 07/30/2024 Assessment & Plan (11/05/2024 9:26 AM EDT): The patient was found to have an abnormal EKG during his EKG done in July 2024. Specifically, he was found to have a nonspecific T wave abnormality in the lateral leads. An echocardiogram was done which showed a normal biventricular function and normal LV regional wall motion. An exercise stress test was was also done. During the exercise stress test, the patient exercised for 5 minutes without experiencing any chest pain and without developing any abnormal EKG changes with exercise (in the setting of his abnormal baseline EKG). Nevertheless, the patient did not achieve the target heart rate due to beta-huang use and therefore the test was deemed to be nondiagnostic. On today's visit, the patient was noted to be completely asymptomatic from a cardiac standpoint. He continues on medical therapy with aspirin, rosuvastatin, and metoprolol. We discussed the possibility of a pharmacological stress test but the patient does not want to proceed with any additional stress testing at this point given that he is asymptomatic from a cardiac standpoint. Will proceed with a coronary artery calcium scoring test in order to evaluate if he has any significant coronary artery calcifications that would indicate the presence of significant coronary artery disease. Assessment & Plan (07/30/2024 9:11 AM EDT): The patient was noted to have a nonspecific T wave abnormality in the lateral leads on today's EKG which is new when compared to his prior EKG from April 2023. As such, we will order an echocardiogram to rule out any underlying structural heart disease that may be the cause of his new EKG changes. Furthermore, the patient has multiple risk factors for coronary artery disease (hypertension, hyperlipidemia, carotid artery stenosis); therefore, given his risk factors for CAD and new EKG changes, we will order an ischemic evaluation with an exercise stress test. The patient was instructed to avoid any extraneous physical activities until his cardiac evaluation is complete. Orders: Exercise stress test; Future Transthoracic echocardiogram (TTE) complete with PRN contrast, bubble, strain, and 3D order panel; Future perflutren lipid microsphere (DEFINITY) 1.3 mL in sodium chloride 0.9% 8.7 mL injection HTN (hypertension) 06/03/2018 Overview (02/21/2024): Last Assessment & Plan: The patient has a history of arterial hypertension. The patient's blood pressure today was noted to be well controlled. We'll continue the current antihypertensive medication regimen. Assessment & Plan (11/05/2024 9:26 AM EDT): The patient has a history of arterial hypertension. The patient's blood pressure today was noted to be well controlled. We'll continue the current antihypertensive medication regimen. Assessment & Plan (07/30/2024 9:11 AM EDT): The patient has a history of arterial hypertension. The patient's blood pressure today was noted to be well controlled. We'll continue the current antihypertensive medication regimen. Orders: ECG 12 lead Hyperlipidemia 06/03/2018 Overview (02/21/2024): Last Assessment & Plan: The patient has a history of hyperlipidemia. The patient is currently on simvastatin 40 mg orally daily. We will order a new lipid panel to evaluate the patient's current lipid control and determine if any adjustment are needed in the lipid lowering therapy. Assessment & Plan (11/05/2024 9:26 AM EDT): The patient has a history of hyperlipidemia. He also has a history of carotid artery stenosis. The patient is currently on medical therapy with rosuvastatin 20 mg daily. Last lipid panel showed an LDL of 71. Will continue his current therapy. Also, will order coronary artery calcium scoring test in order to rule out the possibility of any significant coronary artery calcifications that would indicate the presence of significant coronary artery disease. Orders: CT Heart Calcium Scoring wo Contrast; Future Assessment & Plan (07/30/2024 9:11 AM EDT): The patient has a history of hyperlipidemia. He also has a history of carotid artery stenosis and his LDL target is 70 or below. The patient is currently on rosuvastatin 20 mg orally daily. We will order a new lipid panel to evaluate the patient's current lipid control and determine if any adjustment are needed in the lipid lowering therapy. Orders: Comprehensive metabolic panel; Future Lipid panel with reflex to direct LDL; Future Migraines 06/03/2018 Seasonal allergies 06/03/2018 Bilateral carotid artery stenosis 03/11/2018 Overview (02/21/2024): s/p L endardectomy 04/02/2018. Last Assessment & Plan: The patient has a history of carotid artery stenosis status post left CEA in March 2018 and right CEA in July 2018. He is followed by the [facility] vascular surgery service (Dr. Diggs). The patient will continue to follow-up with the [facility] vascular surgery regarding continued monitoring of his carotid artery stenosis. Assessment & Plan (11/05/2024 9:26 AM EDT): The patient has a history of carotid artery stenosis. He is on medical therapy with aspirin and rosuvastatin. For his carotid artery stenosis, the patient is followed by the [facility] vascular surgery team. Encounters Date Type Department Care Team Description 11/13/2024 Telephone [facility] [address] [place] [address] OdalysPeter Beck MD 11/05/2024 8:50 AM EDT Office Visit [facility] [address] [place] [address] Peter Watson MD Primary hypertension (Primary Dx); Pure hypercholesterolemia ; Aortic root dilation (CMS/HCC V24); Bilateral carotid artery stenosis; Abnormal EKG; Hypocalcemia 10/20/2024 Telephone [facility] [address] [place] [address] Peter Watson MD 10/20/2024 Telephone [facility] [address] [place] [address] Peter Watson MD 09/16/2024 1:15 PM EDT Ancillary Procedure [facility] [address] [place] [id number] Abnormal EKG 09/08/2024 Telephone [facility] [address] [place] [address] Peter Watson MD from Last 3 Months Surgical History Surgery Date Site/Laterality Comments OTHER SURGICAL HISTORY 2012 Left PROCEDURE: SC CAPSULORRHAPHY GLENOHUMERAL JT PST W/WO BONE BLK; COMMENT: plate w/ 14 screws KNEE ARTHROSCOPY Right PROCEDURE: SC ARTHROSCOPY AID TX SPINE&/FX KNEE W/O FIXJ CAROTID ENDARTERECTOMY 04/02/2018 Left PROCEDURE: HISTORICAL CAROTID ENDART; COMMENT: Dr. Malloy [facility] COLONOSCOPY 02/2017 PROCEDURE: HISTORICAL COLONOSCOPY; COMMENT: No [...] Name Comments Heart attack Father Hypertension Mother [place], emphysema, lung cancer Relation Name Status Comments Father Mother Social History Tobacco Use Types Packs/Day Years Used Date Smoking Tobacco: Former Cigarettes Q uit: 01/18/2003 Smokeless Tobacco: Former Alcohol Use Standard Drinks/Week Comments Not Currently 0 (1 standard drink = 0.6 oz pur e alcohol) wine - 2 glasses per day Sex and Gender Information Value Date Recorded Sex Assigned at Not on file Legal Sex Male 10:34 PM EST Gender Identity Not on file Sexual Orientation Not on file Obstetrics History Last Filed Vital Signs Vital Sign Reading Time Taken Comments Blood Pressure 136/80 11/05/2024 8:37 AM EDT Pulse 64 11/05/2024 8:37 AM EDT Temperature - - Respiratory Rate - - Oxygen Saturation 97% 11/05/2024 8:37 AM EDT Inhaled Oxygen Concentration - - Weight 75.3 kg (166 lb) 11/05/2024 8:37 AM EDT Height 167.6 cm (5' 6 ) 11/05/2024 8:37 AM EDT Body Mass Index 26.79 11/05/2024 8:37 AM EDT Plan of Treatment Health Maintenance Due Date Last Done Comments Colorectal Cancer Screening: Colonoscopy 1950 Abdominal Aortic Aneurysm (AAA) Screen 01/14/2022 Falls Risk Assessment 01/14/2022 Hepatitis C Screening 01/14/2022 Medicare Annual Wellness Visit 01/14/2022 Social Influencers of Health Screening 01/14/2022 Depression Screening 02/06/2024 COVID-19 Vaccine ( season) 2024 01/28/2024, 02/09/2023, 12/21/2021, Additional history exists Influenza Vaccine (#1) 2024 , 12/12/2021, 12/05/2020, Additional history exists Hypertension/CHF/CAD Annual BMP Blood Test 08/01/2025 08/01/2024, 02/19/2018 DTaP,Tdap,and Td Vaccines (3 - Td or Tdap) 08/26/2028 08/26/2018, 03/05/2018 Cholesterol Screening (Lipid Panel) 08/01/2029 08/01/2024 Pneumococcal Vaccine: 50+ Years Completed 12/01/2017, 12/01/2017 RSV Immunization Adult Patients Completed 01/28/2024 Zoster Vaccines Completed 04/12/2024, 01/28/2024 HIB Vaccines Aged Out No longer eligi [...] to complete this topic RSV Immunization Patients Under 20 months Aged Out No longer eligible based on patient's age to complete this topic Varicella Vaccines Aged Out No longer eligible based on patient's age to complete this topic Procedures Procedure Name Priority Date/Time Associated Diagnosis Comments STRESS TEST ONLY EXERCISE Routine 09/16/2024 1:39 PM EDT Abnormal EKG COMPREHENSIVE METABOLIC PANEL Routine 08/01/2024 7:56 AM EDT Pure hypercholesterolemia LIPID PANEL WITH REFLEX TO DIRECT LDL Routine 08/01/2024 7:56 AM EDT Pure hypercholesterolemia from Last 3 Months or Most Recently Relevant to Health Maintenance Results * Exercise stress test (09/16/2024 1:39 PM EDT) Target HR 125 bpm CV STRESS ONLY Baseline HR 60 bpm CV STRES S ONLY Peak HR 92 bpm CV STRESS ONLY Estimated workload 7.1 METS CV STRESS ONLY Percent HR 63 % CV STRESS ONLY Exercise/inject ion duration (min) 5 min CV STRESS ONLY Exercise/inject ion duration (sec) 0 sec CV STRESS ONLY Max HR Percent 63 % CV ST RESS ONLY Baseline SBP 166 mmHg CV STRE SS ONLY Baseline DBP 79 mmHg CV STRE SS ONLY Peak SBP 130 mmHg CV STRESS ONLY Peak DBP 72 mmHg CV STRESS ONLY Rate Pressure Product 11,960.0 mmHg*bpm CV STRESS ONLY ST Depression (mm) 0 mm CV STRESS ONLY Anatomical Region Laterality Modality Cardiac Diagnost ic Narrative 10/06/2024 3:53 PM EDT 1. Nondiagnostic exercise stress test. 2. Exercise protocol: The patient exercised for 5 minutes. The patient achieved 63% of the Max predicted heart rate due to beta-huang use 3. Functional capacity: Average functional capacity for age and gender 4. Symptoms: No chest pain during the exercise protocol 5. Stress ECG: No ischemic ECG changes with exercise, in the setting of an abnormal baseline 6. Arrhythmias: No arrhythmias noted during the exercise protocol. The test was nondiagnostic given the failure to achieve 85% of the maximum predicted heart rate. Consider further evaluation with a pharmacological nuclear stress test, pharmacological stress echocardiogram, or cardiac CT if there is ongoing clinical concern about the possibility of underlying coronary artery disease. Stress Findings A Bud protocol stress test was performed. Overall, the patient's exercise capacity was average. The patient reached stage 2. Total stress time was 5 min and 0 sec. The test was stopped because the patient experienced fatigue. Blood pressure demonstrated a normal response. Heart rate demonstrated a blunted response. Onset of symptoms occurred at Stage 2 of the protocol. The patient reported fatigue during the stress test. No chest pain. ECG 73-year-old male with a past medical history significant for carotid artery stenosis, hyperlipidemia, SVT, hypertension, with an abnormal EKG, and to rule out ischemia. The patient is on metoprolol during testing. Baseline EKG: Sinus rhythm with incomplete right bundle branch block, nonspecific T wave abnormality There were no arrhythmias during stress. There is no ST segment changes during stress, in the setting of an abnormal baseline. There were no arrhythmias during recovery. The result of the stress ECG was non-diagnostic for ischemia due to failure to achieve 85 percent of the maximum age-predicted heart rate. Procedure Note Gordon Sarah NP / Peter Watson MD - 10/06/2024 1. Nondiagnostic exercise stress test. 2. Exercise protocol: The patient exercised for 5 minutes. The patientachieved 63% of the Max predicted heart rate due to beta-huang use 3. Functional capacity: Average functional capacity for age and gender 4. Symptoms: No chest pain during the exercise protocol 5. Stress ECG: No ischemic ECG changes with exercise, in the setting of anabnormal baseline 6. Arrhythmias: No arrhythmias noted during the exercise protocol. The test was nondiagnostic given the failure to achieve 85% of the maximumpredicted heart rate. Consider further evaluation with a pharmacologicalnuclear stress test, pharmacological stress echocardiogram, or cardiac CTif there is ongoing clinical concern about the possibility of underlyingcoronary artery disease. Peter Watson MD CV STRESS PROCEDURES F inal Result * (ABNORMAL) Lipid panel with reflex to direct LDL (08/01/2024 7:56 AM EDT) [facility] Cholesterol 156 0 - 200 mg/dL LAB CHEMISTRY METHOD 08/01/2024 10:32 AM EDT [facility] Triglycerides 209(H) 0 - 150 mg/dL LAB CHEMISTRY METHOD 08/01/2024 10:32 AM EDT [facility] HDL 43 >=40 mg/dL LAB CHEMISTRY METHOD 08/01/2024 10:32 AM EDT [facility] LDL Calculated 71 0 - 100 mg/dL LAB CHEMISTRY METHOD 08/01/2024 10:32 AM EDT [facility] VLDL Cholesterol Harshad 41.8 mg/dL LAB CHEMISTRY METHOD 08/01/2024 10:32 AM EDT [facility] Non HDL Chol. (LDL+VLDL) 113 <145 mg/dL LAB CHEMISTRY METHOD 08/01/2024 10:32 AM EDT [facility] Chol/HDL Ratio 3.6 0.0 - 4.4 LAB CHEMISTRY METHOD 08/01/2024 10:32 AM T [facility] Blood Venous blood specimen / Unknown Venipuncture / Unknown 08/01/2024 7:56 AM EDT 08/01/2024 7:56 AM EDT Peter Watson MD LAB BLOOD ORDERABLES F inal Result [facility] [address] [place] [address], [place] [phone] * (ABNORMAL) Comprehensive metabolic panel (08/01/2024 7:56 AM EDT) [facility] Signature Sodium 142 133 - 145 mmol/L LAB CHEMISTRY METHOD 08/01/2024 10:32 AM [facility] Potassium 4.3 3.5 - 5.5 mmol/L LAB CHEMISTRY METHOD 08/01/2024 10:32 AM [facility] Chloride 114(H) 96 - 110 mmol/L LAB CHEMISTRY METHOD 08/01/2024 10:32 AM [facility] CO2 23 21 - 32 mmol/L LAB CHEMISTRY METHOD 08/01/2024 10:32 AM [facility] Anion Gap 5 3 - 11 LAB CHEMISTRY METHOD 08/01/2024 10:32 AM [facility] Glucose 83 70 - 100 mg/dL LAB CHEMISTRY METHOD 08/01/2024 10:32 AM [facility] BUN 15 5 - 25 mg/dL LAB CHEMISTRY METHOD 08/01/2024 10:32 AM [facility] Creatinine 1.19 0.70 - 1.30 mg/dL LAB CHEMISTRY METHOD 08/01/2024 10:32 AM [facility] eGFR 64 >=60 mL/min/1. 73m2 LAB CHEMISTRY METHOD 08/01/2024 10:32 AM [facility] Comment:Calculation based on the Chronic Kidney Disease Epidemiology Collaboration (CKD-EPI) equation refit without adjustment for race. BUN/Creatinine Ratio 12.6 LAB CHEMISTRY METHOD 08/01/2024 10:32 AM [facility] Calcium 8.3(L) 8.5 - 10.5 mg/dL LAB CHEMISTRY METHOD 08/01/2024 10:32 AM [facility] AST (SGOT) 21 10 - 42 unit/L LAB CHEMISTRY METHOD 08/01/2024 10:32 AM EDT [facility] ALT (SGPT) 22 10 - 60 unit/L LAB CHEMISTRY METHOD 08/01/2024 10:32 AM EDT [facility] Alkaline Phosphatase 85 42 - 121 unit/L LAB CHEMISTRY METHOD 08/01/2024 10:32 AM EDT [facility] Total Protein 6.3 6.0 - 8.0 g/dL LAB CHEMISTRY METHOD 08/01/2024 10:32 AM EDT [facility] Albumin 3.6 3.2 - 5.0 g/dL LAB CHEMISTRY METHOD 08/01/2024 10:32 AM EDT [facility] Total Bilirubin 0.7 0.0 - 1.4 mg/dL LAB CHEMISTRY METHOD 08/01/2024 10:32 AM EDT [facility] Blood Venous blood specimen / Unknown Venipuncture / Unknown 08/01/2024 7:56 AM EDT 08/01/2024 7:56 AM EDT Peter Watson MD LAB BLOOD ORDERABLES F inal Result [facility] [address] [place] [address], from Last 3 Months or Most Recently Relevant to Health Maintenance Insurance [facility] MEDICARE Advance Directives Documents on File Type Date Recorded Patient Distribution Driver Expl anation Health Care Decision (hx) 03/25/2018 AD KENYATTA DIRECTIVE Care Teams [employer] Teacher Relationship Specialty Start Date End Date Cristobal Rodriguez MD [facility] [address] [place] [address] [address] [place] [address] PCP - General Internal Medicine 01/07/16
[2024-11-21 08:47] LABS: Hematocrit 42.9 % (42.0-52.0); Hemoglobin 13.7 g/dl (14.0-18.0); Mean Corpuscular HGB Conc 31.9 g/dl (31.0-36.0); Mean Corpuscular Hemoglobin 29.0 pg (27.0-33.0); Mean Corpuscular Volume 90.7 fL (80.0-98.0); NRBC Abs Auto 0.000 X10*3/uL (0.0-0.012); NRBC Pct Auto 0.0 /100WBC (0.0-0.2); Platelet Count 158 X10*3/uL (160-400); Red Blood Count 4.73 X10*6/uL (4.60-5.80); White Blood Count 4.7 X10*3/uL (4.8-10.8)
[2024-11-21 09:17] LABS: Alanine Aminotransferase 32 U/L (0-40); Albumin Level 4.0 g/dL (3.5-5.0); Alkaline Phosphatase 84 U/L (39-117); Anion Gap 9 (12-20); Aspartate Amino Transferase 34 U/L (5-37); Blood Urea Nitrogen 13 mg/dL (9-16); Calcium 8.5 mg/dL (8.4-10.2); Carbon Dioxide 23 mmol/L (22-29); Chloride 114 mmol/L (96-108); Cholesterol 139 mg/dL (<200); Estimated Glomerular Filt Rate > 60; HDL Cholesterol 33 mg/dL (>40); Potassium 4.4 mmol/L (3.3-5.1); Sodium 142 mmol/L (135-145); Total Protein 6.3 g/dL (6.5-8.0); Triglycerides 167 mg/dL (<150)
[2024-11-21 11:47] LABS: Microalbum/Creatinine Ratio Ur 57.6 ug/mg cr (<30)
== END 2024-11-21 08:09 | disposition home or self-care (01) ==
LOC: HO.LAB 08:08
PROVIDERS: PCP Physician Assistant; Visit Provider Physician Assistant
DX: I10 Essential (primary) hypertension (principal); E78.2 Mixed hyperlipidemia; R80.9 Proteinuria, unspecified
CPT/HCPCS: 36415; 80053; 80061; 82043; 82570; 85027

== ENCOUNTER 2024-11-24 08:37 | Outpatient (AMB) | payer MEDICARE, SELFPAY ==
--- NOTE | 2024-11-24 08:50 | A.OFFPC_ITS ---
Vital Signs 11/24/24 08:51 Height 5 ft 6 in Weight 163 lb 8 oz BMI 26.4 BP 132/68 Blood Pressure Location Lt brachial Position Sitting Pulse 60 Pulse Source Pulse Oximeter Temp 97.3 F Temp Source Temporal Artery Scan Pulse Oximetry (%) 97 Oxygen Delivery Method Room Air Intake Visit Reasons: f/u HTN Intake Note: Patient is here to follow up on HTN. Camp Program Director Required: No Corporate Services Manager: Not Required per policy Accompanied by: Self / Same As Patient Allergies No Known Allergies Allergy (Verified 11/24/24 09:29) Medication List - Last Reconciled 11/24/24 by Ehsan Payne PA-C albuterol sulfate 90 mcg/actuation 1 inh inhalation QID PRN 30 days aspirin (Adult Aspirin Regimen) 81 mg PO DAILY fluticasone propionate 50 mcg/actuation 1 spray intranasal BID PRN ipratropium bromide 2 sprays intranasal BID lisinopril 10 mg PO DAILY 90 days metoprolol succinate ER 25 mg PO DAILY rosuvastatin (Crestor) 20 mg PO DAILY topiramate 50 mg (2 x 25 mg) PO BID 90 days Tobacco use date assessed: 11/24/24 Fall risk assessment: No Falls in past year Last assessed Fall Risk: 11/24/24 Dental Screening Dental Screen Date: 05/22/24 HPI f/u HTN HPI Details Iker is a 73 y/o M here today for a follow-up visit. Patient has a Pmhx of HLD, Migraines, HTN, carotid stenosis. 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 Most recent labs noted to be a calcium of 8.5. He has made some dietary changes trying to increase his calcium rich foods. ? .. ? HTN: Patient's blood pressure acceptable today in office. He does use metoprolol consistently, only use his lisinopril on as needed basis.. He reports at home having low blood pressure readings 90 to 100 systolic. He does report at these times feeling somewhat tired and fatigued. Noted mild Microalbuminuria ? .. ? Carotid stenosis :? Is followed yearly by /Vascular.? Denies any further episodes of dizziness were syncope. Patient is a smoker has quit several years ago. Recent Carotid US -->There is severe atherosclerotic disease in the bilateral common carotid and internal carotid arteries, however by velocity criteria to disease corresponds to less than 50% stenosis. Patient continues aspirin and statin therapy. Most recent lipid panel showing excellent control of his total cholesterol and LDL Continues to follow [place] [facility] and getting ultrasounds annually ? .. ? HLD: Patient on statin therapy and reporting no side effects. Most recen t lipid panel showing acceptable LDL and total cholesterol. Has been making lifestyle modifications to his diet to reduce his cholesterol as well. Laboratory Tests 11/21/24 11/21/24 08:20 08:25 RBC 4.73 Creatinine 1.10 Cholesterol 139 LDL Cholesterol, C alc 73 Urine Microalbumin 38.0 PFSH Medical History Non-pressure chronic ulcer of skin of other sites with unspecified severity Wounds, multiple Asthma History of supraventricular tachycardia Migraines Osteoarthritis Carotid stenosis Elevated cholesterol HTN (hypertension) Tubular adenoma of colon Former smoker Surgical History H/O colonoscopy H/O left knee surgery (~1999) H/O carotid endarterectomy S/P wisdom tooth extraction Hx of shoulder surgery Family History Father Myocardial infarction Mother Hypertension Emphysema lung Myocardial infarction Substance use disorder Son No problems noted. Son No problems noted. Son No problems noted. Daughter No problems noted. 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 Cognitive needs: No Hearing needs: No Vision needs: Yes (Glasses) Questionnaire Thrive Questionnaire Date Thrive assessed: 05/15/24 I am a: Patient What is your living situation today?: I have a steady place to live Within the past 12 months, did the food you bought not last and you didn't have the money to get more?: Never true Within the past 12 months, did you worry whether your food would run out before you got money to buy more?: Never true Do you have trouble paying for medicines?: No Do you have trouble getting transportation to medical appointments?: No Do you have trouble paying your heating and electricity bill?: No Do you have trouble taking care of your child, family member or friend?: No Do you have trouble with day-to-day activities such as bathing, preparing meals, shopping, managing finances, etc.?: No Are you currently unemployed and looking for a job?: No Are you interested in more education?: No Please select the resources that you would like help with: None Currently or been in a relationship where the following occur: No concerns reported THRIVE Score: 0 JEFF-7 AMB Questionnaire JEFF-7 Date JEFF - 7 assessed: 05/22/24 Source: Developed by Drs. Tim Power, Digna Ascencio, Dani Herrera and colleagues, with an educational dianelys from [employer]. Review of Systems Const Denies headache(s) Eyes Denies loss of vision ENT Denies vertigo, Denies dizziness, Denies headache(s) and Denies sore throat Card Denies chest pain, Denies leg edema and Denies lightheadedness Resp Denies cough, Denies hemoptysis and Denies wheezing GI Denies abdominal pain, Denies melena, Denies constipation, Denies diarrhea and Denies vomiting Denies dysuria, Denies urinary frequency and Denies urinary urgency Musc Denies arthralgias, Denies joint swelling, Denies numbness and Denies tingling Neuro Denies Abnormal speech present, Denies behavioral changes, Denies vertigo, Denies dizziness, Denies headache(s), Denies loss of vision, Denies memory loss, Denies numbness and Denies tingling Psych Denies anxiety, Denies behavioral changes, Denies depression, Denies memory loss and Denies panic attacks Ronal/Lymph Denies easy bleeding and Denies easy bruising Aller/Immun Denies wheezing Physical exam (Primary Care) Vital Signs: Last Vital Signs Temp 97.3 F 11/24/24 08:51 Pulse 60 11/24/24 08:51 BP 132/68 11/24/24 08:51 Pulse Ox 97 11/24/24 08:51 Oxygen Delivery Method Room Air 11/24/24 08:51 BMI result Body Mass Index 26.4 Tobacco/Smoking Status: Tobacco use Status Tobacco use date assessed 11/24/24 11/24/24 08:55 Patient Tobacco Use Status Former Tobacco user 11/24/24 08:55 e-Cigarette/Vaping Use Never Used 11/24/24 08:55 Thrive Assessment: Date of Thrive Assessment Date Thrive assessed 05/15/24 11/24/24 08:55 Currently or been in a relationship where the following occur: No concerns reported Const General: healthy appearing, no acute distress, alert and awake Nutritional Appearance: well nourished Orientation/consciousness: oriented to person, oriented to place and oriented to time HENMT Ears: TM's normal bilaterally General nose exam: Normal nasal mucous membranes and turbinates present Eyes Conjunctivae: conjunctivae normal Sclerae: sclerae normal Pupils: Equal, round and reactive pupils present Neck Neck: Yes no lymphadenopathy and Yes no JVD Thyroid: Thyroid normal Carotids: no bruits Resp Effort & Inspection: normal respiratory effort and not tachypneic Auscultation: no crackles, no rales, no rhonchi and no wheezes Cardio Rate: regular rate Rhythm: regular rhythm Heart sounds: no murmurs and normal S1 and S2 GI Palpation (GI): Soft to palpation, nontender, no hepatomegaly and no splenomegaly Auscultation: normal bowel sounds Skin General skin exam: no rashes or lesions noted and dry skin Neuro General: oriented to person, oriented to place and oriented to time Cranial nerves: Yes Equal, round and reactive pupils present Speech: No Abnormal speech present Gait exam (Neuro): Normal gait present Motor exam (neuro): no tremor noted Extrem Right upper extremity: full ROM Left upper extremity: full ROM Right lower extremity: full ROM; no edema Left lower extremity: full ROM; no edema Psych Mental Status: mental status grossly normal Speech and movement: Normal speech and movement present Affect: normal affect Attitude: cooperative Thought process: Normal thought process present Coding Level of Care Code Est Pt Level 4 (75342) Diagnoses Mixed hyperlipidemia E78.2 Hyperlipidemia type: mixed hyperlipidemia Primary hypertension I10 Hypertension type: primary hypertension Bilateral carotid artery stenosis I65.23 Laterality: bilateral Hypertriglyceridemia E78.1 Microalbuminuria R80.9 Hypocalcemia E83.51 Assessment & Plan Assessment & Plan (1) HLD (hyperlipidemia): Code(s): E78.5 - Hyperlipidemia, unspecified Category: Medical Qualifiers: Hyperlipidemia type: mixed hyperlipidemia Qualified Code(s): E78.2 - Mixed hyperlipidemia Plan: Patient's most recent lipid panel showing excellent control of his total cholesterol and LDL. He continues on statin therapy without any particular side effects. His triglycerides are still borderline high and will work on dietary modifications. Goal LDL to remain below 100 (2) HTN (hypertension): Code(s): I10 - Essential (primary) hypertension Category: Medical Qualifiers: Hypertension type: primary hypertension Qualified Code(s): I10 - Essential (primary) hypertension Plan: Patient's blood pressure under excellent control. He reports he consistently uses his metoprolol though only has to use lisinopril from time to time. Most recent microalbumin has improved. Goal blood pressure to remain below 140/90 (3) Carotid stenosis: Comment: 2019 - bilateral carotid endarterectomy by Dr. Malloy Code(s): I65.29 - Occlusion and stenosis of unspecified carotid artery Category: Medical Qualifiers: Laterality: bilateral Qualified Code(s): I65.23 - Occlusion and stenosis of bilateral carotid arteries Plan: Patient continues to follow vascular surgeon here in [place]. He does get regular carotid ultrasounds which has been stable. He otherwise denies any further symptoms related to his carotid stenosis.. (4) Hypertriglyceridemia: Code(s): E78.1 - Pure hyperglyceridemia Category: Medical Plan: As above patient's triglycerides are borderline high and will work on lifestyle and dietary modifications to reduce his triglycerides. (5) Microalbuminuria: Code(s): R80.9 - Proteinuria, unspecified Category: Medical Plan: Noted mild microalbuminuria most recent labs. His blood pressure seems to be well controlled. He will try to increase his fluids. Will recheck his microalbumin in 6 months. Will consider Nephrology evaluation (6) Hypocalcemia: Code(s): E83.51 - Hypocalcemia Category: Medical Plan: Most recent serum calcium stabilized at 8.5. He will continue on a calcium rich food. Orders: Orders Comprehensive [place]. Panel Fast Today I10 - Essential (primary) hypertension Microalbumin, Random (w Creat) Today R80.9 - Proteinuria, unspecified Lipid Panel Today E78.1 - Pure hyperglyceridemia Complete Blood Count no Diff Today I10 - Essential (primary) hypertension Prostate Specific Antigen Scr Today I10 - Essential (primary) hypertension, Z12.5 - Encounter for screening for malignant neoplasm of prostate Patient Instructions: Goal: Blood pressure to remain below 140/90, LDL to be optimally below 70 Barriers: Adherence to physical activity and healthy eating habits
[2024-11-24 08:51] VITALS: BP 132/68; PULSE 60; TEMP 36.3; O2SAT 97; BMI 26.4
--- OUTSIDE RECORDS SUMMARY | 2024-11-24 09:30 | XMS_ITS | Clinical Summary ---
Author Organization [facility] Address [address] [place] [address] Phone Care Team Providers Care Lacing Operator Name Role Phone Cristobal Rodriguez MD Primary Care Provider [phone] Allergies No known active allergies Medications albuterol [...] July 2018. He is followed by the [facility] vascular surgery service (Dr. Diggs). The patient will continue to follow-up with the [facility] vascular surgery regarding continued monitoring of his carotid artery stenosis. Assessment & Plan (11/05/2024 9:26 AM EDT): The patient has a history of carotid artery stenosis. He is on medical therapy with aspirin and rosuvastatin. For his carotid artery stenosis, the patient is followed by the [place] vascular surgery team. Encounters Date Type Department Care Team Description 11/13/2024 Telephone [facility] [address] [place] [address] OdalysPeter Beck MD 11/05/2024 8:50 AM EDT Office Visit [facility] [address] [place] [address] Peter Watson MD Primary hypertension (Primary Dx); Pure hypercholesterolemia ; Aortic root dilation (CMS/HCC V24); Bilateral carotid artery stenosis; Abnormal EKG; Hypocalcemia 10/20/2024 Telephone [facility] [address] [place] [address] Peter Watson MD 10/20/2024 Telephone [facility] [address] [place] [address] Peter Watson MD 09/16/2024 1:15 PM EDT Ancillary Procedure [facility] [address] [place] [id number] Abnormal EKG 09/08/2024 Telephone [facility] [address] [place] [address] Peter Watson MD from Last 3 Months Surgical History Surgery Date Site/Laterality Comments OTHER SURGICAL HISTORY 2012 Left PROCEDURE: [place] CAPSULORRHAPHY GLENOHUMERAL JT PST W/WO BONE BLK; COMMENT: plate w/ 14 screws KNEE ARTHROSCOPY Right PROCEDURE: [place] ARTHROSCOPY AID TX SPINE&/FX KNEE W/O FIXJ CAROTID ENDARTERECTOMY 04/02/2018 Left PROCEDURE: HISTORICAL CAROTID ENDART; COMMENT: Dr. Malloy [facility] COLONOSCOPY 02/2017 PROCEDURE: HISTORICAL COLONOSCOPY; COMMENT: No [...] Name Comments Heart attack Father Hypertension Mother [place], emphysema, lung cancer Relation Name Status Comments [...] to direct LDL (08/01/2024 7:56 AM EDT) [facility] Cholesterol 156 0 - 200 mg/dL LAB CHEMISTRY METHOD 08/01/2024 10:32 AM EDT [facility] Triglycerides 209(H) 0 - 150 mg/dL LAB CHEMISTRY METHOD 08/01/2024 10:32 AM EDT [facility] HDL 43 >=40 mg/dL LAB CHEMISTRY METHOD 08/01/2024 10:32 AM EDT [facility] LDL Calculated 71 0 - 100 mg/dL LAB CHEMISTRY METHOD 08/01/2024 10:32 AM EDT [facility] VLDL Cholesterol Harshad 41.8 mg/dL LAB CHEMISTRY METHOD 08/01/2024 10:32 AM EDT [facility] Non HDL Chol. (LDL+VLDL) 113 <145 mg/dL LAB CHEMISTRY METHOD 08/01/2024 10:32 AM EDT [facility] Chol/HDL Ratio 3.6 0.0 - 4.4 LAB CHEMISTRY METHOD 08/01/2024 10:32 AM T [facility] Blood Venous blood specimen / Unknown Venipuncture / Unknown 08/01/2024 7:56 AM EDT 08/01/2024 7:56 AM EDT Peter Watson MD LAB BLOOD ORDERABLES F inal Result [facility] [address] [place] [address], [place] [phone] * (ABNORMAL) Comprehensive metabolic panel (08/01/2024 7:56 AM EDT) [facility] Signature Sodium 142 133 - 145 mmol/L LAB CHEMISTRY METHOD 08/01/2024 10:32 AM [facility] Potassium 4.3 3.5 - 5.5 mmol/L LAB CHEMISTRY METHOD 08/01/2024 10:32 AM [facility] Chloride 114(H) 96 - 110 mmol/L LAB CHEMISTRY METHOD 08/01/2024 10:32 AM [facility] CO2 23 21 - 32 mmol/L LAB CHEMISTRY METHOD 08/01/2024 10:32 AM [facility] Anion Gap 5 3 - 11 LAB CHEMISTRY METHOD 08/01/2024 10:32 AM [facility] Glucose 83 70 - 100 mg/dL LAB CHEMISTRY METHOD 08/01/2024 10:32 AM [facility] BUN 15 5 - 25 mg/dL LAB CHEMISTRY METHOD 08/01/2024 10:32 AM [facility] Creatinine 1.19 0.70 - 1.30 mg/dL LAB CHEMISTRY METHOD 08/01/2024 10:32 AM [facility] eGFR 64 >=60 mL/min/1. 73m2 LAB CHEMISTRY METHOD 08/01/2024 10:32 AM [facility] Comment:Calculation based on the Chronic Kidney Disease Epidemiology Collaboration (CKD-EPI) equation refit without adjustment for race. BUN/Creatinine Ratio 12.6 LAB CHEMISTRY METHOD 08/01/2024 10:32 AM [facility] Calcium 8.3(L) 8.5 - 10.5 mg/dL LAB CHEMISTRY METHOD 08/01/2024 10:32 AM [facility] AST (SGOT) 21 10 - 42 unit/L LAB CHEMISTRY METHOD 08/01/2024 10:32 AM EDT [facility] ALT (SGPT) 22 10 - 60 unit/L LAB CHEMISTRY METHOD 08/01/2024 10:32 AM EDT [facility] Alkaline Phosphatase 85 42 - 121 unit/L LAB CHEMISTRY METHOD 08/01/2024 10:32 AM EDT [facility] Total Protein 6.3 6.0 - 8.0 g/dL LAB CHEMISTRY METHOD 08/01/2024 10:32 AM EDT [facility] Albumin 3.6 3.2 - 5.0 g/dL LAB CHEMISTRY METHOD 08/01/2024 10:32 AM EDT [facility] Total Bilirubin 0.7 0.0 - 1.4 mg/dL LAB CHEMISTRY METHOD 08/01/2024 10:32 AM EDT [facility] Blood Venous blood specimen / Unknown Venipuncture / Unknown 08/01/2024 7:56 AM EDT 08/01/2024 7:56 AM EDT Peter Watson MD LAB BLOOD ORDERABLES F inal Result [facility] [address] [place] [address], from Last 3 Months or Most Recently Relevant to Health Maintenance Insurance 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
--- OUTSIDE RECORDS SUMMARY | 2024-11-24 09:30 | XMS_ITS | Patient Health Record ---
Author Organization [facility] Address [address] [place] [address] Care Team Providers Care Data Entry Processor Name Role Phone Ehsan Payne Primary Care Provider Tim Jones Unavailable [phone] Allergies Allergen (clinical drug ingredient) Drug/Non Drug [...] Problem Screening for malignant neoplasm of colon (663526972) Encounter for screening for malignant neoplasm of colon (Z12.11) Active confirmed Problem History of adenomatous polyp of colon (280811163) History of adenomatous polyp of colon (Z86.010) Active confirmed Problem Diverticular disease of colon (580830470) Diverticulosis of large intestine without perforation or abscess without bleeding (K57.30) Active confirmed Problem Preprocedural examination (058468396859120) Preprocedural examination (Z01.818) Active confirmed Problem History of polyp of colon (situation) (763691290) History of colon polyps (Z86.010) Active confirmed Problem Long-term current use of aspirin (460238619296181) Aspirin long-term use (Z79.82) Active confirmed Plan Of Treatment Pending Test Test Name Order Date Pathology 03/12/2023 Future Test Test Name Order Date COLONOSCOPY 01/05/2017 COLONOSCOPY 12/14/2022 Insurance Providers Payer Name Payer Address Payer Phone Subscriber Number Group Number Insured Name Patient Relationship to Insured Coverage Start Date Coverage End Date [employer] Medicare Advantage Plan [address] [address] [place] [address] [id number] [employer] Self - patient is the insured Medical (General) History Medical History History ICD Code Hypertension Denies MA,DM,CVA,renal disease Colonoscopy at age 50 at [facility]-negative; colonoscopy in early 60's at [facility]--06/2013--tubular adenomas removed Migraines Hyperlipidemia Colonoscopy in 02/2017 with removal of 2 small tubular adenomas SVT-sees Dr. Morrow Mild asthma--uses inhaler regularly Surgical History Surgery Date(Month/Year) Left knee arthroscopy 1999 Left shoulder surgery for a fracture--[facility] hardware 2012 Bilateral carotid endarterectomy 2018 [place] teeth extraction
== END 2024-11-24 09:45 | disposition home or self-care (01) ==
LOC: HO.HMCH 08:38
PROVIDERS: PCP Physician Assistant; Visit Provider Physician Assistant
DX: E78.2 Mixed hyperlipidemia (principal); I10 Essential (primary) hypertension; I65.23 Occlusion and stenosis of bilateral carotid arteries; E78.1 Pure hyperglyceridemia; R80.9 Proteinuria, unspecified; E83.51 Hypocalcemia

== ENCOUNTER → 2024-11-24 08:37 | Outpatient (BNVA) | payer MEDICARE, SELFPAY | PROVIDERS: PCP Physician Assistant; Visit Provider Physician Assistant | DX: I10 Essential (primary) hypertension (principal); E78.2 Mixed hyperlipidemia; G43.909 Migraine, unspecified, not intractable, without status migrainosus; I65.23 Occlusion and stenosis of bilateral carotid arteries; E78.1 Pure hyperglyceridemia; R80.9 Proteinuria, unspecified; E83.51 Hypocalcemia | CPT/HCPCS: 99212 ==